=== PATIENT | female | born 1955 | race Caucasian/White ===

== ENCOUNTER 2017-01-11 11:43 | Inpatient (IN) | payer OTHER ==
[~2017-01-11] VITALS: Ht 167.6 cm; Wt 104.7 kg
[~2017-01-11 11:43] MED LIST: ADV250INHA INH; FLE10 PO; HCTZ25 PO; HYDROCODONE PO; LEVOTHYROXINE 125MCG PO; MELO15TA14 PO; MULT-1018 PO; NEX40C PO; TOLT4CAP PO; VITA-212 PO; ZES10 PO
[2017-01-11 11:46] VITALS: BP 126/85; PULSE 90; RESP 18; O2SAT 98
[2017-01-11] MEDS ORDERED: 0.9% Sodium Chloride 1,000 ML IV ONE ×2 (12:04→12:35)
[2017-01-11] MEDS ORDERED: Ondansetron 2 mg/mL 2 mL Inj IVPUSH ONE (12:05)
[2017-01-11] MEDS ORDERED: Piperacillin-Tazo 3.375 Gm Inj 3.375 GM in Dextrose 5% Minibag Plus 50 ML IV ONE (12:30)
[2017-01-11] MEDS ORDERED: Iohexol 300 mg/mL 30 mL Inj PO ONE (12:30)
--- NOTE | 2017-01-11 12:31 | ED.REPORT ---
HPI-Abd Pain F 40 and Over Date of Service Jan 11, 2017 ED Provider: Roni Lerma MD Pt is a 61 year old female presenting to the ED complaining of lower abdominal pain onset 1 week ago. Associated symptoms include nausea and vomiting (dry heaving). Denies diarrhea currently, although she did have some until yesterday. Pt was seen by her PCP 4 days ago and was placed on antibiotics for bladder infection with no relief and was sent for CT scan which showed diverticulitis. Her symptoms are persistent despite the antibiotics. Nursing Notes Stated Complaint: SENT FROM [facility] Chief Complaint: Female Abdominal Pain Nursing Notes Reviewed: Yes (Vast not reconciled) Allergies: Coded Allergies: oxybutynin (Verified Allergy, Severe, RASH, 01/11/17) phenobarbital (Verified Allergy, Severe, RASH, 01/11/17) Scheduled Budesonide/Formoterol 80-4.5 mcg Inh (Symbicort 80-4.5 mcg Inh) 120 Puff Inhaler 2 PUFFS INHALATION BID Ciprofloxacin Hcl (Cipro (eq) 500 MG-6 Tab Prepack) 1 Pkg Pkg 500 MG PO BID Esomeprazole Magnesium (Esomeprazole Magnesium) 40 Mg Capsule.dr 40 MG PO DAILY Estradiol (Estrace) 42.5 Gm Cream.appl 1 APPLIC VAGINAL BID Hydrochlorothiazide (Hydrochlorothiazide) 25 Mg Tablet 25 MG PO DAILY Levothyroxine (Levothyroxine) 125 Mcg Tablet 125 MCG PO DAILY Lisinopril (Lisinopril) 10 Mg Tablet 10 MG PO DAILY Scheduled PRN Albuterol HFA (Proair HFA) 8.5 Gm Hfa.aer.ad 2 PUFFS INHALATION Q4H PRN PRN For Shortness of Breath Albuterol Neb Soln (Albuterol Neb Soln) 2.5 Mg/3 Ml Vial.neb 3 ML INHALATION QID PRN PRN For Shortness of Breath Fluticasone Propionate (Fluticasone Propionate Nasal) 16 Gm [place].susp 1-2 SPRAYS NASAL DAILY PRN PRN For Congestion Naproxen Sodium (Aleve) 220 Mg Capsule 440 MG PO BID PRN PRN For Pain Rizatriptan (Rizatriptan) 10 Mg Tablet 10 MG PO DIRECTED PRN PRN migraine General Time Seen by MD: 12:02 Chief Complaint Abdominal pain Hx Obtained From: Patient Arrived By: Walk-in Sudden in Onset?: No Onset Occurred: 1 week ago Symptom Duration: Since onset Progression since Onset: Constant Location: : Abdomen lower Severity: Current: Moderate Severity: Maximum: Severe Associated with: Reports: Nausea, Vomiting, Denies: Diarrhea Recent Healthcare: No recent hospitalization, Recent doctor visit Similar Sx Previous: No Past Medical History Past Medical History Notes: Diverticulitis diagnosed by CT scan earlier in this week January 08 - please see CT scan, initial concern for the phlegmon versus developing abscess Med list as of 01/12/2016 included: Cipro plus Flagyl added Saturday Her own Aleve Cymbalta Flonase Hydrochlorothiazide Levothyroxine Lisinopril Nexium Pyridium rizatriptan symbicort Past Medical History Hypertension Hypothyroidism History of colon polyps GERD Asthma History of right shoulder bursitis History of retinal artery occlusion September 2015 Fibromyalgia Past Surgical History Appendectomy Hysterectomy (ovaries present) Tonsillectomy Colonoscopy 2007, for tubular adenoma Left total hip replacement 2012 Left knee arthroscopy 2014 Right knee arthroscopy 2015 Smoking History Unknown if Ever Smoker Ambulatory Status Independent Review of Systems Respiratory: Denies: Shortness of breath GI: Reports: Abdominal pain, Nausea, Vomiting, Denies: Diarrhea Complete sys rev & neg: except as marked. Physical Exam Vital Signs Vital Signs (First) Date Time Temp Pulse Resp B/P Pulse Ox O2 Delivery O2 Flow Rate FiO2 01/11/17 11:46 36.8 90 18 126/85 98 Room Air Initial VS: Reviewed, Vital signs normal Head / Eyes: Atraumatic, Normocephalic, PERRL ENT: Mucous membranes moist, Conjunctiva normal, No scleral icterus Extremities: Vascular intact, Neuro intact, No swelling, No tenderness Skin: Warm, Dry, No cyanosis Neurologic: Alert, Oriented, Nonfocal Psychiatric: Mood/affect normal, Behavior normal, Normal thought content General/Constitutional: Awake, Alert, No acute distress Distress / Hydration: Positive: Dehydration mild Fatigued Respiratory / Chest: Breath sounds NL, Breath sounds = bilat, No respiratory distress, No rales, No rhonchi, No wheezing, No stridor Cardiovascular: Heart rate NL, Regular rhythm, Heart sounds NL, Peripheral circulation NL Abdomen: No guarding, No rebound Tenderness/Guarding/Rebound: Positive: Tender RLQ... (Moderate) Interpretation & Diagnostics Interpretation & Diagnostics: Please see CT scan obtained as an outpatient January 08 Lab Results Interpretation Result Diagram: 01/11/17 1225 01/11/17 1225 Test 01/11/17 12:20 01/11/17 12:25 Urine Color Yellow (YELLOW) Urine Appearance Hazy (CLEAR,HAZY) Urine pH 7.5 (5.0-8.0) Urine Specific [place] 1.010 (1.003-1.035) Urine Protein Tracemg/dL (NEG,TRACE) Urine Glucose (UA) Negativemg/dL (NEGATIVE) Urine Ketones Negativemg/dL (NEGATIVE) Urine Occult Blood Trace (NEGATIVE) Urine Nitrite Negative (NEGATIVE) Urine Bilirubin Negative (NEGATIVE) Urine Urobilinogen Normalmg/dL (NORMAL) Urine Leukocyte Esterase Negative (NEGATIVE) Urine RBC 0-2/hpf (0-2) Urine WBC 0-5/hpf (0-5) Urine Epithelial Cells Occasional/hpf (NONE-MOD) Urine Crystals Amorphous phosphates Urine Bacteria Few/hpf (NONE-FEW) Urine Hyaline Casts None/lpf (NONE) Urine Granular Casts None seen (NONE SEEN) Urine Waxy Casts None seen (NONE SEEN) Urine Red Blood Cell Casts None seen (NONE SEEN) Urine White Blood Cell Casts None seen (NONE SEEN) Urine Mucus None seen (None Seen) Urine Trichomonas None seen (NONE SEEN) Urine Yeast None (NONE SEEN) Urinalysis Comment None Urine Culture Reflexed Not indicated White Blood Count 11.7th/mm3 (3.8-10.1) Red Blood Count 4.31mil/mm3 (3.90-5.20) Hemoglobin 13.1g/dL (12.0-15.6) Hematocrit 37.8% (35.0-46.0) Mean Corpuscular Volume 87.7fL (81-100) Mean Corpuscular Hemoglobin 30.4pg (27.0-35.0) Mean Corpuscular Hemoglobin Concent 34.7% (32.0-37.0) Red Cell Distribution Width 12.7% (12.3-15.4) Platelet Count 396bil/L (150-400) Neutrophils (%) (Auto) 76.2% (40-74) Lymphocytes (%) (Auto) 9.8% (14-46) Monocytes (%) (Auto) 10.3% (4-12) Eosinophils (%) (Auto) 2.7% (0-5) Basophils (%) (Auto) 0.3% (0-3) Sodium Level 141mEq/L (134-144) Potassium Level 4.0mEq/L (3.5-5.2) Chloride Level 101mEq/L (97-108) Carbon Dioxide Level 25mmol/L (18-29) Blood Urea Nitrogen 19mg/dL (8-27) Creatinine 0.59mg/dL (0.57-1.00) Estimat Glomerular Filtration Rate 148mL/min (>59) Glucose Level 101mg/dL (60-99) Lactic Acid Level 0.8mmol/L (0.4-2.0) Calcium Level 10.0mg/dL (8.5-10.1) Magnesium Level 1.8mg/dL (1.6-2.6) Total Bilirubin 0.4mg/dL (0.0-1.2) Aspartate Amino Transf (AST/SGOT) 15U/L (0-50) Alanine Aminotransferase (ALT/SGPT) 12U/L (0-32) Alkaline Phosphatase 130U/L (25-165) Total Protein 6.9g/dL (6.4-8.4) Albumin 3.2g/dL (3.4-5.0) Lipase 13U/L (13-60) Lab Results Interpretation: CBC positive leukocytosis CMP normal Lactic acid normal CT Abd / Pelvis Interpretation IMPRESSION: 1. Acute diverticulitis. When the patient's acute symptoms have resolved, colonoscopy would be helpful to know exclude the possibility of an underlying lesion. 2. 2 loculated fluid collections within the pelvis are compatible with abscesses. Both of these have increased in size since the prior study. These raise the suspicion for a contained perforated diverticulum. No free air is evident. 3. No bowel obstruction. 4. Probable right hepatic hemangioma appears unchanged. 5. Right basilar pulmonary nodule. Six-month followup CT of the chest is recommended. Dictated by: Ramiro Mariano M.D. on 01/11/2017 at 13:19 Study type: Abdominal CT IV contrast, Abdom CT oral contrast Interpretation / Wet Read by: Interpret - Radiologist, Discussed w radiologist Re-Eval/Medical Decision Med Decision/Clinical Course This is a 61-year-old female who developed symptoms over this past weekend, diagnosis of possible UTI and started on Cipro on Saturday, but having abdominal pain on Saturday when he saw the PCP, had a CT that was positive for diverticulitis with possible phlegmon and was continued on Cipro with Flagyl added. However while she has not had fever, she has continued have ongoing pain it has been getting worse over the past couple days, a poor appetite with some nausea-so was referred back into the ED. He has normal vitals and is not clinically toxic, she has mild right lower quadrant tenderness with where her pain began. She is status post appendectomy. Labs were obtained and revealed trace leukocytosis, but a normal lactic acid. She is hydrated. And a CT with oral and IV contrast was obtained that suggest ongoing, worsening diverticulitis with 2 small areas of possible abscess and perforated contained diverticula that are not amenable to percutaneous drainage per the radiologist. The patient's been started on Zosyn, and the Flagyl's been given parenterally. The patient's been hydrated and being admitted to the medicine service. Surgery has been consulted. The patient is nontoxic, has a nonsurgical abdomen, only mild leukocytosis, and normal vitals. And is nothing by mouth, continue IV fluids, IV antibiotics, and surgical consultation. Source of Hx: Old records Re-Evaluation/Progress : Time of Eval: 12:34 Patient Status: Condition improved Re-Evaluation/Progress Note: Discussed plan for contrast CT and admission. Consultation #1: Referral / Consult Name: Jn Pascual MD Consulted With: Hospitalist Call Returned at: 14:10 Client Services Manager: Will see patient, Agrees with plan, Accepts admit Consultation #2: Call Returned at: 14:38 Note: Radiology. Get a consultation with surgery. Consultation #3: Referral / Consult Name: Tabatha Fierro MD Consulted With: Surgeon Call Returned at: 14:41 Client Services Manager: Will see patient Counseled Regarding: Diagnosis, Lab results, Need for follow-up, When/why to return to ED Discharge & Departure Primary Impression: Acute diverticulitis Additional Impression: Intestinal diverticular abscess Disposition: ADMITTED TO HOSPITAL Discharge Condition All VS Reviewed: Yes Condition: Improved Referrals: Leslie Avila MD (PCP) Scribe Attestation Portions of this note were transcribed by Helene Wallace. IDr. Lerma personally performed the history, physical exam and medical decision-making; I reviewed and confirmed the accuracy of the information in the transcribed note. Signed by: Mohan ePters, 01/11/2017 at 1445. copies to: Leslie Avila MD, Matthew F MD Jan 11, 2017 12:31 HELENE WALLACE Jan 11, 2017 12:59
[2017-01-11] MEDS: HYDROmorphone 0.5 mg/0.5 mL iSecure Syringe IVPUSH PRN ×2 (12:34→14:36)
[2017-01-11] MEDS ORDERED: metroNIDAZOLE Inj 1,000 MG in IV Premix 1 EACH IV ONE (12:35)
[2017-01-11 12:43] LABS: BASOPHILS % (AUTO) 0.3 % (0-3); EOSINOPHILS % (AUTO) 2.7 % (0-5); MONOCYTES % (AUTO) 10.3 % (4-12); Mean Corpuscular Hemoglobin 30.4 pg (27.0-35.0); Mean Corpuscular Volume 87.7 fL (81-100); NEUTROPHILS % (AUTO) 76.2 % (40-74); Platelet Count 396 bil/L (150-400)
[2017-01-11 13:06] LABS: Magnesium 1.8 mg/dL (1.6-2.6)
[2017-01-11] MEDS ORDERED: CIPR-198 PO (13:16)
[2017-01-11] MEDS ORDERED: ALBU8.5H2 INHALATION (13:16)
[2017-01-11] MEDS ORDERED: HYDR25TA4 PO (13:16)
[2017-01-11] MEDS ORDERED: ESOM40CA53 PO (13:16)
[2017-01-11] MEDS ORDERED: ESTR42.52 VAGINAL (13:16)
[2017-01-11] MEDS ORDERED: LISI10TA PO (13:16)
[2017-01-11] MEDS ORDERED: ALBU2.5V4 INHALATION (13:16)
[2017-01-11] MEDS ORDERED: LEVO125T6 PO (13:16)
[2017-01-11] MEDS ORDERED: NAPR220C11 PO (13:16)
[2017-01-11] MEDS ORDERED: FLUT16SP NASAL (13:16)
[2017-01-11] MEDS ORDERED: RIZA10TA PO (13:16)
[2017-01-11] MEDS ORDERED: BUDE10.2 INHALATION (13:16)
[2017-01-11 13:22] LABS: APPEARANCE,URINE HAZY (CLEAR,HAZY); COLOR,URINE YELLOW (YELLOW); OCCULT BLOOD,URINE TRACE (NEGATIVE); PH,URINE 7.5 (5.0-8.0); UROBILINOGEN,URINE NORMAL (NORMAL)
[2017-01-11 14:30] VITALS: BP 129/88; PULSE 98; RESP 15; O2SAT 97
[2017-01-11] MEDS ORDERED: Alum-Mag Hydrox-Simeth 30 mL Suspension PO PRN (14:30)
[2017-01-11] MEDS ORDERED: Polyethylene Glycol (PEG) 17 Gm Powder PO PRN (14:30)
--- NOTE | 2017-01-11 14:35 | DRSVH ---
PROCEDURE: CT ABDOMEN AND PELVIS WITH CONTRAST ([id number]) INDICATIONS: refractory diverticulitis r/o abscess TECHNIQUE: After the administration of oral and intravenous contrast, 5 mm thick sections acquired from the diap hragms to the symphysis. 5 mm thick coronal and sagittal reformats were performed. For radiation do se reduction, the following was used: automated exposure control, adjustment of mA and/or kV accordi ng to patient size. COMPARISON: [facility], CT, CT ABD PELVIS W CON, 01/08/2017, 10:48. FINDINGS: Image quality: Diagnostic. ABDOMEN: Lung bases: There is a 6 mm nodule identified along the periphery of the right lung base, which is be tter seen on the current study related to differences in technique (image 6, series 3). Otherwise, t he imaged lung bases are clear. Heart size is normal. Mitral valve calcifications are present. Solid organs: The liver, spleen, adrenals, kidneys, and pancreas are essentially unchanged. There co ntinues to be a heterogeneously enhancing lesion of the posterior right hepatic lobe. Small foci of increased density are noted within the region of the neck the gallbladder. Peritoneum and bowel: The stomach is unchanged. No significant dilatation of the small bowel is evid ent to suggest an acute bowel obstruction. Distal colonic diverticulosis is again evident with focal thickening of the sigmoid colon within the pelvis. Inflammation within the pelvis is again identifi ed. There continues to be a loculated fluid collection evident within the pelvis, which measures criselda roximately 3.2 x 2.1 cm (image 61, series 2), which has increased since the prior study, previously m easuring 2.5 x 1.5 cm. An additional rounded fluid collection within the right adnexa/right pelvis i s again evident, which also has increased in size and may represent a separate loculated fluid collec tion, given its elongated appearance on the current study, measuring at least 6.3 x 2.6 cm (image 41, series 4). On the previous study, it was uncertain whether this represented a ovarian cyst or a sma ll abscess. Previously, this structure measured 4.4 x 2.3 cm. Mild mesenteric edema is evident. Sm all amount free fluid is seen within the pelvis at this location. There is no free air. Nodes and vessels: No retroperitoneal or mesenteric adenopathy. Aorta and inferior vena cava are no rmal in caliber. Bones: Degenerative changes of the spine are unchanged. No acute fracture or suspicious osseous les ion. PELVIS: Soft tissues: The urinary bladder appears to be unchanged. Small calcification at the level of the u reteral remnant is noted. The uterus is surgically absent. The ovaries are not well delineated. No free air is present. Small pelvic lymph nodes are likely reactive. Bones: No suspicious bony lesions. No acute pelvic fractures. Postoperative changes of the left hi p are again noted, creating artifact within the pelvis. IMPRESSION: 1. Acute diverticulitis. When the patient's acute symptoms have resolved, colonoscopy would be help ful to know exclude the possibility of an underlying lesion. 2. 2 loculated fluid collections within the pelvis are compatible with abscesses. Both of these hav e increased in size since the prior study. These raise the suspicion for a contained perforated dive rticulum. No free air is evident. 3. No bowel obstruction. 4. Probable right hepatic hemangioma appears unchanged. 5. Right basilar pulmonary nodule. Six-month followup CT of the chest is recommended. Dictated by: Ramiro Mariano M.D. on 01/11/2017 at 13:19 Approved by: Ramiro Mariano M.D. on 01/11/2017 at 13:33
--- NOTE | 2017-01-11 14:37 | PCM.HPMED ---
Subjective Date of Service Jan 11, 2017 Primary Provider: Admitting Physician: Jn Pascual MD Primary Care Physician: Leslie Avila MD Attending Physician: Jn Pascual MD Admit Status: From the Emergency Department, Full Admit, Admit to Red Team Chief Complaint: Progressively worsening abdominal pain/1 week History of Present Illness: 61-year-old lady was most medical history of hypertension, hypo-thyroidism,GERD , asthma, fibromyalgia and recently his diverticulitis presented to emergency room with progressively worsening abdominal pain of 1 week. She states she started to have lower abdominal, dull aching, constant pain last Saturday. She went to urgent care on Saturday. Urinalysis was done and she was started on ciprofloxacin for UTI. She continued to have lower abdominal pain and she went to see her PCP on Saturday. CT done outpatient done by PCP showed Rectosigmoid diverticulitis with a probable developing small abscess. Flagyl was added to ciprofloxacin and sent home. Abdominal pain progressively worsened which prompted ED visit. She also has nausea for the last 1 week and had 2 episodes of vomiting today. She states she had watery diarrhea 4 days prior to onset of abdominal pain last Saturday. Denies fever. Denies having urinary complaints. in ED: Vitals unremarkable, exam with lower abdominal tenderness R>L, WBC 11.7 other labs unremarkable. Repeat CT scan ordered Admission requested for acute diverticulitis rule out diverticular abscess, failed outpatient treatment Review of Systems: Comprehensive review of systems performed, pertinent positives and negatives included in history of present illness Allergies Coded Allergies: oxybutynin (Verified Allergy, Severe, RASH, 01/11/17) phenobarbital (Verified Allergy, Severe, RASH, 01/11/17) Home Medications Budesonide/Formoterol 80-4.5 mcg Inh (Symbicort 80-4.5 mcg Inh) 120 Puff Inhaler 2 PUFFS INHALATION BID Ciprofloxacin Hcl started Saturday Esomeprazole Magnesium (Esomeprazole Magnesium) 40 Mg Capsule.dr 40 MG PO DAILY Estradiol (Estrace) 42.5 Gm Cream.appl 1 APPLIC VAGINAL BID Hydrochlorothiazide (Hydrochlorothiazide) 25 Mg Tablet 25 MG PO DAILY Levothyroxine (Levothyroxine) 125 Mcg Tablet 125 MCG PO DAILY Lisinopril (Lisinopril) 10 Mg Tablet 10 MG PO DAILY Scheduled PRN Albuterol HFA (Proair HFA) 8.5 Gm Hfa.aer.ad 2 PUFFS INHALATION Q4H PRN PRN For Shortness of Breath Albuterol Neb Soln (Albuterol Neb Soln) 2.5 Mg/3 Ml Vial.neb 3 ML INHALATION QID PRN PRN For Shortness of Breath Fluticasone Propionate (Fluticasone Propionate Nasal) 16 Gm [place].susp 1-2 SPRAYS NASAL DAILY PRN PRN For Congestion Naproxen Sodium (Aleve) 220 Mg Capsule 440 MG PO BID PRN PRN For Pain Rizatriptan (Rizatriptan) 10 Mg Tablet 10 MG PO DIRECTED PRN PRN migraine PMH Diverticulitis diagnosed by CT scan earlier in this week January 08 - please see CT scan, initial concern for the phlegmon versus developing abscess Hypertension Hypothyroidism History of colon polyps GERD Asthma History of right shoulder bursitis History of retinal artery occlusion September 2015 Fibromyalgia Surgical History Appendectomy Hysterectomy (ovaries present) Tonsillectomy Colonoscopy 2007, for tubular adenoma Left total hip replacement 2012 Left knee arthroscopy 2014 Right knee arthroscopy 2015 Family History Lives with her , no pertinent family history. Social History Hx Alcohol Use: No Hx Substance Use: No Hx Tobacco Use: Yes (smokes one pack a day for the last 40 years) Smoking Status: Unknown if Ever Smoker Exam Vital Signs Vital Sign - Last Date Time Temp Pulse Resp B/P Pulse Ox O2 Delivery O2 Flow Rate FiO2 01/11/17 11:46 36.8 90 18 126/85 98 Room Air Exam Gen. patient is lying comfortably in hospital bed HEENT: Head is normocephalic atraumatic, Pupils equal and reactive, extraocular movements intact, Lungs clear to auscultation bilaterally Heart regular rate and rhythm without murmurs gallops or rubs Abdomen bilateral lower abdominal tenderness,R>L , bone sounds present Extremities pulses are present dorsalis pedis posterior tibialis and radial. tSkin is warm and dry there are no rashes, Psych alert and oriented to person place and time Neuro cranial nerves II through XII are grossly intact Lymph: There is no lymphadenopathy appreciated in the cervical supra infraclavicular regions : no rodriguez Lab and Diagnostics Result Diagram: 01/11/17 1225 01/11/17 1225 X-Rays, CTs and MRIs PROCEDURE: CT ABDOMEN AND PELVIS WITH CONTRAST ([id number]) INDICATIONS: ABDOMINAL PAIN, R/O DIVERTICULITIS IMPRESSION: 1. Rectosigmoid diverticulitis. There are at least phlegmonous soft tissue changes within the pelvis with a probable developing small abscess. No free air is seen. Please note that percutaneous drainage would be difficult given overlying bowel loops, at this time. 2. Moderate wall thickening of at least a single small bowel loop extending into the right hemipelvis is felt to be reactive. No bowel obstruction. 3. Probable constipation. 4. Probable moderate-sized right hepatic hemangioma. Dedicated liver MRI or CT with contrast is recommended. 5. Non-masslike enlargement of the left adrenal gland may be related to hyperplasia. 6. Aortic and iliac artery atherosclerosis. Note: Acute findings were discussed with Dr. Rom Avila at 1146 hours (PST) on 01/08/17. Dictated by: Ramiro Mariano M.D. on 01/08/2017 at 10:38 Assessment & Plan 61-year-old lady was most medical history of hypertension, hypo-thyroidism,GERD , asthma, fibromyalgia and recently his diverticulitis presented to emergency room with progressively worsening abdominal pain of 1 week. # Acute diverticulitis with suspected diverticular abscess,poa -Failed outpatient treatment,no SIRS -Zosyn and Flagyl started in ED, continue Zosyn for now -Awaiting repeat CT scan, will consult IR after CT scan -Pain control with morphine -Zofran when necessary for nausea -Nothing by mouth # Hypertension, chronic -Hold HCTZ and lisinopril, BP stable now #Hypothyroidism, chronic -Continue Synthroid #Asthma, chronic - Continue Symbicort #Current smoker -Smokes 1 pack a day -Nicotine patch as needed #History of GERD -PPI #ppx, -lovenox and ppi Patient admitted under inpatient status with expected length of stay > 2 midnights for severity of present symptoms, complexities of treatment plan and risk for adverse events Full code,verified with patient Resuscitation Status: CPR: Attempt Resuscitation copies to: Leslie Avila MD, Melaku MD Jan 11, 2017 14:37
[2017-01-11 14:59] VITALS: BP 129/88; PULSE 98; RESP 15; O2SAT 97
[2017-01-11] MEDS: Ondansetron 2 mg/mL 2 mL Inj IVPUSH PRN ×3 (14:59→22:36)
[2017-01-11] MEDS: 0.9% Sodium Chloride 1,000 ML IV SCH (16:00)
[2017-01-11] MEDS: Pantoprazole 4 mg/mL 10 mL Inj IVPUSH SCH (16:00)
[2017-01-11 16:15] VITALS: PULSE 94
[2017-01-11 16:33] VITALS: BP 133/90; PULSE 94; RESP 16; O2SAT 96
[2017-01-11] MEDS: HYDROmorphone 1 mg/mL Inj IVPUSH PRN ×2 (18:01→21:40)
--- NOTE | 2017-01-11 18:15 | NUR ---
Admit Pt arrived to [facility] at 1500 via stretcher. Pt is a&ox3, easily able to ambulate w/o any assistance. Pt oriented to room and call light, pt is comfortable with current situation and has had all of her questions answered regarding the current plan.
[2017-01-11 21:01] VITALS: BP 105/69; PULSE 88; RESP 16; O2SAT 93
[2017-01-11] MEDS: Piperacillin-Tazo 3.375 Gm Inj 3.375 GM in Dextrose 5% Minibag Plus 50 ML IV SCH (21:33)
[2017-01-12 00:12] VITALS: BP 140/84; PULSE 105; RESP 20; O2SAT 92
[2017-01-12 01:12] VITALS: PULSE 91
[2017-01-12] MEDS: 0.9% Sodium Chloride 1,000 ML IV SCH ×2 (01:50→13:28)
[2017-01-12] MEDS: HYDROmorphone 1 mg/mL Inj IVPUSH PRN ×6 (01:50→21:28)
[2017-01-12] MEDS: Piperacillin-Tazo 3.375 Gm Inj 3.375 GM in Dextrose 5% Minibag Plus 50 ML IV SCH ×4 (03:09→20:21)
[2017-01-12] MEDS: Ondansetron 2 mg/mL 2 mL Inj IVPUSH PRN ×4 (03:09→17:39)
--- NOTE | 2017-01-12 03:33 | CONS ---
[address] [address] CONSULTATION REPORT PATIENT: KG FLORES : 1955 MR#: [id number] ADMIT: 01/11/2017 JOB ID: [id number] DATE OF SERVICE: 01/11/2017 CHIEF COMPLAINT: A 61-year-old woman with diverticulitis; this consultation is requested by Dr. Pascual. HISTORY OF PRESENT ILLNESS: This is a 61-year-old woman who has had six days of progressive abdominal pain, fatigue, malaise, and has a new diagnosis of diverticulitis. She was seen by her primary care provider and three days ago , had a CT scan, which showed probable inflammatory change near the sigmoid colon with possible developing abscess. Today she came to the hospital and a repeat CT scan was performed showing two loculated abscesses in the pelvis. Interventional Radiology was consulted; however, the abscesses are not amenable to percutaneous drainage due to overlying bowel loops in the pelvis. Her white blood cell count was 11.5 on admission and vital signs have been normal. She is currently on Zosyn. PAST MEDICAL HISTORY: 1. Diverticulitis. 2. Hypertension. 3. Hypothyroidism. 4. History of colon polyps. 5. GERD. 6. Asthma. 7. History of right shoulder bursitis. 8. History of retinal artery occlusion, September 2015. 9. Fibromyalgia. PAST SURGICAL HISTORY: 1. Appendectomy. 2. Hysterectomy without oophorectomy. 3. Tonsillectomy. 4. Colonoscopy late 2007, tubular adenoma seen. 5. Left total hip replacement, 2012. 6. Left knee arthroscopy, 2014. 7. Right knee arthroscopy, 2015. MEDICATIONS: Symbicort, ciprofloxacin, esomeprazole, Estradiol, hydrochlorothiazide, levothyroxine, lisinopril, albuterol p.r.n., fluticasone p.r.n., naproxen p.r.n., rizatriptan. ALLERGIES: 1. OXYBUTYNIN. 2. PHENOBARBITAL. FAMILY HISTORY: Reviewed and noncontributory. SOCIAL HISTORY: She is a current one pack a day smoker and has been doing so for the last 40 years. She denies alcohol and recreational drug use. 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 Her residence is [place] of [place]. REVIEW OF SYSTEMS: A 14 point review of systems is positive for pain, malaise and also positive as noted in HPI, otherwise negative. PHYSICAL EXAMINATION: Temperature 36.6, heart rate 94, blood pressure 152/90, respiratory rate of 16, saturation 96% on room air. General: Awake and alert, in mild distress. Head: Normocephalic. Neck: Supple. Cardiac: Regular rate and rhythm, no murmurs, rubs or gallops. Respiratory: Clear to auscultation bilaterally. Abdomen: Soft, mild tenderness in the right lower quadrant and left lower quadrant. Nontender in the right upper quadrant. Mild tenderness in the left upper quadrant. No rebound or guarding. No distention. Extremities: No edema. Toes on her left side are mildly tender. Psychiatric: Normal cognition and judgment. Neurologic: No gross deficits. LABORATORIES: White blood cell count 11.5, hematocrit 37.8, platelets 396. Comprehensive metabolic panel within normal limits. IMAGING: CT scan images from today as well as three days ago, are personally reviewed. She has two loculated fluid collections compatible with abscesses associated with acute diverticulitis. There is no sign of free perforation. She also has a probable right hepatic hemangioma pending liver CT and a right basilar pulmonary nodule pending six month followup CT scan. ASSESSMENT: A 61-year-old woman with complicated diverticulitis resulting in pelvic abscesses which are not amenable to percutaneous drainage. She is clinically stable. RECOMMENDATIONS: 1. Continue antibiotics and bowel rest as you are. Follow overall clinical progress. She may require repeat CT scan in approximately 4-5 days to determine if abscesses have improved or if they are worsening and if so, have become drainable. 2. This is an episode of complicated diverticulitis and long-term sigmoid colectomy is recommended. While it is preferable to wait until her diverticulitis has improved with nonoperative management, if she worsens or does not improve, surgery while she is an inpatient will be considered. Because she is a smoker, it is recommended that she stop smoking before any operation and this was noted as potential risk factor for postsurgical complications such as an anastomotic leak. 3. Her last colonoscopy was in 2007 and she had serrated adenomas on her pathology. If she improves to the point of discharge, colonoscopy prior to surgical resection is preferable, although this will depend on her overall clinical course. 4. Four phase CT scan of the liver should be performed to evaluate her hepatic lesion. 5. CT scan of the chest in six months was recommended by radiology for pulmonary nodule, even more pertinent given her smoking history. 6. The surgical team will continue to follow the patient while she is in-house. Thank you very much for this interesting consultation. FAM
[2017-01-12 04:37] VITALS: BP 114/73; PULSE 86; RESP 18; O2SAT 96
--- NOTE | 2017-01-12 05:32 | NUR ---
Pain/Nausea Pt c/o pain in abdomen 3-12/12 and later in shift headache 03/14. Dilaudid 1mg effective for abdomen pain, but not headache. Nausea without vomitus, related to pain, occurred throughout night with little help from Zofran 4mg. Trying cold washrags on forehead for pain relief. Will continue frequent rounding to assess.
[2017-01-12 05:57] VITALS: PULSE 86
[2017-01-12 07:09] LABS: BASOPHILS % (AUTO) 0.3 % (0-3); EOSINOPHILS % (AUTO) 1.6 % (0-5); MONOCYTES % (AUTO) 9.7 % (4-12); Mean Corpuscular Hemoglobin 30.2 pg (27.0-35.0); Mean Corpuscular Volume 89.9 fL (81-100); NEUTROPHILS % (AUTO) 78.7 % (40-74); Platelet Count 391 bil/L (150-400)
[2017-01-12 08:04] LABS: Magnesium 1.8 mg/dL (1.6-2.6)
[2017-01-12] MEDS ORDERED: Fluticasone 0.05% 15 Spray/2 Gm 16 Gm Nasal Spray NASAL PRN (08:50)
[2017-01-12] MEDS: Pantoprazole 4 mg/mL 10 mL Inj IVPUSH SCH (09:05)
[2017-01-12] MEDS: Pantoprazole 40 mg ER24 Tablet PO SCH (09:16)
[2017-01-12 09:53] VITALS: BP 141/93; PULSE 92; RESP 16; O2SAT 92
--- NOTE | 2017-01-12 10:00 | NUR ---
Pain/Nausea Patient reports CROWLEY 02/11, and reports Dilaudid has been ineffective. Hospitalist paged with request to order Tylenol. Pt given PO Tylenol and reports CROWLEY "getting better now" 11/12. Pt also given IV Dilaudid for abdominal pain 02/11 with reported improvement to 10/12. Patient reports that Zofran 4mg has not been relieving nausea. Increased to 8mg. Patient reports some improvement. Continue to monitor for pain/nausea, and effectiveness of medications.
[2017-01-12] MEDS ORDERED: Albuterol 2.5 mg/3 mL Inhalation Solution NEB PRN (11:00)
--- NOTE | 2017-01-12 11:15 | NUR ---
Social Work- Brief Note Data: EMR reviewed. Pt is a 61 year old female admitted 01/11/17 admitted for diverticulitis per H&P. Pt's insurance is [employer]. Pt's PCP is Leslie Avila MD. NOK is Shmuel Cash, . Per chart review pt resides in [place] with her where she is independent at baseline. Per RN notes, pt is ambulating in room. Per MD in rounds, pt has a diverticular abscess and will require treatment with IV abx and repeat CT scan in 4-5 days, per Surgery. Pt has DPOA on file in hard chart. Pt anticipated to discharge home no needs, SW will continue to follow for IV abx needs at discharge. Assessment: Pt who is independent at baseline. Plan: Pt anticipated to discharge home no needs, SW will continue to follow for IV abx needs at discharge. Paige Fernandez MSW
--- NOTE | 2017-01-12 13:08 | PCM.PNMED ---
Subjective Date of Service Jan 12, 2017 Subjective Continues to have lower abdominal pain but slightly improved. Tolerating diet. Afebrile. Exam Vital Signs Vital Sign - Last Date Time Temp Pulse Resp B/P Pulse Ox O2 Delivery O2 Flow Rate FiO2 01/12/17 09:53 36.4 92 16 141/93 92 Room Air Intake and Output 01/11/17 01/11/17 01/12/17 Cumulative From/Thru 15:00 23:00 07:00 01/11/17 11:46 - 01/12/17 06:01 Intake Total 200 ml 2151 ml 2351 ml Balance 200 ml 2151 ml 2351 ml Intake Oral 200 ml 700 ml 900 ml IV Total 1451 ml 1451 ml # Voids 1 4 5 # Bowel Movements 0 0 Exam Gen. patient is lying comfortably in hospital bed HEENT: Head is normocephalic atraumatic, Pupils equal and reactive, extraocular movements intact, Lungs clear to auscultation bilaterally Heart regular rate and rhythm without murmurs gallops or rubs Abdomen bilateral lower abdominal tenderness,R>L , bone sounds present Extremities pulses are present dorsalis pedis posterior tibialis and radial. tSkin is warm and dry there are no rashes, Psych alert and oriented to person place and time Neuro cranial nerves II through XII are grossly intact Lymph: There is no lymphadenopathy appreciated in the cervical supra infraclavicular regions : no rodriguez IVs and Medications Medications Reviewed: Medications were reviewed in detail Lab and Diagnostics Result Diagram: 01/12/17 0700 01/12/17 0700 X-Rays, CTs and MRIs PROCEDURE: CT ABDOMEN AND PELVIS WITH CONTRAST (PNL-7102) INDICATIONS: ABDOMINAL PAIN, R/O DIVERTICULITIS IMPRESSION: 1. Rectosigmoid diverticulitis. There are at least phlegmonous soft tissue changes within the pelvis with a probable developing small abscess. No free air is seen. Please note that percutaneous drainage would be difficult given overlying bowel loops, at this time. 2. Moderate wall thickening of at least a single small bowel loop extending into the right hemipelvis is felt to be reactive. No bowel obstruction. 3. Probable constipation. 4. Probable moderate-sized right hepatic hemangioma. Dedicated liver MRI or CT with contrast is recommended. 5. Non-masslike enlargement of the left adrenal gland may be related to hyperplasia. 6. Aortic and iliac artery atherosclerosis. Note: Acute findings were discussed with Dr. Rom Avila at 1146 hours (PST) on 01/08/17. Dictated by: Ramiro Mariano M.D. on 01/08/2017 at 10:38 PROCEDURE: CT ABDOMEN AND PELVIS WITH CONTRAST (PNL-7102) INDICATIONS: refractory diverticulitis r/o abscess TECHNIQUE: After the administration of oral and intravenous contrast, 5 mm thick sections acquired from the diaphragms to the symphysis. 5 mm thick coronal and sagittal reformats were performed. For radiation dose reduction, the following was used : automated exposure control, adjustment of mA and/or kV according to patient size. COMPARISON: [facility], CT, CT ABD PELVIS W CON, 01/08/2017, 10:48. IMPRESSION: 1. Acute diverticulitis. When the patient's acute symptoms have resolved, colonoscopy would be helpful to know exclude the possibility of an underlying lesion. 2. 2 loculated fluid collections within the pelvis are compatible with abscesses. Both of these have increased in size since the prior study. These raise the suspicion for a contained perforated diverticulum. No free air is evident. 3. No bowel obstruction. 4. Probable right hepatic hemangioma appears unchanged. 5. Right basilar pulmonary nodule. Six-month followup CT of the chest is recommended. Dictated by: Ramiro Mariano M.D. on 01/11/2017 at 13:19 Assessment & Plan 61-year-old lady was most medical history of hypertension, hypo-thyroidism,GERD , asthma, fibromyalgia and recently his diverticulitis presented to emergency room with progressively worsening abdominal pain of 1 week. # Acute diverticulitis with diverticular abscess,poa -Failed outpatient treatment,no SIRS -Zosyn and Flagyl started in ED, continue Zosyn for now -repeat CT scan shows 2 loculated abscess, discussed with IR, abscess deep in pelvis and multilocated. Difficult for IR drain. Continue IV antibiotics and repeat CT scan in 4-[address] Fierro -Serial abdominal exams -Pain control with morphine -Zofran when necessary for nausea -liquid diet started ,advance as tolerated # Hypertension, chronic -Resume HCTZ and lisinopril, BP stable now #Hypothyroidism, chronic -Continue Synthroid #Asthma, chronic - Continue Symbicort #Current smoker -Smokes 1 pack a day -Nicotine patch as needed #History of GERD -PPI #ppx, -lovenox and ppi Patient admitted under inpatient status with expected length of stay > 2 midnights for severity of present symptoms, complexities of treatment plan and risk for adverse events Full code,verified with patient Disposition: Pending clinical course Resuscitation Status: CPR: Attempt Resuscitation Jn Pascual MD Jan 12, 2017 13:08
[2017-01-12] MEDS: Fluticasone-Salmeterol 100-50 Inhaler INHALATION SCH ×2 (15:50→20:21)
[2017-01-12 18:27] VITALS: BP 128/85; PULSE 89; RESP 16; O2SAT 96
[2017-01-12] MEDS: ESTRADIOL VAGINAL TOPICAL SCH (20:24)
[2017-01-12] MEDS: MetoCLOpramide 5 mg/mL 2 mL Inj IVPUSH PRN (20:32)
[2017-01-13] MEDS: Ondansetron 2 mg/mL 2 mL Inj IVPUSH PRN ×2 (00:29→17:44)
[2017-01-13] MEDS: HYDROmorphone 1 mg/mL Inj IVPUSH PRN ×4 (00:30→21:03)
[2017-01-13 00:37] VITALS: BP 116/80; PULSE 102; RESP 18; O2SAT 96
[2017-01-13] MEDS: Piperacillin-Tazo 3.375 Gm Inj 3.375 GM in Dextrose 5% Minibag Plus 50 ML IV SCH ×4 (02:33→20:28)
[2017-01-13] MEDS: MetoCLOpramide 5 mg/mL 2 mL Inj IVPUSH PRN ×3 (04:19→20:29)
[2017-01-13 06:19] VITALS: BP 124/83; PULSE 94; RESP 18; O2SAT 94
--- NOTE | 2017-01-13 06:32 | NUR ---
Shift note continue alternating Zofran and Reglan for nausea and Dilaudid for abd pain and Imitrex as well as Tylenol for CROWLEY At this time manageable
[2017-01-13] MEDS: Pantoprazole 40 mg ER24 Tablet PO SCH (06:38)
[2017-01-13] MEDS: Pantoprazole 4 mg/mL 10 mL Inj IVPUSH SCH (07:10)
[2017-01-13] MEDS: ESTRADIOL VAGINAL TOPICAL SCH ×2 (07:12→20:30)
[2017-01-13 07:45] VITALS: BP 127/86; PULSE 95; RESP 18; O2SAT 96
[2017-01-13] MEDS: Fluticasone-Salmeterol 100-50 Inhaler INHALATION SCH ×2 (07:52→20:29)
[2017-01-13 09:28] LABS: BASOPHILS % (AUTO) 0.2 % (0-3); EOSINOPHILS % (AUTO) 1.2 % (0-5); MONOCYTES % (AUTO) 9.4 % (4-12); Mean Corpuscular Hemoglobin 29.9 pg (27.0-35.0); Mean Corpuscular Volume 89.1 fL (81-100); NEUTROPHILS % (AUTO) 79.3 % (40-74); Platelet Count 436 bil/L (150-400)
--- NOTE | 2017-01-13 13:11 | PCM.PNMED ---
Subjective Date of Service Jan 13, 2017 Subjective Pain improving. Tolerating diet. Afebrile. Exam Vital Signs Vital Sign - Last Date Time Temp Pulse Resp B/P Pulse Ox O2 Delivery O2 Flow Rate FiO2 01/13/17 07:45 36.8 95 18 127/86 96 Room Air Intake and Output 01/12/17 01/12/17 01/13/17 Cumulative From/Thru 15:00 23:00 07:00 01/11/17 11:46 - 01/13/17 06:31 Intake Total 1568 ml 1571 ml 5490 ml Balance 1568 ml 1571 ml 5490 ml Intake Oral 672 ml 800 ml 2372 ml IV Total 896 ml 771 ml 3118 ml # Voids 4 8 17 # Bowel Movements 0 Exam Gen. patient is lying comfortably in hospital bed HEENT: Head is normocephalic atraumatic, Pupils equal and reactive, extraocular movements intact, Lungs clear to auscultation bilaterally Heart regular rate and rhythm without murmurs gallops or rubs Abdomen bilateral lower abdominal tenderness,R>L , bone sounds present Extremities pulses are present dorsalis pedis posterior tibialis and radial. tSkin is warm and dry there are no rashes, Psych alert and oriented to person place and time Neuro cranial nerves II through XII are grossly intact Lymph: There is no lymphadenopathy appreciated in the cervical supra infraclavicular regions : no rodriguez IVs and Medications Medications Reviewed: Medications were reviewed in detail Lab and Diagnostics Result Diagram: 01/13/17 0850 01/12/17 0700 X-Rays, CTs and MRIs PROCEDURE: CT ABDOMEN AND PELVIS WITH CONTRAST ([id number]) INDICATIONS: ABDOMINAL PAIN, R/O DIVERTICULITIS IMPRESSION: 1. Rectosigmoid diverticulitis. There are at least phlegmonous soft tissue changes within the pelvis with a probable developing small abscess. No free air is seen. Please note that percutaneous drainage would be difficult given overlying bowel loops, at this time. 2. Moderate wall thickening of at least a single small bowel loop extending into the right hemipelvis is felt to be reactive. No bowel obstruction. 3. Probable constipation. 4. Probable moderate-sized right hepatic hemangioma. Dedicated liver MRI or CT with contrast is recommended. 5. Non-masslike enlargement of the left adrenal gland may be related to hyperplasia. 6. Aortic and iliac artery atherosclerosis. Note: Acute findings were discussed with Dr. Rom Avila at 1146 hours (PST) on 01/08/17. Dictated by: Ramiro Mariano M.D. on 01/08/2017 at 10:38 PROCEDURE: CT ABDOMEN AND PELVIS WITH CONTRAST ([id number]) INDICATIONS: refractory diverticulitis r/o abscess TECHNIQUE: After the administration of oral and intravenous contrast, 5 mm thick sections acquired from the diaphragms to the symphysis. 5 mm thick coronal and sagittal reformats were performed. For radiation dose reduction, the following was used : automated exposure control, adjustment of mA and/or kV according to patient size. COMPARISON: [facility], CT, CT ABD PELVIS W CON, 01/08/2017, 10:48. IMPRESSION: 1. Acute diverticulitis. When the patient's acute symptoms have resolved, colonoscopy would be helpful to know exclude the possibility of an underlying lesion. 2. 2 loculated fluid collections within the pelvis are compatible with abscesses. Both of these have increased in size since the prior study. These raise the suspicion for a contained perforated diverticulum. No free air is evident. 3. No bowel obstruction. 4. Probable right hepatic hemangioma appears unchanged. 5. Right basilar pulmonary nodule. Six-month followup CT of the chest is recommended. Dictated by: Ramiro Mariano M.D. on 01/11/2017 at 13:19 Assessment & Plan 61-year-old lady was most medical history of hypertension, hypo-thyroidism,GERD , asthma, fibromyalgia and recently his diverticulitis presented to emergency room with progressively worsening abdominal pain of 1 week. # Acute diverticulitis with diverticular abscess,poa -Failed outpatient treatment,no SIRS -Zosyn and Flagyl started in ED, continue Zosyn for now -repeat CT scan shows 2 loculated abscess, discussed with IR, abscess deep in pelvis and multilocated. Difficult for IR drain. Continue IV antibiotics and repeat CT scan in 4-[address] Fierro -Serial abdominal exams -Pain control with morphine -Zofran when necessary for nausea -liquid diet started ,advance as tolerated # Hypertension, chronic -Resume HCTZ and lisinopril, BP stable now #Hypothyroidism, chronic -Continue Synthroid #Asthma, chronic - Continue Symbicort #Current smoker -Smokes 1 pack a day -Nicotine patch as needed #History of GERD -PPI #ppx, -lovenox and ppi Patient admitted under inpatient status with expected length of stay > 2 midnights for severity of present symptoms, complexities of treatment plan and risk for adverse events Full code,verified with patient Disposition: Pending clinical course Resuscitation Status: CPR: Attempt Resuscitation Jn Pascual MD Jan 13, 2017 13:11
--- NOTE | 2017-01-13 14:18 | PROG NOTE ---
[address] [address] PROGRESS NOTE PATIENT: KG FLORES : 1955 MR#: [id number] ADMIT: 01/11/2017 JOB ID: [id number] DATE: 01/13/2017 SUBJECTIVE/OBJECTIVE: She says that she is having less pain, is passing some gas, but has not had a bowel movement. She is not particularly hungry. She has been afebrile, stable vital signs except for a single pulse of 102. Her abdomen is nontender though given her body habitus, it is difficult to obtain a detailed examination. White count remains elevated at 12.7. her hematocrit is 35.8. IMPRESSION/PLAN: Subjectively, she is responding to IV antibiotics. I would keep her on clear liquids and not advance her diet until she shows further improvement. I have reviewed her CAT scan and will discuss with Dr. Fierro the possibility of having Interventional Radiology perform a transgluteal drainage of this abscess if it does not respond to IV antibiotics.
[2017-01-13 17:40] VITALS: BP 123/81; PULSE 97; RESP 16; O2SAT 98
[2017-01-13 22:27] VITALS: BP 116/74; PULSE 98; RESP 18; O2SAT 93
[2017-01-14] MEDS: HYDROmorphone 1 mg/mL Inj IVPUSH PRN ×5 (00:49→19:27)
[2017-01-14] MEDS: Piperacillin-Tazo 3.375 Gm Inj 3.375 GM in Dextrose 5% Minibag Plus 50 ML IV SCH ×4 (01:59→19:27)
[2017-01-14 06:26] LABS: BASOPHILS % (AUTO) 0.2 % (0-3); EOSINOPHILS % (AUTO) 2.6 % (0-5); MONOCYTES % (AUTO) 10.6 % (4-12); Mean Corpuscular Hemoglobin 29.9 pg (27.0-35.0); NEUTROPHILS % (AUTO) 75.3 % (40-74); Platelet Count 423 bil/L (150-400)
[2017-01-14] MEDS: Pantoprazole 40 mg ER24 Tablet PO SCH (06:28)
[2017-01-14] MEDS: Ondansetron 2 mg/mL 2 mL Inj IVPUSH PRN ×2 (06:28→19:27)
[2017-01-14 06:32] VITALS: BP 120/82; PULSE 89; RESP 17; O2SAT 95
--- NOTE | 2017-01-14 06:35 | NUR ---
Shift note Uneventful night continue alternating Zofran and Reglan for nausea Dilaudid for pain effective
[2017-01-14] MEDS: ESTRADIOL VAGINAL TOPICAL SCH ×2 (08:30→19:20)
[2017-01-14] MEDS: Fluticasone-Salmeterol 100-50 Inhaler INHALATION SCH ×2 (08:37→19:28)
[2017-01-14 08:40] VITALS: BP 133/88; PULSE 78; RESP 16; O2SAT 95
[2017-01-14 12:55] VITALS: BP 121/82; PULSE 66; RESP 16; O2SAT 95
[2017-01-14] MEDS: MetoCLOpramide 5 mg/mL 2 mL Inj IVPUSH PRN (13:03)
--- NOTE | 2017-01-14 14:31 | PCM.PNMED ---
Subjective Date of Service Jan 14, 2017 Subjective c/o mild nausea, thinks that it could be from medicine scar still has mild LLQ pain, with palpation tolerating clear diet explained about tentative plan of drainage vs medical tx, understood Exam Vital Signs Vital Sign - Last Date Time Temp Pulse Resp B/P Pulse Ox O2 Delivery O2 Flow Rate FiO2 01/14/17 06:32 36.9 89 17 120/82 95 Room Air Intake and Output 01/13/17 01/13/17 01/14/17 Cumulative From/Thru 15:00 23:00 07:00 01/11/17 11:46 - 01/14/17 06:33 Intake Total 480 ml 982 ml 533 ml 7485 ml Balance 480 ml 982 ml 533 ml 7485 ml Intake Oral 480 ml 720 ml 400 ml 3972 ml IV Total 262 ml 133 ml 3513 ml # Voids 8 7 32 # Bowel Movements 0 Exam NAD, comfortably laying down on the bed no JVD, MMM, no LAD RRR, nl s1, s2 no mrg CTAB, no w,c S,mild td on LLQ, ND,hypoactiveBS+ warm, no edema, pulses 2/2 Lab and Diagnostics Result Diagram: 01/14/17 0545 01/14/17 0545 X-Rays, CTs and MRIs PROCEDURE: CT ABDOMEN AND PELVIS WITH CONTRAST (PNL-7102) INDICATIONS: ABDOMINAL PAIN, R/O DIVERTICULITIS IMPRESSION: 1. Rectosigmoid diverticulitis. There are at least phlegmonous soft tissue changes within the pelvis with a probable developing small abscess. No free air is seen. Please note that percutaneous drainage would be difficult given overlying bowel loops, at this time. 2. Moderate wall thickening of at least a single small bowel loop extending into the right hemipelvis is felt to be reactive. No bowel obstruction. 3. Probable constipation. 4. Probable moderate-sized right hepatic hemangioma. Dedicated liver MRI or CT with contrast is recommended. 5. Non-masslike enlargement of the left adrenal gland may be related to hyperplasia. 6. Aortic and iliac artery atherosclerosis. Note: Acute findings were discussed with Dr. Rom Avila at 1146 hours (PST) on 01/08/17. Dictated by: Ramiro Mariano M.D. on 01/08/2017 at 10:38 PROCEDURE: CT ABDOMEN AND PELVIS WITH CONTRAST (PNL-7102) INDICATIONS: refractory diverticulitis r/o abscess TECHNIQUE: After the administration of oral and intravenous contrast, 5 mm thick sections acquired from the diaphragms to the symphysis. 5 mm thick coronal and sagittal reformats were performed. For radiation dose reduction, the following was used : automated exposure control, adjustment of mA and/or kV according to patient size. COMPARISON: [facility], CT, CT ABD PELVIS W CON, 01/08/2017, 10:48. IMPRESSION: 1. Acute diverticulitis. When the patient's acute symptoms have resolved, colonoscopy would be helpful to know exclude the possibility of an underlying lesion. 2. 2 loculated fluid collections within the pelvis are compatible with abscesses. Both of these have increased in size since the prior study. These raise the suspicion for a contained perforated diverticulum. No free air is evident. 3. No bowel obstruction. 4. Probable right hepatic hemangioma appears unchanged. 5. Right basilar pulmonary nodule. Six-month followup CT of the chest is recommended. Dictated by: Ramiro Mariano M.D. on 01/11/2017 at 13:19 Assessment & Plan 61-year-old lady was most medical history of hypertension, hypo-thyroidism,GERD , asthma, fibromyalgia and recently his diverticulitis presented to emergency room with progressively worsening abdominal pain of 1 week. # Acute diverticulitis with diverticular abscess,poa, Failed outpatient treatment,no SIRS -pt is clinically stable, with non-surgical tx, afebrile, leukocytosis continued -Zosyn and Flagyl started in ED, continue Zosyn for now -repeat CT scan shows 2 loculated abscess, discussed with IR, abscess deep in pelvis and multilocated. Difficult for IR drain. Continue IV antibiotics and repeat CT scan in 4-[address] Fierro -will repeat CT likely on 01/16 -Serial abdominal exams -Pain control with morphine -Zofran when necessary for nausea -liquid diet started ,advance as tolerated # Hypertension, chronic -Resume HCTZ and lisinopril, BP stable now #Hypothyroidism, chronic -Continue Synthroid #Asthma, chronic - Continue Symbicort #Current smoker -Smokes 1 pack a day -Nicotine patch as needed #History of GERD -PPI #ppx, -lovenox and ppi Full code,verified with patient Disposition: Pending clinical course Resuscitation Status: CPR: Attempt Resuscitation Time spent 35min Jamie Skinner MD Jan 14, 2017 08:00
--- NOTE | 2017-01-14 15:41 | PCM.PNSURG ---
Subjective Date of Service: Jan 14, 2017 Date of Service: Jan 14, 2017 Visit Information: Reason for Visit Diverticulitis Date of Admission: Jan 11, 2017 at 14:19 Hospital Day # 4 Subjective: Danuta continues to have stable abdominal pain. She is not feeling fever or chills. She is tolerating oral full liquid diet. She is not feeling nauseous and has not been vomiting. Postop General: No Shortness of Breath, No Chest Pain Gastrointestinal: No N/V Objective Vital Sign- Last 8 Hours Date Time Temp Pulse Resp B/P Pulse Ox O2 Delivery O2 Flow Rate FiO2 01/14/17 08:40 36.9 78 16 133/88 95 Room Air 01/14/17 06:32 36.9 89 17 120/82 95 Room Air Intake and Output- Last 8 Hour 01/14/17 Cumulative From/Thru 07:00 01/11/17 11:46 - 01/14/17 06:33 Intake Total 533 ml 7485 ml Balance 533 ml 7485 ml Intake Oral 400 ml 3972 ml IV Total 133 ml 3513 ml # Voids 7 32 # Bowel Movements 0 General: Alert, Oriented X3, Cooperative, No Acute Distress Neck: Supple Lungs: Clear to Auscultation Heart: Regular Rate/Rhythm, No Murmurs/Rubs/Gallops Abdomen: Soft, Appropriately tender, Other (pain to palpation in left lower quadrant) Extremities: Distal Pulses Palpable, Warm Neuro: Grossly Neurologically Intact Catheters: None Result Diagram: 01/14/17 0545 01/14/17 0545 Lab & Micro Results: leukocytosis remains elevated and stable at 12.1 this morning 75.3% neutrophils Assessment & Plan Impression 61 yo female with complicated diverticulitis resulting in pelvic abscesses which are not amenable to percutaneous drainage. Patient continues to be clinically stable. Case was again discussed with interventional radiology to determine ability to do a trans gluteal approach to drainage of abscesses. Dr. Love states that the two fluid collections are loculated but large enough (one axis of a loculation must be >3cm to deploy drain into cavity), they are higher in the pelvis and surrounded either by bone and bowel, or bowel alone. She states that the trans gluteal approach is the usual way they are drained however these abscesses are not amenable to percutaneous drainage from any approach. Other approaches were discussed such as transvaginal or transrectal. We do not have the necessary ultrasound probe at this facility and based on the CT scan from January 11. The two fluid collections are not accessible from this approach so transfer to a different facility for drainage is not necessary at this time. Problems: Plan 1. Continue antibiotics and bowel rest 2. Repeat CT on 01/16/17 as long as patient remains clinically stable to assess for progress of abscesses and plan for most appropriate next step 3. Per Dr. Fierro: This is an episode of complicated diverticulitis and long- term sigmoid colectomy is recommended. While it is preferable to wait until her diverticulitis has improved with nonoperative management, if she worsens or does not improve, surgery while she is an inpatient will be considered. Because she is a smoker, it is recommended that she stop smoking before any operation and this was noted as potential risk factor for postsurgical complications such as an anastomotic leak. 4. If patient improves to the point of discharge, colonoscopy prior to surgical resection is preferable, although this will depend on her overall clinical course. 5. The surgical team will continue to follow the patient while she is in- house. Pain Management: Per hospitalist team VTE Prophylaxis: Sub-Q Enoxaparin Resuscitation Status: CPR: Attempt Resuscitation Attending Statement: I agree with Dr. Lloyd's assessment and plan. copies to: Miguel Valdivia MD; Tabatha Fierro MD, Erika R DO Jan 14, 2017 12:03 Miguel Valdivia MD Jan 18, 2017 13:46
[2017-01-14 16:25] VITALS: BP 117/78; PULSE 92; RESP 16; O2SAT 98
--- NOTE | 2017-01-14 16:57 | NUR ---
NUTRITION ASSESSMENT: ASSESS: 61YO F admit with complicated diverticulitis resulting in pelvic abscess not amenable to percutaneous drainage, LT plan for sigmoid colectomy recommended, if not improvement surgery will consider as inpatient. Noted pt to continue antibiotics, bowel rest and repeat CT. PMHX: Diverticulitis,HTN,hypothyroid,GERD,Colon Polyps,fibromyalgia DIET: Full Liquid. PO 50% all trays LABS: Glu 114, Alb 3.3 MEDS: Reviewed GI: abd pain continues, no n/v WEIGHT: 104.55kg BMI: 37.2 EST.NEEDS: OBESE Kcal: 4913-1446 Pro: 70-90g NUTRITION DIAGNOSIS: (1) Altered GI tract related to alteration in GI tract function/structure as evidenced by complicated diverticulitis/pelvic abscess. INTERVENTION: (1) Will add Ensure while on Full liquid diet. MONITOR/EVALUATE: Diet advancement/po intake, GI status, labs. F/U per moderate risk.
--- NOTE | 2017-01-14 19:57 | NUR ---
Pain/activity Pt. reporting pain to be in her low abd., across the pelvis. Primarily rated 8/10. Pt. has been given 1mg IV diluadid every 3 hrs per her request. Pain medication effective. Pt. also having bouts of nausea, has received reglan with good relief. Pt. up and ambulatory in room and bathroom, steady gait observed. Pt. states that she is feeling less bloated today, passing gas. Had one small bm. IV zosyn infusing per orders. Care continues.
[2017-01-14 21:29] VITALS: BP 127/82; PULSE 91; RESP 19; O2SAT 96
[2017-01-15] MEDS: Piperacillin-Tazo 3.375 Gm Inj 3.375 GM in Dextrose 5% Minibag Plus 50 ML IV SCH ×4 (01:41→20:11)
[2017-01-15] MEDS: HYDROmorphone 1 mg/mL Inj IVPUSH PRN ×5 (01:46→20:16)
--- NOTE | 2017-01-15 04:54 | NUR ---
PAIN/NAUSEA Pt receiving 1mg Dilaudid for effective pain management--ordered q3h, but pt has not been receiving it that often. Gave one dose 4mg zofran this shift for effective nausea management. Reglan also ordered, not given this shift. Continuing care.
[2017-01-15] MEDS: Ondansetron 2 mg/mL 2 mL Inj IVPUSH PRN ×3 (05:19→20:16)
[2017-01-15] MEDS: Pantoprazole 40 mg ER24 Tablet PO SCH ×2 (05:19→08:44)
[2017-01-15 05:31] VITALS: BP 129/84; PULSE 99; RESP 20; O2SAT 98
[2017-01-15 07:14] LABS: BASOPHILS % (AUTO) 0.2 % (0-3); MONOCYTES % (AUTO) 9.8 % (4-12); Mean Corpuscular Hemoglobin 30.3 pg (27.0-35.0); Mean Corpuscular Volume 90.1 fL (81-100); NEUTROPHILS % (AUTO) 77.1 % (40-74); Platelet Count 480 bil/L (150-400)
[2017-01-15 07:28] LABS: Magnesium 1.9 mg/dL (1.6-2.6); Phosphorus 4.3 mg/dL (2.5-4.9)
[2017-01-15] MEDS: ESTRADIOL VAGINAL TOPICAL SCH ×2 (08:30→20:07)
[2017-01-15] MEDS: Fluticasone-Salmeterol 100-50 Inhaler INHALATION SCH ×2 (08:44→20:10)
--- NOTE | 2017-01-15 09:58 | PCM.PNMED ---
Subjective Date of Service Jan 15, 2017 Subjective pt is clinically stable but wbc is elevated, c/o same degree LLQ pain, no n/v awaits [employer] or [employer] principal plan with medical tx for now afebrile, HD stable Exam Vital Signs Vital Sign - Last Date Time Temp Pulse Resp B/P Pulse Ox O2 Delivery O2 Flow Rate FiO2 01/15/17 05:31 37.0 99 20 129/84 98 Room Air Intake and Output 01/14/17 01/14/17 01/15/17 Cumulative From/Thru 15:00 23:00 07:00 01/11/17 11:46 - 01/15/17 05:31 Intake Total 1030 ml 1050 ml 9565 ml Balance 1030 ml 1050 ml 9565 ml Intake Oral 811 ml 840 ml 5623 ml IV Total 219 ml 210 ml 3942 ml # Voids 8 6 46 # Bowel Movements 1 1 Exam NAD, comfortably laying down on the bed no JVD, MMM, no LAD RRR, nl s1, s2 no mrg CTAB, no w,c S,mild td on LLQ, ND,hypoactiveBS+ warm, no edema, pulses 2/2 IVs and Medications Medications Reviewed: Medications were reviewed in detail Lab and Diagnostics Result Diagram: 01/15/17 0640 01/15/17 0640 X-Rays, CTs and MRIs PROCEDURE: CT ABDOMEN AND PELVIS WITH CONTRAST ([id number]) INDICATIONS: ABDOMINAL PAIN, R/O DIVERTICULITIS IMPRESSION: 1. Rectosigmoid diverticulitis. There are at least phlegmonous soft tissue changes within the pelvis with a probable developing small abscess. No free air is seen. Please note that percutaneous drainage would be difficult given overlying bowel loops, at this time. 2. Moderate wall thickening of at least a single small bowel loop extending into the right hemipelvis is felt to be reactive. No bowel obstruction. 3. Probable constipation. 4. Probable moderate-sized right hepatic hemangioma. Dedicated liver MRI or CT with contrast is recommended. 5. Non-masslike enlargement of the left adrenal gland may be related to hyperplasia. 6. Aortic and iliac artery atherosclerosis. Note: Acute findings were discussed with Dr. Rom Avila at 1146 hours (PST) on 01/08/17. Dictated by: Ramiro Mariano M.D. on 01/08/2017 at 10:38 PROCEDURE: CT ABDOMEN AND PELVIS WITH CONTRAST ([id number]) INDICATIONS: refractory diverticulitis r/o abscess TECHNIQUE: After the administration of oral and intravenous contrast, 5 mm thick sections acquired from the diaphragms to the symphysis. 5 mm thick coronal and sagittal reformats were performed. For radiation dose reduction, the following was used : automated exposure control, adjustment of mA and/or kV according to patient size. COMPARISON: [facility], CT, CT ABD PELVIS W CON, 01/08/2017, 10:48. IMPRESSION: 1. Acute diverticulitis. When the patient's acute symptoms have resolved, colonoscopy would be helpful to know exclude the possibility of an underlying lesion. 2. 2 loculated fluid collections within the pelvis are compatible with abscesses. Both of these have increased in size since the prior study. These raise the suspicion for a contained perforated diverticulum. No free air is evident. 3. No bowel obstruction. 4. Probable right hepatic hemangioma appears unchanged. 5. Right basilar pulmonary nodule. Six-month followup CT of the chest is recommended. Dictated by: Ramiro Mariano M.D. on 01/11/2017 at 13:19 Assessment & Plan 61-year-old lady was most medical history of hypertension, hypo-thyroidism,GERD , asthma, fibromyalgia and recently his diverticulitis presented to emergency room with progressively worsening abdominal pain of 1 week. # Acute diverticulitis with diverticular abscess,poa, Failed outpatient treatment,no SIRS -pt is clinically stable, with non-surgical tx, afebrile, leukocytosis continued -Zosyn and Flagyl started in ED, continue Zosyn for now -repeat CT scan shows 2 loculated abscess, discussed with IR, abscess deep in pelvis and multilocated. Difficult for IR drain. Continue IV antibiotics and repeat CT scan in 4-[address] Fierro -will repeat CT tomorrow, appreciate surgical team FU, possible surgery if clinically worse, addressed smoking cessation, probable colonoscopy prior to dc -Serial abdominal exams -Pain control with morphine -Zofran when necessary for nausea -liquid diet started ,advance as tolerated # Hypertension, chronic -Resume HCTZ and lisinopril, BP stable now #Hypothyroidism, chronic -Continue Synthroid #Asthma, chronic - Continue Symbicort #Current smoker -Smokes 1 pack a day -Nicotine patch as needed #History of GERD -PPI #ppx, -lovenox and ppi Full code,verified with patient Disposition: Pending clinical course VTE Prophylaxis: Sub-Q Enoxaparin Resuscitation Status: CPR: Attempt Resuscitation Time spent 35min Jamie Skinner MD Jan 15, 2017 09:57
[2017-01-15 10:10] VITALS: BP 118/84; PULSE 101; RESP 18; O2SAT 98
--- NOTE | 2017-01-15 11:51 | NUR ---
Social Work: Continued Discharge Planning D: EMR reviewed. Pt is on day 4 of hospitalization. Per MD in AM multi-disciplinary rounds, pt will receive CT scan 01/16. Pt may have surgery consult based on CT results. Per MD, pt is likely to discharge in 2-3 days. ABX will be determined based once pt has received CT scan and MD/ID have further assessed pt's needs. SW will continue to follow for ABX needs and to R/O IVABX at discharge. A: Pt who is independent at baseline. P: Per MD, pt is likely to discharge in 2-3 days. ABX will be determined based once pt has received CT scan and MD/ID have further assessed pt's needs. SW will continue to follow for ABX needs and to R/O IVABX at discharge. Pt to transport home with spouse via POV. AUBREY [place]
--- NOTE | 2017-01-15 13:31 | PCM.PNSURG ---
Subjective Visit Information: Reason for Visit Diverticulitis Surgery/Surgery Date Post-Op Day # Date of Admission: Jan 11, 2017 at 14:19 Hospital Day # Subjective: Stable, mild pelvic pain, WBC 12, pending CT tomorrow. Passing gas but no significant BM. Tolerating liquid diet. Objective Vital Sign- Last 8 Hours Date Time Temp Pulse Resp B/P Pulse Ox O2 Delivery O2 Flow Rate FiO2 01/15/17 10:10 37.5 101 18 118/84 98 Room Air 01/15/17 05:31 37.0 99 20 129/84 98 Room Air Intake and Output- Last 8 Hour 01/15/17 Cumulative From/Thru 06:59 01/11/17 11:46 - 01/15/17 05:31 Intake Total 1050 ml 9565 ml Balance 1050 ml 9565 ml Intake Oral 840 ml 5623 ml IV Total 210 ml 3942 ml # Voids 6 46 # Bowel Movements 1 General: Alert, Oriented X3, Cooperative, No Acute Distress Abdomen: Soft, Other (Tender in pelvis to palpation, no rebound/guarding/ distension) Result Diagram: 01/15/17 0640 01/15/17 0640 Assessment & Plan Impression 61yof smoker with complicated diverticulitis and associated pelvic abscesses. Problems: Plan Continue antibiotics as planned. Agree with CT tomorrow. Will determine whether percutaneous drainage is an option based on CT findings. Resuscitation Status: CPR: Attempt Resuscitation Tabatha Fierro MD Jan 15, 2017 13:31
[2017-01-15 14:43] VITALS: BP 113/76; PULSE 95; RESP 17; O2SAT 97
[2017-01-15 18:10] VITALS: BP 115/80; PULSE 98; RESP 18; O2SAT 97
--- NOTE | 2017-01-15 19:05 | NUR ---
GI Pt. had intermittent abdominal pain but had denied analgesic most of the time, stated the pain was not too bad. PRN Zofran was given x1 this shift for nausea. No vomiting. She ambulated in the cano way. Gait was steady. She is independent with activity.
[2017-01-15 20:21] VITALS: BP 122/83; PULSE 98; RESP 22; O2SAT 94
[2017-01-16] VITALS (7 sets, daily range): BP systolic 113–134; BP diastolic 77–96; PULSE 83–103; RESP 16–20; O2SAT 93–99
[2017-01-16] MEDS: Ondansetron 2 mg/mL 2 mL Inj IVPUSH PRN ×5 (00:27→21:05)
[2017-01-16] MEDS: HYDROmorphone 1 mg/mL Inj IVPUSH PRN ×5 (00:32→20:11)
[2017-01-16] MEDS: Piperacillin-Tazo 3.375 Gm Inj 3.375 GM in Dextrose 5% Minibag Plus 50 ML IV SCH ×4 (02:38→21:04)
--- NOTE | 2017-01-16 04:19 | NUR ---
PAIN/NAUSEA Pain managed effectively with q3h 1 mg dilaudid while pt is awake. Zofran given PRN, two doses this shift, nausea managed effectively. Pt received shower this noc and reported "feel a lot better now." NPO at midnight for early am procedure, pt aware of plan. Continuing care.
[2017-01-16] MEDS: Pantoprazole 40 mg ER24 Tablet PO SCH (06:09)
[2017-01-16] MEDS: ESTRADIOL VAGINAL TOPICAL SCH ×2 (07:48→20:30)
[2017-01-16] MEDS: Fluticasone-Salmeterol 100-50 Inhaler INHALATION SCH ×2 (07:56→20:16)
[2017-01-16 08:05] LABS: BASOPHILS % (AUTO) 0.3 % (0-3); EOSINOPHILS % (AUTO) 2.8 % (0-5); MONOCYTES % (AUTO) 10.1 % (4-12); Mean Corpuscular Hemoglobin 30.1 pg (27.0-35.0); Mean Corpuscular Volume 90.2 fL (81-100); NEUTROPHILS % (AUTO) 78.5 % (40-74); Platelet Count 496 bil/L (150-400)
--- NOTE | 2017-01-16 09:23 | PCM.PNMED ---
Subjective Date of Service Jan 16, 2017 Subjective pt is doing well, pain is decreasing, good appetite, awaits CT abdomen this AM to determine drainage or not Exam Vital Signs Vital Sign - Last Date Time Temp Pulse Resp B/P Pulse Ox O2 Delivery O2 Flow Rate FiO2 01/16/17 06:14 97 16 113/77 93 Room Air 01/15/17 20:21 37.1 Intake and Output 01/15/17 01/15/17 01/16/17 Cumulative From/Thru 15:00 23:00 07:00 01/11/17 11:46 - 01/16/17 06:14 Intake Total 1266 ml 485 ml 71631 ml Balance 1266 ml 485 ml 96267 ml Intake Oral 1150 ml 300 ml 7073 ml IV Total 116 ml 185 ml 4243 ml # Voids 6 3 55 # Bowel Movements 1 2 Exam NAD, comfortably laying down on the bed no JVD, MMM, no LAD RRR, nl s1, s2 no mrg CTAB, no w,c S,mild td on LLQ, ND,hypoactiveBS+ warm, no edema, pulses 2/2 IVs and Medications Medications Reviewed: Medications were reviewed in detail Lab and Diagnostics Result Diagram: 01/16/17 0735 01/16/17 0735 X-Rays, CTs and MRIs PROCEDURE: CT ABDOMEN AND PELVIS WITH CONTRAST ([id number]) INDICATIONS: ABDOMINAL PAIN, R/O DIVERTICULITIS IMPRESSION: 1. Rectosigmoid diverticulitis. There are at least phlegmonous soft tissue changes within the pelvis with a probable developing small abscess. No free air is seen. Please note that percutaneous drainage would be difficult given overlying bowel loops, at this time. 2. Moderate wall thickening of at least a single small bowel loop extending into the right hemipelvis is felt to be reactive. No bowel obstruction. 3. Probable constipation. 4. Probable moderate-sized right hepatic hemangioma. Dedicated liver MRI or CT with contrast is recommended. 5. Non-masslike enlargement of the left adrenal gland may be related to hyperplasia. 6. Aortic and iliac artery atherosclerosis. Note: Acute findings were discussed with Dr. Rom Avila at 1146 hours (PST) on 01/08/17. Dictated by: Ramiro Mariano M.D. on 01/08/2017 at 10:38 PROCEDURE: CT ABDOMEN AND PELVIS WITH CONTRAST ([id number]) INDICATIONS: refractory diverticulitis r/o abscess TECHNIQUE: After the administration of oral and intravenous contrast, 5 mm thick sections acquired from the diaphragms to the symphysis. 5 mm thick coronal and sagittal reformats were performed. For radiation dose reduction, the following was used : automated exposure control, adjustment of mA and/or kV according to patient size. COMPARISON: [facility], CT, CT ABD PELVIS W CON, 01/08/2017, 10:48. IMPRESSION: 1. Acute diverticulitis. When the patient's acute symptoms have resolved, colonoscopy would be helpful to know exclude the possibility of an underlying lesion. 2. 2 loculated fluid collections within the pelvis are compatible with abscesses. Both of these have increased in size since the prior study. These raise the suspicion for a contained perforated diverticulum. No free air is evident. 3. No bowel obstruction. 4. Probable right hepatic hemangioma appears unchanged. 5. Right basilar pulmonary nodule. Six-month followup CT of the chest is recommended. Dictated by: Ramiro Mariano M.D. on 01/11/2017 at 13:19 Assessment & Plan 61-year-old lady was most medical history of hypertension, hypo-thyroidism,GERD , asthma, fibromyalgia and recently his diverticulitis presented to emergency room with progressively worsening abdominal pain of 1 week. # Acute diverticulitis with diverticular abscess,poa, Failed outpatient treatment,no SIRS -pt is clinically stable, with non-surgical tx, afebrile, leukocytosis continued -Zosyn and Flagyl started in ED, continue Zosyn for now -repeat CT scan shows 2 loculated abscess, discussed with IR, abscess deep in pelvis and multilocated. Difficult for IR drain. Continue IV antibiotics -repeat CT today to determine necessity or surgery -Serial abdominal exams -Pain control with morphine -Zofran when necessary for nausea -liquid diet started ,advance as tolerated # Hypertension, chronic -Resume HCTZ and lisinopril, BP stable now #Hypothyroidism, chronic -Continue Synthroid #Asthma, chronic - Continue Symbicort #Current smoker -Smokes 1 pack a day -Nicotine patch as needed #History of GERD -PPI #ppx, -lovenox and ppi Full code,verified with patient Disposition: Pending clinical course VTE Mechanical Devices: Intermittant Pneumatic CD Resuscitation Status: CPR: Attempt Resuscitation Time spent 35min Jamie Skinner MD Jan 16, 2017 09:23
--- NOTE | 2017-01-16 10:01 | DRSVH ---
PROCEDURE: CT ABDOMEN AND PELVIS WITH CONTRAST (PNL-7102) INDICATIONS: follow up of abscess TECHNIQUE: After the administration of oral and intravenous contrast, 5 mm thick sections acquired from the diap hragms to the symphysis. 5 mm thick coronal and sagittal reformats were performed. For radiation do se reduction, the following was used: automated exposure control, adjustment of mA and/or kV accordi ng to patient size. COMPARISON: [facility], CT, CT ABD PELVIS W CON, 01/11/2017, 14:00. [facility], CT, CT ABD PELVIS W CON, 01/08/2017, 10:48. FINDINGS: Image quality: Excellent. ABDOMEN: Lung bases: No change in 6 mm diameter subpleural nodule within the right lung base. Heart size is no rmal. Solid organs: Liver and spleen are normal in size. There is a partially exophytic 40 mm diameter low -density focus within the right hepatic lobe posteriorly, which demonstrates peripheral nodular enhan cement, consistent with a hemangioma, as before. Small sub-capsular cyst within the lateral segment l eft hepatic lobe anteriorly is unchanged. Gallbladder is within normal limits. Biliary system is non -dilated. Pancreas enhances normally. No adrenal nodules. Kidneys are normal in size and enhanceme nt, without hydronephrosis. Peritoneum and bowel: Stomach, small bowel, and colon loops are normal in caliber.. Diverticulosis of the descending and sigmoid colon. Moderate sigmoid thickening. No free fluid or air. As before, t here is a tubular shaped multiloculated fluid collection within the pelvis, with peripheral enhanceme nt, consistent with an abscess. The largest loculation is within the right inferior aspect of the pel vis, involving the right adnexa, measuring 73 mm, which is unchanged. The 2nd loculation is more supe riorly within the pelvis, measuring roughly 30 mm, which is also unchanged. Nodes and vessels: No retroperitoneal or mesenteric adenopathy. Aorta and inferior vena cava are no rmal in caliber. Miscellaneous: No ventral hernias. PELVIS: Genitourinary: Bladder wall thickness is normal. Miscellaneous: No inguinal hernias or adenopathy. Bones: No suspicious bony lesions. No vertebral body compression fractures. IMPRESSION: 1. No significant change in multiloculated pelvic abscess. 2. No change in right hepatic lobe hemangioma. 3. No change in right lung base nodule. Dictated by: Nola Mercado M.D. on 01/16/2017 at 9:51 Approved by: Nola Mercado M.D. on 01/16/2017 at 9:59
--- NOTE | 2017-01-16 12:35 | PCM.PNSURG ---
Subjective Visit Information: Reason for Visit Diverticulitis Surgery/Surgery Date Post-Op Day # Date of Admission: Jan 11, 2017 at 14:19 Hospital Day # Subjective: This is a 61-year-old woman with pelvic abscesses from diverticulitis. She underwent CT scan today shows persistent loculated abscesses in the pelvis, larger than before. I discussed this case with the interventional radiologist educational aid, who agrees that they could be aspirated/drained. Vitals remained stable and her white blood cell count is 11, similar to the time of admission. Objective Vital Sign- Last 8 Hours Date Time Temp Pulse Resp B/P Pulse Ox O2 Delivery O2 Flow Rate FiO2 01/16/17 06:14 97 16 113/77 93 Room Air Intake and Output- Last 8 Hour 01/16/17 Cumulative From/Thru 07:00 01/11/17 11:46 - 01/16/17 06:14 Intake Total 485 ml 75751 ml Balance 485 ml 02697 ml Intake Oral 300 ml 7073 ml IV Total 185 ml 4243 ml # Voids 3 55 # Bowel Movements 2 Abdomen: Benign, Soft, Other (tender in the left upper quadrant, left lower quadrant and right lower quadrant of the abdomen. No rebound or guarding.) Result Diagram: 01/16/17 0735 01/16/17 0735 Assessment & Plan Impression 61-year-old woman with complicated diverticulitis and pelvic abscesses. She has been stable, and her abscesses have increased to a size test that they may be drained percutaneously. Problems: Plan I recommend percutaneous drainage/aspiration of pelvic abscess, as noted above and as discussed with Dr. Mercado. She is nothing by mouth at this time and had oral contrast this morning. I have recommended that speak performed later today ; I have been told that it will either be done later today or tomorrow. If she can be stabilized after aspiration, I would recommend discharge from the hospital with antibiotics for several weeks and follow-up in my clinic 1-2 weeks after discharge. I have strongly recommended the patient that she do not resume smoking as this increases the perioperative morbidity and I do recommend sigmoid colectomy after 6 weeks if she can be stabilized. We also discussed the possibility of ostomy creation at the time of sigmoid colectomy. I consider the possibility of the need for laparoscopic drainage if percutaneous drainage is unsuccessful. Given that her current abscesses can be accessed percutaneously, this minimally invasive approach in a stable patient will be attempted first. She understands that failure is an option. Her was present for all of this discussion. One hour was spent on this patient visit today, greater than 50% in counseling and/or coordination of care. Resuscitation Status: CPR: Attempt Resuscitation Tabatha Fierro MD Jan 16, 2017 12:35
[2017-01-16 13:45] LABS: INR 1.06 ratio
[2017-01-16] MEDS ORDERED: fentaNYL-PF 50 mCg/mL 2 mL Inj ONE (14:55)
--- NOTE | 2017-01-16 16:05 | NUR ---
pain, nausea, CT scan, procedure pt. c/o 8/10 abd pain; prn dilaudid given with relief; pt. states /10 is tolerable. C/o nausea; prn zofran given with relief. CT scan done this am; Dr. Fierro notified. Pt. transferred at 1455 to radiology for abscess draining with conscious sedation; report called to Shraddha MALDONADO in [place]
--- NOTE | 2017-01-16 16:38 | DRSVH ---
PROCEDURE: 1. CT guided aspiration of pelvic abscess. 2. Conscious sedation x45 minutes. INDICATIONS: pelvic abscess. COMPARISON: [facility], CT, CT ABD PELVIS W CON, 01/16/2017, 9:00. TECHNIQUE: Informed, written consent from the patient was obtained prior to the procedure. Patient wa s brought to the angiography suite, and conscious sedation was administered intravenously by longterm staff, while continuous cardiorespiratory monitoring was performed. Maximal sterile barrier t echnique, hand hygiene, and skin preparation was followed. Production Supervisor Off Shift imaging of the pelvic abscess was pe rformed with overlying localization grid. Lidocaine was administered for anesthesia. Under CT guidanc e, a 20 gauge Chiba needle was advanced into the pelvic fluid collection, and only a small amount cou ld be aspirated, a sample of which was sent to laboratory for analysis. FINDINGS: Multiloculated pelvic abscess is present, as before. IMPRESSION: The contents of the pelvic abscess are viscous and multiloculated, and consequently only a small amount could be aspirated. It is possible that the contents will liquefy over time, facilitat ing future aspiration/drainage. Dictated by: Nola Mercado M.D. on 01/16/2017 at 16:33 Approved by: Nola Mercado M.D. on 01/16/2017 at 16:37
--- NOTE | 2017-01-16 16:48 | NUR ---
pT TX BACK TO ROOM IN STABLE CONDITION. rEPORT GIVEN TO KALANI MAZARIEGOS r.n. SITE REMAINS DRY AND INTACT.
[2017-01-17] VITALS (7 sets, daily range): BP systolic 103–131; BP diastolic 67–84; PULSE 94–104; RESP 14–20; O2SAT 93–98
[2017-01-17] MEDS: HYDROmorphone 1 mg/mL Inj IVPUSH PRN ×5 (01:55→21:29)
[2017-01-17] MEDS: Piperacillin-Tazo 3.375 Gm Inj 3.375 GM in Dextrose 5% Minibag Plus 50 ML IV SCH ×4 (02:34→21:26)
--- NOTE | 2017-01-17 04:39 | NUR ---
Pain/Nausea pt C/O 8-04/14 abdominal pain. administered IVP Dilaudid which is effective per pt reported tolerable on rate of 11/12. reported nausea x1 after dinner. administered IVP Zofran which was effective. pt independent in room with steady gait. will continue to monitor and deliver care.
[2017-01-17] MEDS: Pantoprazole 40 mg ER24 Tablet PO SCH (05:59)
[2017-01-17] MEDS: ESTRADIOL VAGINAL TOPICAL SCH ×2 (07:39→20:30)
[2017-01-17] MEDS: Fluticasone-Salmeterol 100-50 Inhaler INHALATION SCH ×2 (07:42→21:27)
[2017-01-17 08:28] LABS: BASOPHILS % (AUTO) 0.2 % (0-3); EOSINOPHILS % (AUTO) 1.4 % (0-5); MONOCYTES % (AUTO) 10.1 % (4-12); Mean Corpuscular Hemoglobin 29.6 pg (27.0-35.0); Mean Corpuscular Volume 89.6 fL (81-100); NEUTROPHILS % (AUTO) 79.3 % (40-74); Platelet Count 514 bil/L (150-400)
--- NOTE | 2017-01-17 09:29 | PCM.PNMED ---
Subjective Date of Service Jan 17, 2017 Subjective pt tolerated percutaneus well, however given loculated and vicious fluid, only small amount of fluid obtained per IR. awaits culture results, pt symptoms were better, wants to advance her diet, Exam Vital Signs Vital Sign - Last Date Time Temp Pulse Resp B/P Pulse Ox O2 Delivery O2 Flow Rate FiO2 01/17/17 06:08 36.7 95 18 117/84 94 Room Air Intake and Output 01/16/17 01/16/17 01/17/17 Cumulative From/Thru 15:00 23:00 07:00 01/11/17 11:46 - 01/17/17 06:08 Intake Total 356 ml 374 ml 47174 ml Balance 356 ml 374 ml 46691 ml Intake Oral 240 ml 236 ml 7549 ml IV Total 116 ml 138 ml 4497 ml # Voids 5 6 66 # Bowel Movements 0 2 Exam NAD, comfortably laying down on the bed no JVD, MMM, no LAD RRR, nl s1, s2 no mrg CTAB, no w,c S,mild td on LLQ, ND,hypoactiveBS+ warm, no edema, pulses 2/2 IVs and Medications Medications Reviewed: Medications were reviewed in detail Lab and Diagnostics Result Diagram: 01/17/17 0755 01/16/17 0735 X-Rays, CTs and MRIs PROCEDURE: CT ABDOMEN AND PELVIS WITH CONTRAST ([id number]) INDICATIONS: ABDOMINAL PAIN, R/O DIVERTICULITIS IMPRESSION: 1. Rectosigmoid diverticulitis. There are at least phlegmonous soft tissue changes within the pelvis with a probable developing small abscess. No free air is seen. Please note that percutaneous drainage would be difficult given overlying bowel loops, at this time. 2. Moderate wall thickening of at least a single small bowel loop extending into the right hemipelvis is felt to be reactive. No bowel obstruction. 3. Probable constipation. 4. Probable moderate-sized right hepatic hemangioma. Dedicated liver MRI or CT with contrast is recommended. 5. Non-masslike enlargement of the left adrenal gland may be related to hyperplasia. 6. Aortic and iliac artery atherosclerosis. Note: Acute findings were discussed with Dr. Rom Avila at 1146 hours (PST) on 01/08/17. Dictated by: Ramiro aMriano M.D. on 01/08/2017 at 10:38 PROCEDURE: CT ABDOMEN AND PELVIS WITH CONTRAST ([id number]) INDICATIONS: refractory diverticulitis r/o abscess TECHNIQUE: After the administration of oral and intravenous contrast, 5 mm thick sections acquired from the diaphragms to the symphysis. 5 mm thick coronal and sagittal reformats were performed. For radiation dose reduction, the following was used : automated exposure control, adjustment of mA and/or kV according to patient size. COMPARISON: [facility], CT, CT ABD PELVIS W CON, 01/08/2017, 10:48. IMPRESSION: 1. Acute diverticulitis. When the patient's acute symptoms have resolved, colonoscopy would be helpful to know exclude the possibility of an underlying lesion. 2. 2 loculated fluid collections within the pelvis are compatible with abscesses. Both of these have increased in size since the prior study. These raise the suspicion for a contained perforated diverticulum. No free air is evident. 3. No bowel obstruction. 4. Probable right hepatic hemangioma appears unchanged. 5. Right basilar pulmonary nodule. Six-month followup CT of the chest is recommended. Dictated by: Ramiro Mariano M.D. on 01/11/2017 at 13:19 Assessment & Plan 61-year-old lady was most medical history of hypertension, hypo-thyroidism,GERD , asthma, fibromyalgia and recently his diverticulitis presented to emergency room with progressively worsening abdominal pain of 1 week. # Acute diverticulitis with diverticular abscess,poa, Failed outpatient treatment,no SIRS. Surgery is on board, CT abd 01/16 showed unchanged abscess, pt underwent percutaneous drainage per IR on 01/16, drained small viscous fluid multiloculated in pelvic abscess. -pt is clinically stable, with non-surgical tx, afebrile, leukocytosis continued -Zosyn and Flagyl started in ED, continue Zosyn for now -Serial abdominal exams -Zofran when necessary for nausea -liquid diet, will advance diet, -appreciate follow up, no further surgical intervention planed at the moment -appreciate ID input regarding duration and regimen of abx, awaits abscess culture. # Hypertension, chronic -Resume HCTZ and lisinopril, BP stable now #Hypothyroidism, chronic -Continue Synthroid #Asthma, chronic - Continue Symbicort #Current smoker -Smokes 1 pack a day -Nicotine patch as needed -addressed smoking cessation extensively #History of GERD -PPI #ppx, -lovenox and ppi Full code,verified with patient Disposition: likely 1-2days, home addendum>as per , pt likely needs sigmoidectomy on Saturday given persistent abscess, recommended TPN, not advancing diet, keep full liquid, therefore ordered PICC, TPN per phamarcy, will wait and see through the weekend with medical tx. VTE Mechanical Devices: Intermittant Pneumatic CD Resuscitation Status: CPR: Attempt Resuscitation Time spent 35min Jamie Skinner MD Jan 17, 2017 09:29
[2017-01-17] MEDS: Ondansetron 2 mg/mL 2 mL Inj IVPUSH PRN ×2 (11:14→17:27)
[2017-01-17] MEDS ORDERED: Sodium Chloride LOK Flush 10 mL Syringe IVFLUSH PRN ×2 (11:30)
[2017-01-17] MEDS ORDERED: TPN Per Pharmacist XX ONE (11:30)
--- NOTE | 2017-01-17 12:05 | CONS ---
[address] [address] CONSULTATION REPORT PATIENT: KG FLORES : 1955 MR#: [id number] ADMIT: 01/11/2017 JOB ID: [id number] DATE OF SERVICE: 01/17/[address] Skinner for this consult. REASON FOR CONSULTATION: Diverticular abscess. HISTORY OF PRESENT ILLNESS: The patient is a 61-year-old woman who was admitted to this facility back in 6 and 1/2 days ago now with about a 5 day history of abdominal pain. She had initially sought evaluation at an urgent care and was given Cipro on the thought that she might have a UTI for her left lower quadrant pain, fever and malaise. She then saw her primary care doctor, who wisely added Flagyl thinking this was actually diverticular pain and for a few days she took Cipro and Flagyl but worsened. On January 11, the patient was admitted to this facility with a continued left lower quadrant abdominal pain, fever, intermittent chills, malaise, headache and severe nausea. At that time, a CT scan showed a sigmoid diverticulitis with developing abscess or abscesses. She was started on appropriate therapy after it was discovered she had a mild leukocytosis and the probable diverticular abscesses. Dr. Fierro of surgery was consulted and recommended several days of IV antibiotics with perhaps an attempt to place a drain in the hopes that definitive surgery could be put off for a few weeks to allow the patient to quit smoking and get healthier before the definitive sigmoid colon surgery. What has transpired over the past five days, is that there has been some improvement in that her chills and fever seemed to resolve and her nausea is somewhat better, but her left lower quadrant pain continues. A repeat CT scan does not show any progress and we just spoke to Dr. Fierro in the hallway and she is currently planning to take the patient to the operating room for definitive surgery on January 21, unless there is a dramatic improvement in the patient's situation between now and then. As noted, the patient today has no fevers no chills. No headache. She has no acute pulmonary symptoms and reports her nausea is better though her left lower quadrant pain continues. She has no genitourinary symptoms. PAST MEDICAL HISTORY: 1. Diverticulitis which was diagnosed during this admission. 2. Hypertension. 3. Hypothyroidism. 4. GERD. 5. Reactive airway disease. 6. History of partial retinal artery occlusion in 2016, apparently without any explanation according to the patient. 7. Status post appendectomy, hysterectomy, tonsillectomy, left hip replacement in 2012 and left knee arthroscopy in 2014. SOCIAL HISTORY: The patient works for the [employer]. She is a pack-a-day smoker. Does not drink alcohol or use illicit drugs. She lives with her . FAMILY HISTORY: Negative for TB in her first and second-degree relatives. No significant headache. REVIEW OF SYSTEMS: The patient has no significant headache and she has not been confused. No acute visual change, although she has fixed partial field deficit on the left side because of the retina artery occlusion, which occurred about a year and a half ago. Oral cavity without complaints. No sore throat. No stiff neck. No cough, shortness of breath or chest pain. She did have very pronounced nausea earlier in her hospital stay and that has resolved. No vomiting. She had diarrhea before she was started on antibiotics by her outpatient physicians. That diarrhea has recurred a little bit over the past 24 hours or so. No urgency, frequency, dysuria. No swelling of any joints. No focal neurologic complaints except for partial visual field cut due to that retinal artery occlusion. Remainder of the review of systems negative. PHYSICAL EXAMINATION: Reveals an afebrile woman. Temp 36.7, pulse 94, respiratory rate 16, blood pressure 103/67. She is saturating well on room air. Examination of the mental status reveals it to be completely clear. Head without trauma. Eyes without conjunctival, hemorrhage or abnormality. Nose is normal. Oral cavity with a coated tongue but no thrush. No hairy leukoplakia. Neck completely supple. No adenopathy. No JVD. Lungs are clear. Cardiac tones regular rate and rhythm. Abdomen has good bowel tones. It is quite tender in the left lower quadrant extending over to about the midline up to the umbilicus. No abdominal masses are palpated though the patient does have a couple tender indurated areas due to apparently Lovenox or heparin injections. No hepatosplenomegaly or ascites is noted. She does not have a Chandra catheter. She is not having inguinal adenopathy. There is no evidence of synovitis. There is no skin rash. Neurologically: She is intact. LABORATORIES: Include white count which has really not changed since admission for the past week. Her white count has been between 10 and 13,000. The diff is relatively normal with a mild left shift, about 80% segs. Platelets 514,000. Creatinine 0.63. Urinalysis without white cells. Micro studies include negative stool PCR cultures, PCR panel and aspirate from the abdomen yesterday from the left lower quadrant, which yielded moderate polys and a few gram-positive cocci. Cultures are pending. IMAGING: Includes two CT scans which are reviewed. They are very similar. They show multiloculated pelvic abscess. There is also moderate sigmoid colon thickening and diverticulosis. The appearance of this pelvic abscess has not changed at all during the five days of aggressive Zosyn antibiotic therapy she received between the January 11 and January 16. Also noted was a right hepatic hemangioma and a right lung base nodule. IMPRESSION: This is a patient with a fairly complex past medical history who presents with a classic presentation of diverticulitis and pelvic abscess. She received several days of Cipro and Flagyl as an outpatient which likely constitutes a reasonable therapeutic trial, and then she has had five days or so of Zosyn here in the hospital, and she has not improved by serial CT scans. She has noticed some improvement in that her fevers seemed to have faded and her nausea is diminished however, but she still has the very pronounced left lower quadrant pain and the CT findings and white blood count have not changed even a bit. RECOMMENDATIONS: 1. I agree with continuing with Zosyn. 2. We await the culture from the aspirate done yesterday. 3. This case discussed with Dr. Skinner and Dr. Fierro and we think we are all in agreement that unless there is dramatic improvement between here and Saturday, it makes good sense to perform an intraoperative drainage of abscess and appropriate bowel surgery is indicated per Dr. Fierro.
--- NOTE | 2017-01-17 14:05 | NUR ---
Social Work: Continued Discharge Planning D: EMR reviewed. Pt is on day 6 of hospitalization. As per Surgery, pt likely needs sigmoidectomy on Saturday given persistent abscess, recommended TPN, not advancing diet, keep full liquid, therefore ordered PICC, TPN per pharmacy, will wait and see through the weekend with medical tx. ABX will be determined once MD/ID/Surgery have further assessed pt's needs. SW will continue to follow for ABX needs and to R/O IVABX at discharge. A: Pt who is independent at baseline. P: Per MD, pt to receive sigmoidectomy on Saturday given persistent abscess. ABX will be determined once MD/ID have further assessed pt's needs. SW will continue to follow for ABX needs and to R/O IVABX at discharge. Pt to transport home with spouse via POV. Paige Fernandez, SLOT MACHINE MECHANIC
--- NOTE | 2017-01-17 16:14 | PROG NOTE ---
[address] [address] PROGRESS NOTE PATIENT: KG FLORES : 1955 MR#: [id number] ADMIT: 01/11/2017 JOB ID: [id number] DATE: 01/17/2017 SUBJECTIVE: This is a 61-year-old woman who presented to the hospital six days ago with complicated diverticulitis and loculated abscesses in the pelvis. Initially they were not amenable to drainage; however, the abscesses have increased somewhat in size and yesterday one of them was aspirated by Interventional Radiology. Clinically, she is the same after drainage, with a white blood cell count of 12.2 which has been stable throughout the stay, normal vital signs, and ongoing low pelvic and abdominal pain. Cultures were taken from the abscess result yesterday and show rare gram-positive cocci and moderate polys, final culture pending. OBJECTIVE: Vital signs within normal limits. General: Awake and alert, no acute distress. Abdomen: Soft, diffusely tender in the lower right and lower left quadrants, and in the pelvis, to moderate palpation. There is no rebound or guarding. IMAGING: Abdominal CT scan and a CT scan performed during aspiration of pelvic abscesses are reviewed. A small amount of fluid was aspirated from the pelvic abscess and was sent for culture. The radiologist reports that the contents of the pelvic abscess are viscous and multiloculated, and consequently only a small amount could be aspirated. It is possible, though, that the contents will liquify over time, facilitating future aspiration and drainage. ASSESSMENT: A 61-year-old woman with complicated diverticulitis with pelvic abscesses, refractory to IV antibiotic therapy, bowel rest, and percutaneous aspiration. She has small, multiloculated, multifocal abscesses which have grown somewhat in size but are not altogether drainable percutaneously, although an excellent attempt was made by Dr. Mercado and a small fluid was removed. The overall clinical picture is discussed in detail with the patient. Ultimately, sigmoid colectomy is recommended given the severity of this episode of diverticulitis. As we had discussed previously on this admission, ideally a six week trial of antibiotic therapy to improve the inflammation in her pelvis would be ideal before proceeding with sigmoid colectomy. However, her overall condition is not improving despite current efforts. We discussed the possibility of laparoscopic drainage of her abscesses. The overall social situation for the patient was also discussed including the possibility of failure of laparoscopic drainage, which would mean a more prolonged hospitalization and the need for eventual colectomy on this admission. We discussed the possibility of success of laparoscopic drainage, which would probably mean that she would leave the hospital with drains in place and may be able to postpone colectomy to a later date and ultimately potentially avoid the need for an ostomy. We discussed sigmoid colectomy with an end colostomy and also with a diverting loop ileostomy. Given that she has a low albumin, has been recently smoking, and has active inflammation of the pelvis, I recommend that if sigmoid colectomy be performed on this admission, that diversion be performed, which she understands. Based on all of the discussion points above, the patient and I agreed together to schedule a laparoscopic sigmoid colectomy with colostomy creation, either diverting loop ileostomy or an end colostomy, which is scheduled for this coming January 21. We also agree that if she were to improve clinically over the weekend while on the new antibiotic regimen under the auspices of Dr. Kebede, and after the aspiration that was performed yesterday, we may cancel surgery and defer it to a later date. She agrees and is amenable to this plan. For this reason, I have performed the followin. I ordered a hemoglobin A1c level. 2. Impact beverage will be given to facilitate postoperative healing in the coming days prior to surgery. 3. Dr. Naif Espinoza was contacted regarding the placement of ureteral stents at the time of surgery, and he is amenable to this. 4. A mechanical bowel prep was ordered for Saturday of this week, January 20. 5. Antibiotic bowel prep was ordered for January 20. 6. I have discussed with the mat machine operator of the possibility of a full liquid diet versus TPN in order to maximize nutrition leading up to the time of surgery while minimizing the need for oral intake. The mattress finisher have agreed to ensure that the patient receives 2000 calories per day, whether that be via liquids or TPN. They have also agreed that this will be documented in the chart over the weekend. 7. Cesar Martinez was contacted regarding stoma site marking. 8. Consent form was signed I will be out of town over the weekend and my general surgical partners will be covering. As noted above, if the patient improves clinically over the weekend, I would agree with discharge if the primary team and my surgical partners agree that she is ready for discharge. If not, we will plan on proceeding with surgery on Saturday. One hour was spent on this patient today, greater than 50% in counseling and/or coordination of care.
--- NOTE | 2017-01-17 16:24 | NUR ---
NUTRITION FOLLOW-UP: ASSESS: 61 YO F admit with complicated diverticulitis resulting in pelvic abscess. Pt will likely require sigmoid colectomy on Saturday per surgery. TPN is being considered if pt is unable to meet 100% of est. needs through full liquid diet and supplements to increase pt nutritional status prior to surgery on Saturday. would like calorie count ordered to better assess pt po intake to ensure that est. needs are being met. RD met with pt to discuss preferences for full liquid diet and to stress the importance of good po intake in order to hopefully avoid having to start TPN. PMHX: Diverticulitis, HTN, hypothyroid, GERD, Colon Polyps, fibromyalgia DIET: Full Liquid. PO 90-100% all trays on 01/15. LABS: Reviewed. Glu 115, Alb 3.1 MEDS: Reviewed GI: BM 01/15 x 1. WEIGHT: 104.55 kg BMI: 37.2 EST.NEEDS: OBESE Kcal: 9557-3623 (20-22 kcals/kg BW) Protein: 70-90 g (1.2-1.5 g/kg IBW) NUTRITION DIAGNOSIS: (1) Altered GI tract related to alteration in GI tract function/structure as evidenced by complicated diverticulitis/pelvic abscess--PERSISTS. INTERVENTION: (1) Food preferences ordered for pt. If pt eats 65-75% of meal and snack, pt will be meeting 100% of est. needs. Current menu as follows ordered for pt: Breakfast: Cream of Rice, Yogurt, Milk, Apple juice, Gelatein plus (150 kcals, 20 g pro), Impact adv Recovery (200 kcal, 18 g pro) Snack: Ensure (350 kcals, 20 g protein) Lunch: Cream of chicken, Pudding, Milk, Cranberry juice, Magic cup (290 kcals, 9 g pro), Impact adv Recovery (200 kcal, 18 g pro) Snack: Ensure (350 kcals, 20 g protein) Dinner: Thinned mashed potatoes, Yogurt, Milk, Apple juice, Magic cup (290 kcals, 9 g pro), Impact adv Recovery (200 kcal, 18 g pro) Snack: Ensure (350 kcals, 20 g protein) Supplements (Impact adv. recovery, ensure, magic cup, gelatein plus) will provide 2230 kcals and 132 g protein per day) Other food items provide approx. 1350 kcals and 49 g protein per day. MONITOR/EVAL: PO intake, labs, calorie count, nutritional status. Follow per high nutritional risk guidelines. Addendum: 01/17/17 at [address] If TPN needs to be started, recommend starting TPN at 150 g dextrose, 50 g protein and 25 g lipids to provide 960 kcals and 50 gram protein per day to meet approx 50% of pt est. needs. However, this recommendation may need to be adjusted pending pt current po intake when/if TPN is initiated.
[2017-01-18] MEDS: Piperacillin-Tazo 3.375 Gm Inj 3.375 GM in Dextrose 5% Minibag Plus 50 ML IV SCH ×4 (02:34→19:48)
[2017-01-18] MEDS: HYDROmorphone 1 mg/mL Inj IVPUSH PRN ×4 (04:14→19:48)
--- NOTE | 2017-01-18 05:22 | NUR ---
Pain/Oxygen pt C/O 7-03/14 abdominal pain x2. administered IVP Dilaudid which is effective per pt reported tolerable on rate of 11/12. pt desat (88-91) during asleep. administered 1L O2 via NC with sat >95%. pt on CPOX due to high SHERON score. pt denied Nausea during this shift. pt independent in room with steady gait. will continue to monitor and deliver care.
[2017-01-18 05:45] VITALS: BP 147/102; PULSE 102; RESP 16; O2SAT 97
[2017-01-18] MEDS: Pantoprazole 40 mg ER24 Tablet PO SCH (05:48)
[2017-01-18 06:02] LABS: BASOPHILS % (AUTO) 0.3 % (0-3); EOSINOPHILS % (AUTO) 1.8 % (0-5); MONOCYTES % (AUTO) 9.3 % (4-12); Mean Corpuscular Hemoglobin 29.9 pg (27.0-35.0); Mean Corpuscular Volume 90.2 fL (81-100); Platelet Count 498 bil/L (150-400)
[2017-01-18 06:33] VITALS: BP 112/68; PULSE 90
[2017-01-18] MEDS: ESTRADIOL VAGINAL TOPICAL SCH ×2 (08:30→20:07)
--- NOTE | 2017-01-18 08:48 | PCM.PNSURG ---
Subjective Date of Service: Jan 18, 2017 Date of Service: Jan 18, 2017 Visit Information: Reason for Visit Diverticulitis Surgery/Surgery Date Post-Op Day # Date of Admission: Jan 11, 2017 at 14:19 Hospital Day # 8 Subjective: Patient seen today at bedside. Sitting comfortably at side of bed. Notes stable R>L lower quadrant pain. Overall feels better than admit but no subjective change recently. Some occasional nausea but no emesis. BM reported normal. Tolerating oral. No longer smoking. Postop General: No Shortness of Breath, No Chest Pain Gastrointestinal: Tolerating Oral Feedings, Normal Bowel Movement, Complains of Nausea (occasional) Pain Management: PO (tylenol), IV Push (dilaudid) Postop Activity: Ambulating Independently Objective Vital Sign- Last 8 Hours Date Time Temp Pulse Resp B/P Pulse Ox O2 Delivery O2 Flow Rate FiO2 01/18/17 06:33 90 112/68 01/18/17 05:45 36.8 102 16 147/102 97 Room Air Intake and Output- Last 8 Hour 01/18/17 Cumulative From/Thru 07:00 01/11/17 11:46 - 01/18/17 06:36 Intake Total 644 ml 93930 ml Output Total 6 ml 6 ml Balance 638 ml 08373 ml Intake Oral 400 ml 8949 ml IV Total 244 ml 4871 ml Output Urine Total 6 ml 6 ml # Voids 70 # Bowel Movements 1 5 General: Alert, Cooperative, No Acute Distress Lungs: Clear to Auscultation Heart: Regular Rate/Rhythm Abdomen: Soft, Non-distended, Normoactive bowel tones, Other (tender lower abdomen, r>l lower quadrant with some voluntary guarding) Result Diagram: 01/18/17 0545 01/16/17 0735 Diagnostics: Pelvic abscess: Moderate polys with rare gram pos cocci final results pending. Assessment & Plan Impression Complicated diverticulitis with pelvic abscesses, refractory to IV antibiotic therapy, bowel rest, and percutaneous aspiration. -Patient condition stable and not improved. Trajectory continues to lead toward laparoscopic sigmoid colectomy with colostomy creation, either diverting loop ileostomy or an end colostomy on Saturday. Problems: (1) Acute diverticulitis Status: Acute ICD Code: K57.92 (2) Intestinal diverticular abscess Status: Acute ICD Code: K63.0 (3) Prediabetes Status: Acute ICD Code: R73.03 Plan - Continue nutrition support--> current pre-diabetes state per HgbA1c - await pelvic abscess final culture report; meanwhile continue Zosyn - CBC in am - bowel prep Saturday Resuscitation Status: CPR: Attempt Resuscitation Mahad Harmon PA-C Jan 18, 2017 08:48
[2017-01-18 09:15] VITALS: BP 132/81; PULSE 90; O2SAT 95
[2017-01-18] MEDS: Fluticasone-Salmeterol 100-50 Inhaler INHALATION SCH ×2 (09:27→19:48)
[2017-01-18] MEDS: Ondansetron 2 mg/mL 2 mL Inj IVPUSH PRN ×2 (09:28→19:48)
--- NOTE | 2017-01-18 11:28 | PROG NOTE ---
[address] [address] PROGRESS NOTE PATIENT: KG FLORES : 1955 MR#: [id number] ADMIT: 01/11/2017 JOB ID: [id number] DATE: 01/18/2017 REASON FOR FOLLOWUP: Diverticulitis with diverticular abscesses. INTERVAL HISTORY: Overnight, the patient has had some chills and continues to have considerable pain which is worse in the right lower quadrant now than the left. No fever has been noted, no shortness of breath, and no other new symptoms. PHYSICAL EXAMINATION: Reveals an afebrile woman in no acute distress. Temp 36.8, pulse 90, respiratory rate 16, blood pressure 132/81. She is awake, alert, and laughing. Examination of the eyes reveals no conjunctival abnormalities. Lungs are clear. Abdomen slightly distended with some right lower quadrant mild tenderness and some rebound in the right lower quadrant. LABORATORIES: Include a white count of 12,000, platelet count 500,000. Creatinine is 0.63. LFTs are normal. No blood cultures have been done. The abscess aspirate has a few gram-positive cocci in the Gram stain that are not growing which suggests they may be anaerobic. The surgeons indicate that they plan to take the patient to surgery on Saturday for definitive treatment of this process. IMPRESSION: 1. Diverticular abscess with plans for surgery. 2. I agree with continuing the current antibiotics which include Zosyn and metronidazole. It would appear that the metronidazole has been ordered as a single preoperative dose, which is of course very appropriate. 3. Infectious Disease will go ahead and sign off at this time, as I have little to add to the impending surgery and plans for definitive treatment of this process.
--- NOTE | 2017-01-18 13:21 | NUR ---
NUTRITION FOLLOW-UP/CALORIE COUNT: ASSESS: 61 YO F admit with complicated diverticulitis resulting in pelvic abscess. Pt will likely require sigmoid colectomy on Saturday per surgery. TPN is being considered if pt is unable to meet 100% of est. needs through full liquid diet, Calorie Count ordered 01/17 to establish overall intake. At this time pt continues with ~70% po intake, reporting good appetite with estimations of calories providing 100% est. needs of calorie/protein. Discussed kcal count documentation with RN, talked with pharmacist re kcal needs being met with oral intake at this time. PMHX: Diverticulitis, HTN, hypothyroid, GERD, Colon Polyps, fibromyalgia DIET: Full Liquid. PO ~75% x 3 meals. CALORIE COUNT: DAY 1: 2000 Kcal, 90g protein (95% kcal, 100% protein needs) LABS: Reviewed. Glu 115, A1c 57,Alb 3.1 MEDS: Reviewed GI: BM 01/18 x 1. WEIGHT: 104.55 kg BMI: 37.2 EST.NEEDS: OBESE Kcal: 7381-4403 (20-22 kcals/kg BW) Protein: 70-90 g (1.2-1.5 g/kg IBW) NUTRITION DIAGNOSIS: (1) Altered GI tract related to alteration in GI tract function/structure as evidenced by complicated diverticulitis/pelvic abscess--PERSISTS. INTERVENTION: (1) Continued to encourage po intake, at this time pt meeting 95% kcal, 100% protein needs from full liquid diet. Additional preferences obtained from pt (does not like pineapple gelatein or orange magic cup--transportation aide notified). Breakfast: Cream of Rice, Yogurt, Milk, Apple juice, Gelatein plus (150 kcals, 20 g pro), Impact adv Recovery (200 kcal, 18 g pro) Snack: Ensure (350 kcals, 20 g protein) Lunch: Cream of chicken, Pudding, Milk, Cranberry juice, Magic cup (290 kcals, 9 g pro), Impact adv Recovery (200 kcal, 18 g pro) Snack: Ensure (350 kcals, 20 g protein) Dinner: Thinned mashed potatoes, Yogurt, Milk, Apple juice, Magic cup (290 kcals, 9 g pro), Impact adv Recovery (200 kcal, 18 g pro) Snack: Ensure (350 kcals, 20 g protein) Supplements (Impact adv. recovery, ensure, magic cup, gelatein plus) will provide 2230 kcals and 132 g protein per day) Other food items provide approx. 1350 kcals and 49 g protein per day. (2) If TPN needs to be started, recommend starting TPN at 150 g dextrose, 50 g protein and 25 g lipids to provide 960 kcals and 50 gram protein per day to meet approx 50% of pt est. needs. However, this recommendation may need to be adjusted pending pt current po intake when/if TPN is initiated. MONITOR/EVAL: PO intake, labs, calorie count, nutritional status. Follow per high nutritional risk guidelines.
--- NOTE | 2017-01-18 15:22 | PCM.PNMED ---
Subjective Date of Service Jan 18, 2017 Subjective She is seen in her room to follow-up the diverticulitis. She says she feels about the same. She has been here for 7 days. Exam Vital Signs Vital Sign - Last Date Time Temp Pulse Resp B/P Pulse Ox O2 Delivery O2 Flow Rate FiO2 01/18/17 06:33 90 112/68 01/18/17 05:45 36.8 16 97 Room Air Intake and Output 01/17/17 01/17/17 01/18/17 Cumulative From/Thru 15:00 23:00 07:00 01/11/17 11:46 - 01/18/17 06:36 Intake Total 730 ml 400 ml 644 ml 69718 ml Output Total 6 ml 6 ml Balance 730 ml 400 ml 638 ml 81760 ml Intake Oral 600 ml 400 ml 400 ml 8949 ml IV Total 130 ml 244 ml 4871 ml Output Urine Total 6 ml 6 ml # Voids 4 70 # Bowel Movements 2 1 5 Exam Heart is regular rate and rhythm without murmur Lungs are clear to auscultation bilaterally Extremities no ankle edema Abdomen is notable for mild left lower quadrant tenderness, no organomegaly or masses. Soft. IVs and Medications Medications Reviewed: Medications were reviewed in detail Lab and Diagnostics Result Diagram: 01/18/17 0545 01/16/17 0735 X-Rays, CTs and MRIs PROCEDURE: CT ABDOMEN AND PELVIS WITH CONTRAST ([id number]) INDICATIONS: ABDOMINAL PAIN, R/O DIVERTICULITIS IMPRESSION: 1. Rectosigmoid diverticulitis. There are at least phlegmonous soft tissue changes within the pelvis with a probable developing small abscess. No free air is seen. Please note that percutaneous drainage would be difficult given overlying bowel loops, at this time. 2. Moderate wall thickening of at least a single small bowel loop extending into the right hemipelvis is felt to be reactive. No bowel obstruction. 3. Probable constipation. 4. Probable moderate-sized right hepatic hemangioma. Dedicated liver MRI or CT with contrast is recommended. 5. Non-masslike enlargement of the left adrenal gland may be related to hyperplasia. 6. Aortic and iliac artery atherosclerosis. Note: Acute findings were discussed with Dr. Rom Avila at 1146 hours (PST) on 01/08/17. Dictated by: Ramiro Mariano M.D. on 01/08/2017 at 10:38 PROCEDURE: CT ABDOMEN AND PELVIS WITH CONTRAST ([id number]) INDICATIONS: refractory diverticulitis r/o abscess TECHNIQUE: After the administration of oral and intravenous contrast, 5 mm thick sections acquired from the diaphragms to the symphysis. 5 mm thick coronal and sagittal reformats were performed. For radiation dose reduction, the following was used : automated exposure control, adjustment of mA and/or kV according to patient size. COMPARISON: [facility], CT, CT ABD PELVIS W CON, 01/08/2017, 10:48. IMPRESSION: 1. Acute diverticulitis. When the patient's acute symptoms have resolved, colonoscopy would be helpful to know exclude the possibility of an underlying lesion. 2. 2 loculated fluid collections within the pelvis are compatible with abscesses. Both of these have increased in size since the prior study. These raise the suspicion for a contained perforated diverticulum. No free air is evident. 3. No bowel obstruction. 4. Probable right hepatic hemangioma appears unchanged. 5. Right basilar pulmonary nodule. Six-month followup CT of the chest is recommended. Dictated by: Ramiro Mariano M.D. on 01/11/2017 at 13:19 Assessment & Plan 61-year-old lady was most medical history of hypertension, hypo-thyroidism,GERD , asthma, fibromyalgia and recently his diverticulitis presented to emergency room with progressively worsening abdominal pain of 1 week. # Acute diverticulitis with diverticular abscess,poa, Failed outpatient treatment,no SIRS. Surgery is on board, CT abd 01/16 showed unchanged abscess, pt underwent percutaneous drainage per IR on 01/16, drained small viscous fluid multiloculated in pelvic abscess. -pt is clinically stable, with non-surgical tx, afebrile, leukocytosis continued -Zosyn and Flagyl started in ED, continue Zosyn for now -Serial abdominal exams -Zofran when necessary for nausea -liquid diet, will advance diet, -appreciate follow up, surgery planned for January 21 after 3 more days of IV antibiotics, if still needed at that point. -appreciate ID input regarding duration and regimen of abx, awaits abscess culture. -TPN until surgery. # Hypertension, chronic -Continue HCTZ and lisinopril, BP stable now #Hypothyroidism, chronic -Continue Synthroid #Asthma, chronic - Continue Symbicort #Current smoker -Smokes 1 pack a day -Nicotine patch as needed -addressed smoking cessation extensively #History of GERD -PPI #ppx, -lovenox and ppi Full code,verified with patient Disposition: Home after surgery VTE Mechanical Devices: Intermittant Pneumatic CD Resuscitation Status: CPR: Attempt Resuscitation Jocelyn Mcmullen MD Jan 18, 2017 07:14
[2017-01-18 16:31] VITALS: BP 127/88; PULSE 97; O2SAT 95
--- NOTE | 2017-01-18 17:49 | NUR ---
Activity/Appetite/Pain Pt has been ambulating in the hallway with her during shift. She is consuming approximately 75% of her meals and is tolerating the full liquid diet at this time. Pt states that she had a BM today that was normal for her. Pain continues to peak at 6/10. Pt seems reticent to take pain medication except as needed for sleep. She states that she feels better when she sits up and moves about.
[2017-01-18 19:58] VITALS: BP 122/83; PULSE 92; RESP 17; O2SAT 100
[2017-01-19] MEDS: Ondansetron 2 mg/mL 2 mL Inj IVPUSH PRN ×3 (00:20→13:58)
[2017-01-19] MEDS: HYDROmorphone 1 mg/mL Inj IVPUSH PRN ×4 (00:20→19:05)
[2017-01-19] MEDS: Piperacillin-Tazo 3.375 Gm Inj 3.375 GM in Dextrose 5% Minibag Plus 50 ML IV SCH ×4 (01:46→20:13)
[2017-01-19 05:13] LABS: BASOPHILS % (AUTO) 0.3 % (0-3); EOSINOPHILS % (AUTO) 2.1 % (0-5); MONOCYTES % (AUTO) 9.1 % (4-12); Mean Corpuscular Volume 89.6 fL (81-100); NEUTROPHILS % (AUTO) 76.7 % (40-74); Platelet Count 486 bil/L (150-400)
[2017-01-19 05:34] VITALS: BP 115/71; PULSE 91; RESP 17; O2SAT 100
[2017-01-19] MEDS: Pantoprazole 40 mg ER24 Tablet PO SCH (06:00)
[2017-01-19 07:40] VITALS: BP 111/79; PULSE 94; RESP 20; O2SAT 95
[2017-01-19] MEDS: Fluticasone-Salmeterol 100-50 Inhaler INHALATION SCH ×2 (07:50→20:13)
[2017-01-19] MEDS: ESTRADIOL VAGINAL TOPICAL SCH ×2 (08:30→20:16)
--- NOTE | 2017-01-19 08:47 | PCM.PNSURG ---
Subjective Visit Information: Reason for Visit Diverticulitis Surgery/Surgery Date Post-Op Day # Date of Admission: Jan 11, 2017 at 14:19 Hospital Day # Subjective: Low abd pain about the same, feels better than when she first got here, walking the hallways, had a BM yesterday which was not bloody Objective Objective awake in bed Abd: obese, mildly tender at L suprapubic location just below her pannus, ecchymosis x3 on her pannus Vital Sign- Last 8 Hours Date Time Temp Pulse Resp B/P Pulse Ox O2 Delivery O2 Flow Rate FiO2 01/19/17 05:34 37.3 91 17 115/71 100 Room Air Intake and Output- Last 8 Hour 01/19/17 Cumulative From/Thru 07:00 01/11/17 11:46 - 01/19/17 05:35 Intake Total 710 ml 29552 ml Output Total 1500 ml 1506 ml Balance -790 ml 60348 ml Intake Oral 600 ml 79302 ml IV Total 110 ml 5104 ml Output Urine Total 1500 ml 1506 ml # Voids 82 # Bowel Movements 6 Result Diagram: 01/19/17 0455 01/16/17 0735 Assessment & Plan Impression Diverticulitis with pelvic abscess s/p attempted perc drain x1 by IR Problems: (1) Acute diverticulitis Status: Acute ICD Code: K57.92 (2) Intestinal diverticular abscess Status: Acute ICD Code: K63.0 (3) Prediabetes Status: Acute ICD Code: R73.03 Plan Nutrition supplement Will undergo a mechanical bowel prep and po abx bowel prep tomorrow Planned surgery scheduled for Saturday Continue abx Resuscitation Status: CPR: Attempt Resuscitation Miguel Valdivia MD Jan 19, 2017 08:47
--- NOTE | 2017-01-19 09:53 | NUR ---
NUTRITION FOLLOW-UP/CALORIE COUNT: ASSESS: 61 YO F admit with complicated diverticulitis resulting in pelvic abscess. Sigmoid colectomy scheduled for Saturday per surgery. TPN is being considered if pt is unable to meet 100% of est. needs through full liquid diet, Calorie Count ordered 01/17 to establish overall intake. At this time pt continues with ~60 - 75% PO intake, reporting good appetite with estimations of calories providing 100% est. needs of calorie/protein. Discussed kcal count documentation with RN, talked with pharmacist re kcal needs being met with oral intake at this time. PMHX: Diverticulitis, HTN, hypothyroid, GERD, Colon Polyps, fibromyalgia DIET: Full Liquid. PO ~60 - 75% x 4 meals. CALORIE COUNT: DAY 1: 2000 Kcal, 90g protein (95% kcal, 100% protein needs) CALORIE COUNT: DAY 2: 1500 Kcal, 70 g protein (71% kcal, 100% protein needs) LABS: Reviewed. No current labs ordered. MEDS: Reviewed GI: BM x 2 today, non-bloody. WEIGHT: 104.55 kg BMI: 37.2 EST.NEEDS: (CLASS II OBESITY, UPCOMING GI SURGERY): Kcal: 3860-2677 (20-22 kcals/kg BW) Protein: 70-90 g (1.2-1.5 g/kg IBW) NUTRITION DIAGNOSIS: (1) Altered GI tract related to alteration in GI tract function/structure as evidenced by complicated diverticulitis/pelvic abscess - PERSISTS. INTERVENTION: (1) Continued to encourage PO intake, at this time pt meeting 71% kcal, 100% protein needs from full liquid diet. Additional preferences obtained from pt (does not like pineapple gelatein or orange magic cup--cafeteria aide notified). Dinner 01/18 was not documented. Breakfast 01/19: Cream of Wheat, Yogurt, Whole Milk, Gelatein Plus (150 kcals, 20 g pro), Impact adv Recovery (200 kcal, 18 g pro) Snack: Ensure (350 kcals, 20 g protein) Supplements (Impact adv. recovery, ensure, magic cup, gelatein plus) will provide 2230 kcals and 132 g protein per day) (2) Do not recommend TPN at this time unless there is a PICC line already in place. If TPN ordered, recommend starting TPN at 150 g dextrose, 50 g protein and 25 g lipids to provide 960 kcals and 50 gram protein per day to meet approx 50% of pt est. needs. However, this recommendation may need to be adjusted pending pt current PO intake when/if TPN is initiated. MONITOR/EVAL: PO intake, labs, calorie count, nutritional status. Follow per high nutritional risk guidelines.
--- NOTE | 2017-01-19 11:43 | PCM.PNMED ---
Subjective Date of Service Jan 19, 2017 Subjective She is seen in her room to follow-up the diverticulitis and other chronic medical issues. Her pain is unchanged. Exam Vital Signs Vital Sign - Last Date Time Temp Pulse Resp B/P Pulse Ox O2 Delivery O2 Flow Rate FiO2 01/19/17 05:34 37.3 91 17 115/71 100 Room Air Intake and Output 01/18/17 01/18/17 01/19/17 Cumulative From/Thru 15:00 23:00 07:00 01/11/17 11:46 - 01/19/17 05:35 Intake Total 1101 ml 710 ml 34974 ml Output Total 1500 ml 1506 ml Balance 1101 ml -790 ml 48726 ml Intake Oral 978 ml 600 ml 94630 ml IV Total 123 ml 110 ml 5104 ml Output Urine Total 1500 ml 1506 ml # Voids 12 82 # Bowel Movements 1 6 Exam Heart is regular rate and rhythm without murmur Lungs are clear to auscultation bilaterally Abdomen is soft, bowel sounds positive, obese, no organomegaly, with mild left lower quadrant tenderness present. There is no ankle edema. IVs and Medications Medications Reviewed: Medications were reviewed in detail Lab and Diagnostics Result Diagram: 01/19/17 0455 01/16/17 0735 X-Rays, CTs and MRIs PROCEDURE: CT ABDOMEN AND PELVIS WITH CONTRAST ([id number]) INDICATIONS: ABDOMINAL PAIN, R/O DIVERTICULITIS IMPRESSION: 1. Rectosigmoid diverticulitis. There are at least phlegmonous soft tissue changes within the pelvis with a probable developing small abscess. No free air is seen. Please note that percutaneous drainage would be difficult given overlying bowel loops, at this time. 2. Moderate wall thickening of at least a single small bowel loop extending into the right hemipelvis is felt to be reactive. No bowel obstruction. 3. Probable constipation. 4. Probable moderate-sized right hepatic hemangioma. Dedicated liver MRI or CT with contrast is recommended. 5. Non-masslike enlargement of the left adrenal gland may be related to hyperplasia. 6. Aortic and iliac artery atherosclerosis. Note: Acute findings were discussed with Dr. Rom Avila at 1146 hours (PST) on 01/08/17. Dictated by: Ramiro Mariano M.D. on 01/08/2017 at 10:38 PROCEDURE: CT ABDOMEN AND PELVIS WITH CONTRAST ([id number]) INDICATIONS: refractory diverticulitis r/o abscess TECHNIQUE: After the administration of oral and intravenous contrast, 5 mm thick sections acquired from the diaphragms to the symphysis. 5 mm thick coronal and sagittal reformats were performed. For radiation dose reduction, the following was used : automated exposure control, adjustment of mA and/or kV according to patient size. COMPARISON: [facility], CT, CT ABD PELVIS W CON, 01/08/2017, 10:48. IMPRESSION: 1. Acute diverticulitis. When the patient's acute symptoms have resolved, colonoscopy would be helpful to know exclude the possibility of an underlying lesion. 2. 2 loculated fluid collections within the pelvis are compatible with abscesses. Both of these have increased in size since the prior study. These raise the suspicion for a contained perforated diverticulum. No free air is evident. 3. No bowel obstruction. 4. Probable right hepatic hemangioma appears unchanged. 5. Right basilar pulmonary nodule. Six-month followup CT of the chest is recommended. Dictated by: Ramiro Mariano M.D. on 01/11/2017 at 13:19 Assessment & Plan 61-year-old lady was most medical history of hypertension, hypo-thyroidism,GERD , asthma, fibromyalgia and recently his diverticulitis presented to emergency room with progressively worsening abdominal pain of 1 week. # Acute diverticulitis with diverticular abscess,poa, Failed outpatient treatment,no SIRS. Surgery is on board, CT abd 01/16 showed unchanged abscess, pt underwent percutaneous drainage per IR on 01/16, drained small viscous fluid multiloculated in pelvic abscess. -pt is clinically stable, with non-surgical tx, afebrile, leukocytosis continued -Zosyn and Flagyl started in ED, continue Zosyn for now -liquid diet, will advance diet, -appreciate follow up, surgery planned for January 21 after 2 more days of IV antibiotics, if still needed at that point. -appreciate ID input regarding duration and regimen of abx, awaits abscess culture. -TPN had been planned but that has been deferred per discussions between pharmacy and Dr. Fierro regarding continued maintenance oral fluid intake and nutrition. # Hypertension, chronic -Continue HCTZ and lisinopril, BP stable now #Hypothyroidism, chronic -Continue Synthroid #Asthma, chronic - Continue Symbicort #Current smoker -Smokes 1 pack a day -Nicotine patch as needed -addressed smoking cessation extensively earlier this hospitalization #History of GERD -PPI #ppx, -lovenox and ppi Full code,verified with patient Disposition: Home after surgery VTE Mechanical Devices: Intermittant Pneumatic CD Resuscitation Status: CPR: Attempt Resuscitation Jocelyn Mcmullen MD Jan 19, 2017 07:54
[2017-01-19 17:41] VITALS: BP 118/84; PULSE 107; RESP 18; O2SAT 98
--- NOTE | 2017-01-19 17:55 | NUR ---
Pain/mobility/nausea/po intake Pt medicated x2 with IV dilaudid with effective relief. Indep in room nausea rx given x2 before IV pain medication given. Pt tolerating full liquid diet. diet slips placed in folder for calorie count. reports "too much food"
[2017-01-19 18:23] VITALS: PULSE 102; RESP 20; O2SAT 98
[2017-01-20] MEDS: Piperacillin-Tazo 3.375 Gm Inj 3.375 GM in Dextrose 5% Minibag Plus 50 ML IV SCH ×4 (02:03→21:20)
[2017-01-20] MEDS: MetoCLOpramide 5 mg/mL 2 mL Inj IVPUSH PRN ×2 (02:42→16:58)
[2017-01-20] MEDS: HYDROmorphone 1 mg/mL Inj IVPUSH PRN ×5 (02:42→21:07)
[2017-01-20 02:49] VITALS: BP 110/74; PULSE 94; RESP 17; O2SAT 94
[2017-01-20 02:49] LABS: BASOPHILS % (AUTO) 0.2 % (0-3); EOSINOPHILS % (AUTO) 1.8 % (0-5); MONOCYTES % (AUTO) 9.5 % (4-12); Mean Corpuscular Volume 89.5 fL (81-100); Platelet Count 511 bil/L (150-400)
[2017-01-20 06:18] VITALS: BP 104/72; PULSE 85; RESP 17; O2SAT 97
[2017-01-20] MEDS: Pantoprazole 40 mg ER24 Tablet PO SCH (06:23)
--- NOTE | 2017-01-20 06:26 | NUR ---
Shift note uneventful night medicated only twice for pain and nausea states did have a formed BM during night
--- NOTE | 2017-01-20 07:13 | PCM.PNSURG ---
Subjective Visit Information: Reason for Visit Diverticulitis Surgery/Surgery Date Post-Op Day # Date of Admission: Jan 11, 2017 at 14:19 Hospital Day # Subjective: feels about the same, not dramatically improved, had a BM overnight Objective Objective Arousable in bed Abd: mildly tender LLQ/suprapubic location Vital Sign- Last 8 Hours Date Time Temp Pulse Resp B/P Pulse Ox O2 Delivery O2 Flow Rate FiO2 01/20/17 06:18 37.1 85 17 104/72 97 Room Air 01/20/17 02:49 37.5 94 17 110/74 94 Room Air Intake and Output- Last 8 Hour 01/20/17 Cumulative From/Thru 07:00 01/11/17 11:46 - 01/20/17 06:25 Intake Total 1070 ml 46628 ml Output Total 1506 ml Balance 1070 ml 03602 ml Intake Oral 920 ml 71833 ml IV Total 150 ml 5396 ml Output Urine Total 1506 ml # Voids 6 93 # Bowel Movements 1 8 Result Diagram: 01/20/17 0234 01/16/17 0735 Assessment & Plan Impression Diverticulitis with pelvic abscess WBC 14.6 today Problems: (1) Acute diverticulitis Status: Acute ICD Code: K57.92 (2) Intestinal diverticular abscess Status: Acute ICD Code: K63.0 (3) Prediabetes Status: Acute ICD Code: R73.03 Plan Mechanical and po abx bowel prep tonight NPO past midnight Planned OR tomorrow for sigmoid resection Continue current IV abx Resuscitation Status: CPR: Attempt Resuscitation Miguel Valdivia MD Jan 20, 2017 07:13
[2017-01-20] MEDS: Fluticasone-Salmeterol 100-50 Inhaler INHALATION SCH ×2 (07:39→21:07)
[2017-01-20] MEDS: Ondansetron 2 mg/mL 2 mL Inj IVPUSH PRN (07:42)
[2017-01-20] MEDS: ESTRADIOL VAGINAL TOPICAL SCH ×2 (08:13→20:30)
[2017-01-20 08:55] VITALS: BP 109/74; PULSE 104; RESP 16; RESP 20; O2SAT 96
[2017-01-20] MEDS ORDERED: PEG/Electrolytes 4,000 mL Solution PO ONE (12:00)
--- NOTE | 2017-01-20 12:56 | NUR ---
Dameon Paged to confirm order on colyte start time. confirmed he would like it started at 12pm today. Pt is unable to tolerate the taste. Called pharmacy to see if pt could mix anything for taste. They confirmed 7up or clear liquids would be fine to mix. Addendum: 01/20/17 at 1900 by STEPHIE BERNARDO RN Pt to be NPO at might. Dr Valdivia requested Jade be held in AM
--- NOTE | 2017-01-20 13:07 | PCM.PNMED ---
Subjective Date of Service Jan 20, 2017 Subjective Patient reports condition essentially unchanged overnight. Continues to have minimal appetite, but she is doing okay with clear liquid diet. Abdominal pain essentially resolved some some soreness is well controlled with current when necessary medications. Denies any chills or sweats. There is some concern for rash under breasts present for last couple days to possibly weeks. Otherwise no acute complaints Exam Vital Signs Vital Sign - Last Date Time Temp Pulse Resp B/P Pulse Ox O2 Delivery O2 Flow Rate FiO2 01/20/17 08:55 104 20 96 Room Air 01/20/17 08:55 37.0 109/74 Intake and Output 01/19/17 01/19/17 01/20/17 Cumulative From/Thru 15:00 23:00 07:00 01/11/17 11:46 - 01/20/17 06:25 Intake Total 982 ml 1070 ml 24648 ml Output Total 1506 ml Balance 982 ml 1070 ml 38380 ml Intake Oral 840 ml 920 ml 01899 ml IV Total 142 ml 150 ml 5396 ml Output Urine Total 1506 ml # Voids 5 6 93 # Bowel Movements 1 1 8 General: Alert, Oriented X3, Cooperative, Mild Distress Mouth: Mucous Membr Moist/[place] Cardiovascular: Regular Rate/Rhythm Abdomen: Tender, Non-distended, Soft, Other (normoactive bowel sounds) Extremities: No cyanosis/clubbing/edma bilat Neurological: Grossly Neurologically Intact IVs and Medications Medications Reviewed: Medications were reviewed in detail Lab and Diagnostics Result Diagram: 01/20/17 0234 01/16/17 0735 X-Rays, CTs and MRIs PROCEDURE: CT ABDOMEN AND PELVIS WITH CONTRAST ([id number]) INDICATIONS: ABDOMINAL PAIN, R/O DIVERTICULITIS IMPRESSION: 1. Rectosigmoid diverticulitis. There are at least phlegmonous soft tissue changes within the pelvis with a probable developing small abscess. No free air is seen. Please note that percutaneous drainage would be difficult given overlying bowel loops, at this time. 2. Moderate wall thickening of at least a single small bowel loop extending into the right hemipelvis is felt to be reactive. No bowel obstruction. 3. Probable constipation. 4. Probable moderate-sized right hepatic hemangioma. Dedicated liver MRI or CT with contrast is recommended. 5. Non-masslike enlargement of the left adrenal gland may be related to hyperplasia. 6. Aortic and iliac artery atherosclerosis. Note: Acute findings were discussed with Dr. Rom Avila at 1146 hours (PST) on 01/08/17. Dictated by: Ramiro Mariano M.D. on 01/08/2017 at 10:38 PROCEDURE: CT ABDOMEN AND PELVIS WITH CONTRAST ([id number]) INDICATIONS: refractory diverticulitis r/o abscess TECHNIQUE: After the administration of oral and intravenous contrast, 5 mm thick sections acquired from the diaphragms to the symphysis. 5 mm thick coronal and sagittal reformats were performed. For radiation dose reduction, the following was used : automated exposure control, adjustment of mA and/or kV according to patient size. COMPARISON: [facility], CT, CT ABD PELVIS W CON, 01/08/2017, 10:48. IMPRESSION: 1. Acute diverticulitis. When the patient's acute symptoms have resolved, colonoscopy would be helpful to know exclude the possibility of an underlying lesion. 2. 2 loculated fluid collections within the pelvis are compatible with abscesses. Both of these have increased in size since the prior study. These raise the suspicion for a contained perforated diverticulum. No free air is evident. 3. No bowel obstruction. 4. Probable right hepatic hemangioma appears unchanged. 5. Right basilar pulmonary nodule. Six-month followup CT of the chest is recommended. Dictated by: Ramiro Mariano M.D. on 01/11/2017 at 13:19 Assessment & Plan 61-year-old lady was most medical history of hypertension, hypo-thyroidism,GERD , asthma, fibromyalgia and recently his diverticulitis presented to emergency room with progressively worsening abdominal pain of 1 week. # Acute diverticulitis with diverticular abscess,poa, Failed outpatient treatment,no SIRS. Surgery is on board, CT abd 01/16 showed unchanged abscess, pt underwent percutaneous drainage per IR on 01/16, drained small viscous fluid multiloculated in pelvic abscess. - Pt is clinically stable, with non-surgical tx, afebrile, leukocytosis continued - Zosyn and Flagyl started in ED, continue Zosyn for now - Surgery is planning colectomy tomorrow with patient medically stabilized. - Liquid diet now with plan for bowel prep and afternoon as per surgery recommendations. #Superficial fungal infection beneath breasts - Trial of topical clotrimazole %1 cream twice a day. # Hypertension, chronic -Continue HCTZ and lisinopril, BP stable now #Hypothyroidism, chronic -Continue Synthroid #Asthma, chronic - Continue Symbicort #Current smoker -Smokes 1 pack a day -Nicotine patch as needed -addressed smoking cessation extensively earlier this hospitalization #History of GERD -PPI #ppx, -lovenox and ppi Disposition: Home after surgery Pain Evaluation: Adequate Pain Control VTE Mechanical Devices: Intermittant Pneumatic CD Resuscitation Status: CPR: Attempt Resuscitation Time spent 25 minutes Ryan Moses DO Jan 20, 2017 13:07
[2017-01-20 17:33] VITALS: BP 120/86; PULSE 81; RESP 16; O2SAT 98
[2017-01-20 22:18] VITALS: BP 116/76; PULSE 87; RESP 18; O2SAT 96
[2017-01-21] VITALS (18 sets, daily range): BP systolic 101–136; BP diastolic 73–95; PULSE 78–110; RESP 11–17; O2SAT 96–100
[2017-01-21] MEDS: Piperacillin-Tazo 3.375 Gm Inj 3.375 GM in Dextrose 5% Minibag Plus 50 ML IV SCH ×5 (02:31→20:53)
[2017-01-21] MEDS: HYDROmorphone 1 mg/mL Inj IVPUSH PRN ×5 (02:37→20:59)
[2017-01-21 03:25] LABS: BASOPHILS % (AUTO) 0.4 % (0-3); EOSINOPHILS % (AUTO) 2.9 % (0-5); MONOCYTES % (AUTO) 9.6 % (4-12); Mean Corpuscular Volume 87.8 fL (81-100); NEUTROPHILS % (AUTO) 73.2 % (40-74); Platelet Count 497 bil/L (150-400)
--- NOTE | 2017-01-21 04:24 | NUR ---
Bowel pre./Pain pt took 3200ml Golytely until mid night. pt state bowel cleared to watery. pt is NPO after mid night. Pt medicated x2 with IV Dilaudid with effective relief. pt ambulated independently in room. will continue to monitor and provide care.
[2017-01-21] MEDS ORDERED: Lactated Ringer's 1,000 ML IV ONE ×5 (05:00→14:00)
[2017-01-21] MEDS: MetoCLOpramide 5 mg/mL 2 mL Inj IVPUSH PRN (05:44)
[2017-01-21] MEDS: Pantoprazole 40 mg ER24 Tablet PO SCH (06:30)
--- NOTE | 2017-01-21 07:30 | NUR ---
Surgery Pt A&O. 8fl oz of Colyte remains. Pt states her bowel movements are clear at this time. Surgery transporters transferred patient via bed to OR. Pt to transfer to [facility] post surgery.
[2017-01-21] MEDS ORDERED: Lactated Ringer's 500 ML IV PRN (08:01)
[2017-01-21] MEDS ORDERED: Lactated Ringer's 1,000 ML IV SCH (08:01)
--- NOTE | 2017-01-21 08:04 | PCM.HPANE ---
Patient Data Date of Service: Jan 21, 2017 Surgeon Admitting Provider:Jn Pascual MD Attending Provider:Jn Pascual MD Primary Care Physician:Leslie Avila MD Other Provider: Reason for Visit Diverticulitis Ht/WT & BMI Height (Feet): 5 Height (Inches): 6 Height (Centimeters): 167 Weight (Kilograms): 104.55 Body Mass Index 37.2 Allergies Coded Allergies: oxybutynin (Verified Allergy, Severe, RASH, 01/11/17) phenobarbital (Verified Allergy, Severe, RASH, 01/11/17) Past Anesthesia History Anesthesia History: Denies:: Anesthesia Reactions, Malignant Hyperthermia Diabetes History Hx Diabetes?: No MRSA MRSA: No Medications Hypertension Medication: Yes Home Meds Incl Beta [place]: No Reported Medications Albuterol HFA (Proair HFA)8.5 Gm Hfa.aer.ad2 Puffs INHALATION Q4H PRN For Shortness of Breath 01/11/17 Rizatriptan 10 Mg Mcrflf88 Mg PO DIRECTED PRN migraine 01/11/17 Esomeprazole Magnesium 40 Mg Capsule.dr40 Mg PO DAILY 01/11/17 Lisinopril 10 Mg Mciwcr51 Mg PO DAILY 01/11/17 Levothyroxine 125 Mcg Dhelqp241 Mcg PO DAILY For Thyroid Replacement 01/11/17 Hydrochlorothiazide 25 Mg Fvikqi04 Mg PO DAILY 01/11/17 Fluticasone Propionate (Fluticasone Propionate Nasal)16 Gm [place].susp1-2 Sprays NASAL DAILY PRN For Congestion 01/11/17 Estradiol (Estrace)42.5 Gm Cream.appl1 Applic VAGINAL BID 01/11/17 Ciprofloxacin Hcl (Cipro (eq) 500 MG-6 Tab Prepack)1 Pkg Kis255 Mg PO BID 01/11/17 Naproxen Sodium (Aleve)220 Mg Sezfjft805 Mg PO BID PRN For Pain 01/11/17 Budesonide/Formoterol 80-4.5 mcg Inh (Symbicort 80-4.5 mcg Inh)120 Puff Inhaler2 Puffs INHALATION BID 01/11/17 Albuterol Neb Soln 2.5 Mg/3 Ml Vial.neb3 Ml INHALATION QID PRN For Shortness of Breath 01/11/17 History History of ENT Problems?: Yes HEENT History: Positive for:: Sinus Problem (S/P SEPTOPLASTY) TMJ Denies:: Cataracts Dysphagia Glaucoma Denture Type: None Teeth Condition: Missing Teeth Other HEENT Pertinent History: retinal artery occlusion 09/2015 Hx of Heart Problems?: Yes Cardiovascular History: Positive for:: Hypertension Denies:: Cardiac Surgery Chest Pain Congestive Heart Failure Edema Heart Murmur Irregular Heartbeat Pacemaker Thrombophlebitis Hx of Respiratory Problem?: Yes Respiratory History: Positive for:: Asthma (exercise-induced) Dyspnea Denies:: COPD Chest Surgery Emphysema Hemoptysis Pneumonia Tuberculosis Use of C-PAP Machine Hx Neurologic Problems?: Yes Neurological History: Positive for:: Headaches (migraines) Denies:: Alzheimer's Disease CVA Dementia Dizziness Parkinson's Disease Seizures Hx of GI Problems?: Yes Gastrointestinal History: Positive for:: Diverticulitis (with abscess) Other GI Pertinent History: hx colon polyps Hx of Problems?: Yes Genitourinary History: Positive for:: Urinary Tract Infection (current) Denies:: HX of Hemodialysis Kidney Stones HX of Peritoneal Dialysis: No Female Hx: Denies:: Currently Skin History: Denies:: History Skin Disorders? Pressure Ulcers Hx Musculoskeletal Problems?: Yes Musculoskeletal History: Positive for:: Degenerative Joint Denies:: Back Injury (C/OF BACK PAIN/HIP PAIN) Joint Replacement Musculoskeletal Trauma Hx of Psycho/Social Problems?: No Psycho Social History: Denies:: Anxiety Bipolar Disorder Hx Depression Suicide Attempt Hx Surgeries?: Yes (HYST,APPY,TONSILLECTOMY,EXC GANGLION WRIST,SEPTOPLASTY) Hx Any Other Health Problems?: Yes Other History: Positive for:: Thyroid Disease Denies:: Cancer Endocrine Disease Hospitalization History Blood Transfusions: Positive for:: Accept Blood Products? Blood Transfusions Denies:: Blood Transfuse Reaction Hx Diabetes: No Hx Alcohol Use: NoHx Substance Use: No Smoking Status: Unknown if Ever Smoker Have You Smoked inLast 12 mo: YesApprox How Many Cigarettes/day: 1ppd Stop/Bang Treated for Sleep Apnea?: No Do You Have a CPAP Machine?: No S-Snoring: Do You Snore Loudly: Yes T-Tired: feel tired, fatigued: No O-Obsered: Observed not breath: No P-Blood Pressure: treated: Yes B- Body Mass Index > 35 kg/m2: Yes A- Age over 50: Yes N- Neck Large Circumference: No G- Gender Male: No SHERON Total Score: 4 SHERON Category 1: Yes Risk Assessment Category Category 1A: Patient has history of documented sleep apnea, and HAS NOT received any narcotic, sedative or anesthesia administration during this stay. Category 1B: Patient has history of documented sleep apnea, and HAS received any narcotic , sedative or anesthesia administration during this stay Category 2: Patient has SUSPECTED Obstructive Sleep Apnea, and HAS received any narcotic , sedative or anesthesia administration during this stay. Category 3: Patient has SUSPECTED Obstructive Sleep Apnea and HAS NOT received narcotic, sedative or anesthesia administration during this stay. Category 4: Outpatient in Procedural Areas with known sleep apnea or who screen positive for High Risk via the STOP/BANG questionnaire. Exam Exam Vital Signs Vital Signs Date Time Temp Pulse Resp B/P Pulse Ox O2 Delivery O2 Flow Rate FiO2 01/21/17 06:02 36.5 78 16 108/73 97 Room Air General Appearance: Alert, Oriented X3, Cooperative, Mild Distress HEENT/AIRWAY: MP 2, Neck Movement (Full) Lungs: Clear to Auscultation, Normal Air Movement (Wide) Heart: Regular Rate/Rhythm, Normal S1, Normal S2 Meds/Labs/Diagnostics Admission Meds Current Medications Polyethylene Glycol/ Electrolytes (Colyte) 4,000 ml ONCE ONCE PO Last administered on 01/20/17 12:38; Start 01/20/17 at 12:00; Stop 01/20/17 at 12:01 ; Status DC Neomycin Sulfate (Neomycin Sulfate) 2,000 mg ONCE ONCE PO Last administered on 01/20/17 18:39; Start 01/20/17 at 19:00; Stop 01/20/17 at 19:01; Status DC Neomycin Sulfate (Neomycin Sulfate) 2,000 mg ONCE ONCE PO Last administered on 01/20/17 23:47; Start 01/20/17 at 23:00; Stop 01/20/17 at 23:01; Status DC Metronidazole HCl (Flagyl) 2,000 mg ONCE ONCE PO Last administered on 18:36; Start 01/20/17 at 19:00; Stop 01/20/17 at 19:01; Status DC Metronidazole HCl 2000 mg 2,000 mg ONCE ONCE PO Last administered on 23:44; Start 01/20/17 at 23:00; Stop 01/20/17 at 23:01; Status DC Lactated Ringer's (Lr) 1,000 ml @ 10 mls/hr Q24H ONCE IV Last administered on 01/21/17 06:31; Start 01/21/17 at 05:00; Stop 01/22/17 at 04:59 Clotrimazole (Mycelex 1% Cream) 1 applic BID TOPICAL Last administered on 21:07; Start 01/20/17 at 12:55 Labs Test 01/11/17 12:20 01/11/17 12:25 01/15/17 06:40 01/16/17 07:35 Urine Color Yellow (YELLOW) Urine Appearance Hazy (CLEAR,HAZY) Urine pH 7.5 (5.0-8.0) Urine Specific [place] 1.010 (1.003-1.035) Urine Protein Tracemg/dL (NEG,TRACE) Urine Glucose (UA) Negativemg/dL (NEGATIVE) Urine Ketones Negativemg/dL (NEGATIVE) Urine Occult Blood Trace (NEGATIVE) Urine Nitrite Negative (NEGATIVE) Urine Bilirubin Negative (NEGATIVE) Urine Urobilinogen Normalmg/dL (NORMAL) Urine Leukocyte Esterase Negative (NEGATIVE) Urine RBC 0-2/hpf (0-2) Urine WBC 0-5/hpf (0-5) Urine Epithelial Cells Occasional/hpf (NONE-MOD) Urine Crystals Amorphous phosphates Urine Bacteria Few/hpf (NONE-FEW) Urine Hyaline Casts None/lpf (NONE) Urine Granular Casts None seen (NONE SEEN) Urine Waxy Casts None seen (NONE SEEN) Urine Red Blood Cell Casts None seen (NONE SEEN) Urine White Blood Cell Casts None seen (NONE SEEN) Urine Mucus None seen (None Seen) Urine Trichomonas None seen (NONE SEEN) Urine Yeast None (NONE SEEN) Urinalysis Comment None Urine Culture Reflexed Not indicated Lactic Acid Level 0.8mmol/L (0.4-2.0) Lipase 13U/L (13-60) Phosphorus Level 4.3mg/dL (2.5-4.9) Magnesium Level 1.9mg/dL (1.6-2.6) Sodium Level 139mEq/L (134-144) Potassium Level 4.3mEq/L (3.5-5.2) Chloride Level 100mEq/L (97-108) Carbon Dioxide Level 27mmol/L (18-29) Blood Urea Nitrogen 8mg/dL (8-27) Creatinine 0.63mg/dL (0.57-1.00) Estimat Glomerular Filtration Rate 138mL/min (>59) Glucose Level 115mg/dL (60-99) Calcium Level 9.1mg/dL (8.5-10.1) Total Bilirubin 0.3mg/dL (0.0-1.2) Aspartate Amino Transf (AST/SGOT) 20U/L (0-50) Alanine Aminotransferase (ALT/SGPT) 25U/L (0-32) Alkaline Phosphatase 107U/L (25-165) Total Protein 5.6g/dL (6.4-8.4) Albumin 3.1g/dL (3.4-5.0) Test 01/16/17 12:50 01/17/17 07:55 01/21/17 03:04 Prothrombin Time 11.4sec (8.1-12.5) Prothromb Time International Ratio 1.06ratio Activated Partial Thromboplast Time 30.4sec (22.8-33.0) Hemoglobin A1c 5.7% (4.8-5.6) White Blood Count 9.8th/mm3 (3.8-10.1) Red Blood Count 4.03mil/mm3 (3.90-5.20) Hemoglobin 12.1g/dL (12.0-15.6) Hematocrit 35.4% (35.0-46.0) Mean Corpuscular Volume 87.8fL (81-100) Mean Corpuscular Hemoglobin 30.0pg (27.0-35.0) Mean Corpuscular Hemoglobin Concent 34.2% (32.0-37.0) Red Cell Distribution Width 13.3% (12.3-15.4) Platelet Count 497bil/L (150-400) Neutrophils (%) (Auto) 73.2% (40-74) Lymphocytes (%) (Auto) 13.5% (14-46) Monocytes (%) (Auto) 9.6% (4-12) Eosinophils (%) (Auto) 2.9% (0-5) Basophils (%) (Auto) 0.4% (0-3) Plan Impression Patient chart reviewed, patient interviewed and anesthestic plan with risks, benefits, and alternatives discussed, and informed consent obtained. NPO per Anesth. Guidelines: Yes ASA Physical Status: ASA2 Mod Systemic Disease Anesthetic Plan: GA Bene/Risks/Altern/Consents: Yes HP Complete Prior to Induction: Yes Slade Mata MD Jan 21, 2017 06:55
[2017-01-21] MEDS ORDERED: Dexamethasone 4 mg/mL Inj IVPUSH PRN (08:05)
[2017-01-21] MEDS ORDERED: Phenylephrine 10,000 mCg/mL Inj IVPUSH PRN (08:05)
[2017-01-21] MEDS ORDERED: Atropine 0.4 mg/mL Inj IVPUSH PRN (08:05)
[2017-01-21] MEDS ORDERED: fentaNYL-PF 50 mCg/mL 2 mL Inj IVPUSH PRN (08:05)
[2017-01-21] MEDS ORDERED: hydrALAZINE 20 mg/mL Inj IVPUSH PRN (08:05)
[2017-01-21] MEDS ORDERED: EPHEDrine Sulfate 50 mg/mL Inj IVPUSH PRN (08:05)
[2017-01-21] MEDS ORDERED: Albuterol 2.5 mg/3 mL Inhalation Solution NEB PRN (08:05)
[2017-01-21] MEDS ORDERED: Ondansetron 2 mg/mL 2 mL Inj IVPUSH PRN ×2 (08:05→14:40)
[2017-01-21] MEDS ORDERED: Labetalol 5 mg/mL 4 mL Inj IV PRN (08:05)
[2017-01-21] MEDS ORDERED: Bupivacaine-MPF 0.5% W/EPI 30 mL Inj INFILTRATE ONE (08:47)
--- NOTE | 2017-01-21 08:54 | CONS ---
[address] [address] CONSULTATION REPORT PATIENT: KG FLORES : 1955 MR#: [id number] ADMIT: 01/11/2017 JOB ID: [id number] DATE OF SERVICE: REQUESTING PHYSICIAN: Tabatha Fierro MD HISTORY: The patient is a 61-year-old woman with a past medical history of obesity, hypertension, hypothyroidism, GERD, and asthma, who presented to the [facility] Emergency Department on January 11, 2017, for further evaluation and management of an outpatient diagnosis of diverticulitis. She was seen in the Urgent Care Center days prior to admission, working diagnosis was UTI, and she was started on Cipro. Two days later, she had continued abdominal pain and saw her primary care physician. A CT scan was performed, demonstrating rectosigmoid diverticulitis and possible small abscess. Flagyl was added to her regimen in addition to ciprofloxacin, but the abdominal pain progressed, and ultimately she presented on January 11, 2017. Her white blood cell count at that time was 11.7, was not septic. She has been on bowel rest and IV antibiotics since admission, and Dr. Tabatha Fierro has been consulted because of the complicated nature and the pattern of clinical progress and response to conservative measures. Recommendation was made for sigmoid colectomy. ALLERGIES: 1. OXYBUTYNIN. 2. PHENOBARBITAL. OUTPATIENT MEDICATIONS: 1. Budesonide/formoterol. 2. Ciprofloxacin 500 b.i.d. 3. Esomeprazole 40 mg daily. 4. Estradiol 42.5 mg apply cream twice weekly vaginally. 5. Hydrochlorothiazide 25 mg p.o. daily. 6. Levothyroxine 125 mcg daily. 7. Lisinopril 10 mg daily. NEEDED MEDICATIONS: Include: 1. Rizatriptan 10 mg p.o. p.r.n. for migraine. 2. Naprosyn. 3. Fluticasone. 4. Albuterol nebulizer. 5. Albuterol HFA. PAST MEDICAL HISTORY: Includes diverticulitis as of January 19, hypothyroidism, hypertension, GERD, asthma, fibromyalgia. PAST SURGICAL HISTORY: Right knee arthroscopy, left knee arthroscopy, left total hip replacement 2012, colonoscopy in 2007 with finding of tubular adenoma, hysterectomy without oophorectomy, tonsillectomy, and appendectomy. SOCIAL HISTORY: She is . is supportive, and here today. Denies alcohol or substance use or abuse, other than cigarette smoking of 40 pack year history. PHYSICAL EXAMINATION: She is resting comfortably in bed. No acute distress. Head and neck exam is unremarkable. Chest: Equal, clear and unlabored bilaterally. Heart rate is regular. Abdomen is obese and protuberant. Bowel sounds are active. She has inked markings, also bilateral ecchymosis on either side of the umbilicus. Extremities: No pallor, edema, cyanosis or clubbing. DATABASE: Laboratories and CTs are reviewed. IMPRESSION: Complicated sigmoid diverticulitis. PLAN: Discussion, informed consent for cystoscopy and bilateral ureteral catheter placement for localization.
--- NOTE | 2017-01-21 10:23 | OP ---
[address] [address] OPERATIVE REPORT PATIENT: KG FLORES : 1955 MR#: [id number] ADMIT: 01/11/2017 JOB ID: [id number] DATE OF SURGERY: 01/21/2017 SURGEON: Naif Espinoza MD PREOPERATIVE DIAGNOSIS(ES): POSTOPERATIVE DIAGNOSIS(ES): ANESTHESIOLOGIST: Slade Mata MD ANESTHESIA: General. PROCEDURE SUMMARY: The patient was positioned in semi-lithotomy, and lower abdomen, genitalia, and groin were prepped and draped in sterile fashion. A 22-German panendoscope was passed to the lower urinary tract and a red labeled ureteral catheter was placed in the right ureter and a blue labeled ureteral catheter 5-German size was positioned in the left ureter under direct visualization. A 16-German Chandra catheter was then placed in the bladder. The balloon was filled with 10 cc and the contents of bladder drained. Each of the ureteral catheters were then brought through the female flange of the Chandra catheter creating an internalized drainage system. The ureteral catheters were further secured to the Chandra catheter with small op-site dressings folded in half. The catheter was placed to gravity drainage. The patient was then repositioned and Dr. Tabatha Fierro proceeded with planned laparoscopic sigmoid colectomy per her operative dictation.
[2017-01-21] MEDS ORDERED: fentaNYL-PF 50 mCg/mL 2 mL Inj ONE (11:22)
[2017-01-21] MEDS ORDERED: Ondansetron 2 mg/mL 2 mL Inj ONE (11:22)
[2017-01-21] MEDS ORDERED: Propofol 10 mg/mL 20 mL Inj ONE (11:22)
[2017-01-21] MEDS ORDERED: Neostigmine 1 mg/mL 10 mL Inj ONE (11:22)
[2017-01-21] MEDS ORDERED: Phenylephrine/NS 100 mCg/mL 10 mL Syringe IVPUSH ONE (11:22)
[2017-01-21] MEDS ORDERED: Glycopyrrolate 0.2 MG/ML 1mL Inj ONE (11:22)
[2017-01-21] MEDS ORDERED: Dexamethasone 4 mg/mL Inj ONE (11:22)
[2017-01-21] MEDS ORDERED: Rocuronium 10 mg/mL 5 mL Inj ONE (11:22)
[2017-01-21] MEDS ORDERED: HYDROmorphone 2 mg/mL Inj ONE (11:22)
[2017-01-21] MEDS ORDERED: Bupivacaine Liposome 1.3% 20 mL Inj ONE (13:28)
--- NOTE | 2017-01-21 14:34 | NUR ---
Social Work: Continued Discharge Planning D: Pt discussed in am rounds. Pt is scheduled for colectomy today. She is likely to be transferred to [facility] after procedure. EMR reviewed; pt has been ambulating I during admission. Pt was being considered for possible TPN however this has not yet been started. A: Pt who is I at baseline and lives at home with her supportive spouse. P: Evolving; Anticipate pt to likely discharge home. AGRONOMIST to continue to follow and assess for needs post-procedure. AUBREY Lama
[2017-01-21] MEDS ORDERED: MetoCLOpramide 5 mg/mL 2 mL Inj IVPUSH PRN (14:40)
[2017-01-21] MEDS ORDERED: HYDROmorphone 0.5 mg/0.5 mL iSecure Syringe IVPUSH PRN (14:40)
[2017-01-21] MEDS ORDERED: Insulin Human REGular Inj 100 UNIT in 0.9% Sodium Chloride-Pha MIX 100 ML IV SCH (14:43)
[2017-01-21] MEDS ORDERED: (U-500) Insulin Regluar, Human 500 Unit/mL Syringe SUBQ STA (14:45)
[2017-01-21] MEDS ORDERED: Insulin Human REGular-Omnicell 100 Unit/mL ONE (14:55)
--- NOTE | 2017-01-21 15:20 | PCM.ANEP1 ---
Post Anesthesia PACU Phase 1 Assessment Date of Service: Jan 21, 2017 Vital Signs Vital Signs Date Time Temp Pulse Resp B/P Pulse Ox O2 Delivery O2 Flow Rate FiO2 01/21/17 15:00 37.0 97 14 136/88 97 Simple Mask 10 01/21/17 14:45 99 15 130/83 98 Simple Mask 10 01/21/17 14:40 99 15 130/93 98 Simple Mask 10 01/21/17 14:35 95 15 122/86 98 Simple Mask 10 01/21/17 14:30 89 15 120/84 99 Simple Mask 10 01/21/17 14:25 36.6 101/79 Anesthetic Administered: GA Level of Alertness: Awake, talking NICOLE's with Equal Strength: Yes Pain: Yes Nausea or Vomiting: No CV Function & Hydration Stable: Yes Airway Device: Oxygen Delivery: Simple Mask Lungs: Normal Air Movement (Wide) PACU Phase 2 Assessment Complications: No Follow up Care: N/A Patient Instructions Provided: N/A Slade Mata MD Jan 21, 2017 15:20
[2017-01-21 15:25] LABS: BASOPHILS % (AUTO) 0.1 % (0-3); EOSINOPHILS % (AUTO) 0 % (0-5); MONOCYTES % (AUTO) 5.6 % (4-12); Mean Corpuscular Hemoglobin 30.1 pg (27.0-35.0); Mean Corpuscular Volume 88.4 fL (81-100); NEUTROPHILS % (AUTO) 92.3 % (40-74); Platelet Count 547 bil/L (150-400)
--- NOTE | 2017-01-21 15:30 | NUR ---
NUTRITION FOLLOW-UP: ASSESS: 61 YO F admitted with complicated diverticulitis resulting in pelvic abscess. Pt had laparoscopic sigmoid colectomy today. Pt diet has been advanced to clear liquids. Calorie count has been discontinued as pt is now s/p surgery. Consider re-ordering if needed once diet is advanced beyond clear liquids. PMHX: Diverticulitis, HTN, hypothyroid, GERD, Colon Polyps, fibromyalgia DIET: Clear Liquids, no po intake reported today. LABS: Reviewed. Labs pending today. MEDS: Reviewed GI: BM x 1 (01/20) WEIGHT: 104.55 kg. EST.NEEDS: (CLASS II OBESITY, UPCOMING GI SURGERY): Kcal: 4762-5333 (20-22 kcals/kg BW) Protein: 70-90 g (1.2-1.5 g/kg IBW) NUTRITION DIAGNOSIS: (1) Altered GI tract related to alteration in GI tract function/structure as evidenced by complicated diverticulitis/pelvic abscess - PERSISTS. INTERVENTION: (1) Continue to encourage PO intake and advance diet as able per surgery recommendations. (2) Ensure clear added to all trays while pt is on clear liquids. (3) Will add impact advanced recovery once diet has been advanced to full liquids per SCOAP guidelines. MONITOR/EVAL: PO intake, diet advancement / tolerance, labs, nutritional status. Follow per high nutritional risk guidelines.
--- NOTE | 2017-01-21 16:14 | NUR ---
took over care of this patient at 4:10 pm Addendum: 01/21/17 at 1615 by JEVON LEDEZMA CNA Amended: Links added.
--- NOTE | 2017-01-21 16:45 | PCM.PNMED ---
Subjective Date of Service Jan 21, 2017 Subjective Patient is now status post sigmoidectomy all tolerated with colostomy in place. Prior high amount of oxygen and prior but is otherwise in medically stable condition. Has no concerns or my evaluation of patient, versus significant pain obviously abdominal region but this has been relatively well controlled with current when necessary medications. No other acute complaints at this time. Exam Vital Signs Vital Sign - Last Date Time Temp Pulse Resp B/P Pulse Ox O2 Delivery O2 Flow Rate FiO2 01/21/17 16:12 36.5 98 17 136/90 Nasal Cannula 10.00 100 01/21/17 15:55 98 Intake and Output 01/20/17 01/20/17 01/21/17 Cumulative From/Thru 15:00 23:00 07:00 01/11/17 11:46 - 01/20/17 15:33 Intake Total 903 ml 32860 ml Output Total 1 ml 1507 ml Balance 902 ml 99689 ml Intake Oral 800 ml 89848 ml IV Total 103 ml 5499 ml Output Urine Total 1 ml 1507 ml # Voids 93 # Bowel Movements 8 General: Alert, Oriented X3, Cooperative, Moderate Distress Chest & Lungs: Chest Wall Normal Cardiovascular: Regular Rate/Rhythm Abdomen: Other (Abdomen is tender, colostomy in place in addition to drain filling with moderate amount of serous sanguinous fluid. ) Neurological: Grossly Neurologically Intact IVs and Medications Medications Reviewed: Medications were reviewed in detail Lab and Diagnostics Result Diagram: 01/21/17 1507 01/21/17 1507 X-Rays, CTs and MRIs PROCEDURE: CT ABDOMEN AND PELVIS WITH CONTRAST (PNL-7102) INDICATIONS: ABDOMINAL PAIN, R/O DIVERTICULITIS IMPRESSION: 1. Rectosigmoid diverticulitis. There are at least phlegmonous soft tissue changes within the pelvis with a probable developing small abscess. No free air is seen. Please note that percutaneous drainage would be difficult given overlying bowel loops, at this time. 2. Moderate wall thickening of at least a single small bowel loop extending into the right hemipelvis is felt to be reactive. No bowel obstruction. 3. Probable constipation. 4. Probable moderate-sized right hepatic hemangioma. Dedicated liver MRI or CT with contrast is recommended. 5. Non-masslike enlargement of the left adrenal gland may be related to hyperplasia. 6. Aortic and iliac artery atherosclerosis. Note: Acute findings were discussed with Dr. Rom Avila at 1146 hours (PST) on 01/08/17. Dictated by: Ramiro Mariano M.D. on 01/08/2017 at 10:38 PROCEDURE: CT ABDOMEN AND PELVIS WITH CONTRAST ([id number]) INDICATIONS: refractory diverticulitis r/o abscess TECHNIQUE: After the administration of oral and intravenous contrast, 5 mm thick sections acquired from the diaphragms to the symphysis. 5 mm thick coronal and sagittal reformats were performed. For radiation dose reduction, the following was used : automated exposure control, adjustment of mA and/or kV according to patient size. COMPARISON: [facility], CT, CT ABD PELVIS W CON, 01/08/2017, 10:48. IMPRESSION: 1. Acute diverticulitis. When the patient's acute symptoms have resolved, colonoscopy would be helpful to know exclude the possibility of an underlying lesion. 2. 2 loculated fluid collections within the pelvis are compatible with abscesses. Both of these have increased in size since the prior study. These raise the suspicion for a contained perforated diverticulum. No free air is evident. 3. No bowel obstruction. 4. Probable right hepatic hemangioma appears unchanged. 5. Right basilar pulmonary nodule. Six-month followup CT of the chest is recommended. Dictated by: Ramiro Mariano M.D. on 01/11/2017 at 13:19 Assessment & Plan 61-year-old lady was most medical history of hypertension, hypo-thyroidism,GERD , asthma, fibromyalgia and recently his diverticulitis presented to emergency room with progressively worsening abdominal pain of 1 week. # Acute diverticulitis with diverticular abscess,poa, Failed outpatient treatment,no SIRS. Surgery is on board, CT abd 01/16 showed unchanged abscess, pt underwent percutaneous drainage per IR on 01/16, drained small viscous fluid multiloculated in pelvic abscess. - Pt is clinically stable, status post sigmoidectomy, now has colostomy and peritoneal drain in place. Postoperative day #0 - Continue IV antibiotic therapy at this time, Zosyn as previously prescribed -Patient has been placed on a clear liquid diet to be advanced as tolerated #Superficial fungal infection beneath breasts - Trial of topical clotrimazole %1 cream twice a day. # Hypertension, chronic -Continue HCTZ and lisinopril, BP stable now #Hypothyroidism, chronic -Continue Synthroid #Asthma, chronic - Continue Symbicort #Current smoker -Smokes 1 pack a day -Nicotine patch as needed -addressed smoking cessation extensively earlier this hospitalization #History of GERD -PPI #ppx, -lovenox and ppi Disposition: Home following stabilization. Anticipate 2 days more. Pain Evaluation: Adequate Pain Control VTE Mechanical Devices: Intermittant Pneumatic CD Resuscitation Status: CPR: Attempt Resuscitation Time spent 20 minutes Ryan Moses DO Jan 21, 2017 16:45
[2017-01-21] MEDS: Dextrose 5% Lactated Ringer's 1,000 ML IV SCH (17:16)
[2017-01-21] MEDS: Heparin 5,000 Unit/mL Inj SUBQ SCH (17:27)
[2017-01-21] MEDS: Fluticasone-Salmeterol 100-50 Inhaler INHALATION SCH ×2 (20:00→21:06)
[2017-01-21] MEDS: ESTRADIOL VAGINAL TOPICAL SCH ×2 (20:00→20:30)
[2017-01-21] MEDS ORDERED: 0.9% Sodium Chloride 250 ML ONE (20:46)
[2017-01-21] MEDS: Acetaminophen IV 1,000 MG in IV Premix 1 EACH IV SCH (20:59)
[2017-01-22] VITALS (8 sets, daily range): BP systolic 107–161; BP diastolic 67–79; PULSE 78–104; RESP 16–20; O2SAT 95–100
--- NOTE | 2017-01-22 00:15 | OP ---
[address] [address] OPERATIVE REPORT PATIENT: KG FLORES : 1955 MR#: [id number] ADMIT: 01/11/2017 JOB ID: [id number] DATE OF SURGERY: 01/21/2017 PREOPERATIVE DIAGNOSIS(ES): Complicated diverticulitis. POSTOPERATIVE DIAGNOSIS(ES): Complicated diverticulitis. PROCEDURE PERFORMED: 1. Laparoscopic sigmoid colectomy with primary anastomosis and diverting loop ileostomy. 2. Rigid proctoscopy. 3. Laparoscopic mobilization of splenic flexure of the colon. 4. Rectus blocks with liposomal bupivacaine. SURGEON: Tabatha Fierro MD. FUNERAL SERVICE LICENSEE: 1. Miguel Valdivia MD. 2. Giovanny Vasquez PA-C. 3. Maico Wan MS4. HISTORY OF PRESENT ILLNESS: This is a 61-year-old woman who presented to the hospital on January 11, 2017, with abdominal pain. She underwent workup and was found to have complicated diverticulitis with pelvic abscesses which were not amenable to percutaneous drainage. She was treated with antibiotics for nearly a week and underwent repeat CT scan which showed a small increase in size of her pelvic abscesses, one which was in a location that could be aspirated via a transgluteal approach. This was performed, however, because of the loculation and numerous abscesses, her symptoms did not improve. Based on the overall trajectory of her disease, she was then consented for sigmoid colectomy. She remained an inpatient and underwent a full antibiotic and mechanical prep, consumed [employer] shakes prior to surgery, and although she had been smoking prior to her admission on January 11, remained abstinent from cigarettes in the 10 days preceding the operation. She was not a diabetic and hemoglobin A1c at the time of the operation was 5.7, albumin was 3.1. DESCRIPTION OF PROCEDURE: The patient was brought to the operating room and placed in supine position. General anesthesia was induced. A warming blanket and SCDs were placed. Antibiotics were infused. Bilateral ureteral stents were placed prior to the operation. Please see Dr. Naif Espinoza's description of this procedure for further details. Rigid sigmoidoscopy was then performed, which revealed loose stool and normal mucosa to 15 cm from the anal verge. The operative field was prepped and draped in sterile fashion and the patient was positioned in lithotomy. The abdomen was entered using an Optiview trocar via a vertical supraumbilical incision. The abdomen was insufflated. 5 mm ports were then placed in the right upper quadrant, right lower quadrant, midline between the umbilicus and pubis, and left lower quadrant of the abdomen. The right lower quadrant port ultimately was up sized to a 12 for the stapler later in the procedure. The vertical midline supraumbilical incision was elongated to extend to just below the umbilicus and a hand port was placed early in the procedure. I began by inspecting the pelvis. There were multiple adhesions of small bowel to the sigmoid colon. Prolonged adhesiolysis was performed in order to mobilize the small bowel loops out of the pelvis and off of the sigmoid colon. One bowel loop was deserosalized in the process, and later in the case this was repaired using a 3-0 silk Lembert stitch. Once the small bowel was completely mobilized off of the sigmoid colon, dissection began in a lateral to medial approach. Attention was taken during this portion of the procedure to take note of the location of the ureters bilaterally, which had been stented by Dr. Espinoza at the beginning of the case. There were several pus pockets that were encountered as the colon was mobilized deep in the pelvis. Copious suction and irrigation was performed. The colon was mobilized down to the peritoneal reflection and a transection point was chosen. The proximal rectum was then dissected posteriorly in order to create a window for the stapler. A 60 mm blue load of the Endo VILMA stapler was then used to divide the colon distally. This was distal to all of the inflammation. The colon was then flipped up proximally and the mesentery was taken close to the colon itself with a LigaSure device. Attention was then turned to the proximal dissection. The white line of Toldt was taken down proximally and the hepatic flexure was mobilized with care taken to preserve the contents of the retroperitoneum. The entire splenic flexure was mobilized and the omentum was taken off of the distal transverse colon in order to provide adequate length. Once this was performed, a proximal transection point was chosen at the junction between the descending and sigmoid colon, proximal to the inflammation. This was divided with a blue load of the Endo VILMA stapler as well. There was a small portion of mesentery that remained and this was divided with the LigaSure. The specimen was then removed via the hand port site. The proximal end was marked with a stitch. Later, at the end of the case, the specimen was opened and it was found to contain only inflammation, without sign of malignancy, and the lumen was very strictured. Attention was then turned to the anastomosis. Sizers were used to choose an EEA stapler of appropriate size. A 29 mm stapler was chosen. The proximal end was then exteriorized, the staple line was removed, and a 2-0 Prolene purse-string suture was created about the end of the colon. The was inserted and the Prolene suture was tied tight. It was reinserted and the abdomen was reinsufflated. The stapler was inserted into the rectum and the anastomosis was performed in end-to-end fashion. The spike of the EEA stapler was just to the left of the distal staple line during the anastomosis. Once this was complete, the donuts were checked, and they were both completely intact. An air leak test was performed and there was no sign of air leak. The small intestine was then checked and made sure that it was anterior to the descending colon. There was no tension on the anastomosis. Attention was turned to the diverting loop ileostomy which had been planned prior to the procedure due to the patient's poor nutritional status, recent smoking history, and severe pelvic inflammation. The cecum and ligament of Treitz were identified, and the terminal ileum was identified as well. There were multiple loops with adhesions that had previously been adhered to the sigmoid colon. A limited adhesiolysis was then performed in order to mobilize a loop which was proximal to the most inflamed of small bowel adhesions. This was brought out through a right mid abdominal ostomy site which had been marked preoperatively by the ostomy wound career law clerk. The right lower quadrant incision fascia was closed then using two interrupted 0 PDS stitches with a Wili-Monika device. The midline fascia was closed using a running 0 PDS stitch. Exparel rectus abdominis blocks were performed for postoperative analgesia. The midline wound was then irrigated copiously and closed with running 4-0 Monocryl. All port sites were closed with running 4-0 Monocryl. Dermabond was placed. Attention was turned to ostomy creation. The fascia had been opened using a cruciate incision to an adequate size. The bowel had been wrapped in Seprafilm for future ostomy takedown. The bowel was then opened using electrocautery and a Alka ileostomy was created using interrupted 3-0 Vicryl stitches. Once the ostomy was adequately matured, the ostomy bag was placed. The patient was awakened from general anesthesia and taken to postoperative care unit in good condition. COMPLICATIONS: None. SPECIMENS: Sigmoid colon, final specimen 18 cm in length, for permanent pathology. As noted above, it was opened on the back table at the end of the case and there was no sign of malignancy, but there was severe stricturing and inflammation. ESTIMATED BLOOD LOSS: 50 mL.
[2017-01-22] MEDS: Heparin 5,000 Unit/mL Inj SUBQ SCH ×3 (00:34→17:45)
[2017-01-22] MEDS: Piperacillin-Tazo 3.375 Gm Inj 3.375 GM in Dextrose 5% Minibag Plus 50 ML IV SCH ×4 (02:21→22:53)
[2017-01-22] MEDS: HYDROmorphone 1 mg/mL Inj IVPUSH PRN ×6 (02:21→21:35)
[2017-01-22] MEDS: Acetaminophen IV 1,000 MG in IV Premix 1 EACH IV SCH ×4 (03:27→22:27)
[2017-01-22] MEDS: Dextrose 5% Lactated Ringer's 1,000 ML IV SCH ×2 (04:59→18:23)
--- NOTE | 2017-01-22 05:41 | NUR ---
Pain/Chandra pt c/o 8-05/14 abdominal pain. Administered scheduled IV Tylenol and PRN IVP Dilaudid which was effective. Chandra drained brownish urine half of the shift, and urine start to cleared up to mehdi color (950ml). BATSHEVA drained 60ml serosanguinous. ostomy bag drained 10ml serosanguinous in color. BATSHEVA drain dressing C/D/I. 4 Lap. sites on the abdomen; No dressings to all and no drainage. pt denied nausea during this night.pt didn't get OOB until this time of the shift. pt on 2L O2 via NC with SPO2 in high 90s. will continue to monitor and provide care.
[2017-01-22 05:58] LABS: BASOPHILS % (AUTO) 0.1 % (0-3); EOSINOPHILS % (AUTO) 0.1 % (0-5); MONOCYTES % (AUTO) 9.7 % (4-12); Mean Corpuscular Hemoglobin 30.2 pg (27.0-35.0); Mean Corpuscular Volume 88.6 fL (81-100); NEUTROPHILS % (AUTO) 82.3 % (40-74); Platelet Count 493 bil/L (150-400)
[2017-01-22] MEDS: Pantoprazole 40 mg ER24 Tablet PO SCH (06:35)
--- NOTE | 2017-01-22 07:26 | NUR ---
Chandra D/C'ed Chandra D/C'ed at 0716 with Urine output 2225 pale mehdi urine
[2017-01-22] MEDS ORDERED: Insulin GLARgine 100 Unit/mL Syringe SUBQ STA (07:53)
[2017-01-22] MEDS: ESTRADIOL VAGINAL TOPICAL SCH ×2 (08:30→20:30)
--- NOTE | 2017-01-22 08:53 | PCM.PNSURG ---
Subjective Visit Information: Reason for Visit Diverticulitis Surgery/Surgery Date cystoscopy,zaria stents 01/21 Post-Op Day # Date of Admission: Jan 11, 2017 at 14:19 Hospital Day # Subjective: Stable overnight. Tolerated about 600mL total of clear liquids. Blood sugars all <180 on insulin gtt. No ostomy output yet. Has not been out of bed. Chandra discontinued this morning. 90mL serosang in BATSHEVA. About 950mL UOP. Small hct drop to 31. Objective Vital Sign- Last 8 Hours Date Time Temp Pulse Resp B/P Pulse Ox O2 Delivery O2 Flow Rate FiO2 01/22/17 07:31 37.0 78 20 107/72 98 Room Air 01/22/17 01:50 36.8 99 20 111/76 98 Room Air Intake and Output- Last 8 Hour 01/22/17 Cumulative From/Thru 07:00 01/11/17 11:46 - 01/21/17 18:48 Intake Total 94115 ml Output Total 2214 ml Balance 05590 ml Intake Oral 07093 ml IV Total 19912 ml Output Urine Total 2064 ml Drainage Total 100 ml Estimated Blood Loss 50 ml # Voids 93 # Bowel Movements 8 General: Alert, Oriented X3, Cooperative, No Acute Distress Abdomen: Soft, Appropriately tender, Non-distended, Ostomy pink & viable, Other (incisions c/d/i) Result Diagram: 01/22/17 0540 01/22/17 0540 Assessment & Plan Impression POD#1 laparoscopic sigmoid colectomy with diverting ostomy. Problems: Plan N: Combination of oral and IV analgesia. CV/R: Wean O2 GI: Full liquid diet : monitor UOP, expect some blood in urine which should improve in a few days as ureteral stents were used intraoperatively Heme: Heparin DVT PPX ID: Continue antibiotics as there was significant purulence encountered intraoperatively. Continue BASTHEVA drain. End: Stress hyperglycemia/prediabetes. I have written for 8 U glargine to help wean off insulin gtt. Continue insulin gtt for now. Goal is no blood sugars > 180. Dispo: Await return of bowel function. Resuscitation Status: CPR: Attempt Resuscitation Tabatha Fierro MD Jan 22, 2017 08:53
[2017-01-22] MEDS: Fluticasone-Salmeterol 100-50 Inhaler INHALATION SCH ×2 (09:41→21:48)
[2017-01-22] MEDS: Polyethylene Glycol (PEG) 17 Gm Powder PO SCH (12:22)
--- NOTE | 2017-01-22 16:42 | PCM.PNMED ---
Subjective Date of Service Jan 22, 2017 Subjective Patient feels better today, complains of mild lower abdominal pain. Exam Vital Signs Vital Sign - Last Date Time Temp Pulse Resp B/P Pulse Ox O2 Delivery O2 Flow Rate FiO2 01/22/17 15:18 37.2 102 18 118/75 98 Room Air 01/21/17 19:48 10.00 01/21/17 16:12 100 Intake and Output 01/21/17 01/21/17 01/22/17 Cumulative From/Thru 15:00 23:00 07:00 01/11/17 11:46 - 01/21/17 18:48 Intake Total 5558 ml 500 ml 79410 ml Output Total 257 ml 450 ml 2214 ml Balance 5301 ml 50 ml 27121 ml Intake Oral 222 ml 500 ml 62245 ml IV Total 5336 ml 48727 ml Output Urine Total 157 ml 400 ml 2064 ml Drainage Total 50 ml 50 ml 100 ml Estimated Blood Loss 50 ml 50 ml # Voids 93 # Bowel Movements 8 Exam GENERAL: Alert, not in distress, cooperative HEAD: atraumatic, normocephalic, no bruises. EYES: RANDALL, EOMI, anicteric, able to fully open and close eyelids SKIN: Skin color normal, turgor normal/decreased. No visible rashes or lesions. EAR, NOSE, MOUTH, THROAT: Lips, oral mucosa, tongue gums, oropharynx are moist , pink, no lesions. Ears normal appearance, no lesions. NECK: no jugulovenous distention, no carotid bruits, carotid pulse normal contour, No carotid bruit, supple, no enlarged lymph nodes appreciated; ROM normal. RESPIRATORY: Lungs clear to auscultation. Good diaphragmatic excursion. Normal percussion sound. CARDIAC: normal S1 and S2; no rubs, murmurs, or gallops; regular rate and rhythm ABDOMEN: Abdomen soft, mildly tender. BS normal. No masses or organomegaly. MUSCULOSKELETAL: ROM full, muscles are not tender EXTREMITIES: no pitting edema in LE, no deformities, clubbing or skin discoloration. NEURO: Alert, oriented X 3, Sensation grossly intact., Cranial nerves II-XII intact, Grossly normal motor function. PULSES: 2+ radial, 2+ carotid REVIEW OF SYSTEMS: GENERAL: No weight loss, + malaise, no fevers., SEE HPI HEENT: Negative for frequent or significant headaches, No changes in hearing or vision, no nose bleeds or other nasal problems All other reviewed and negative other than HPI. IVs and Medications Medications Reviewed: Medications were reviewed in detail Lab and Diagnostics Result Diagram: 01/22/17 0540 01/22/17 0540 X-Rays, CTs and MRIs PROCEDURE: CT ABDOMEN AND PELVIS WITH CONTRAST (PNL-7102) INDICATIONS: ABDOMINAL PAIN, R/O DIVERTICULITIS IMPRESSION: 1. Rectosigmoid diverticulitis. There are at least phlegmonous soft tissue changes within the pelvis with a probable developing small abscess. No free air is seen. Please note that percutaneous drainage would be difficult given overlying bowel loops, at this time. 2. Moderate wall thickening of at least a single small bowel loop extending into the right hemipelvis is felt to be reactive. No bowel obstruction. 3. Probable constipation. 4. Probable moderate-sized right hepatic hemangioma. Dedicated liver MRI or CT with contrast is recommended. 5. Non-masslike enlargement of the left adrenal gland may be related to hyperplasia. 6. Aortic and iliac artery atherosclerosis. Note: Acute findings were discussed with Dr. Rom Avila at 1146 hours (PST) on 01/08/17. Dictated by: Ramiro Mariano M.D. on 01/08/2017 at 10:38 PROCEDURE: CT ABDOMEN AND PELVIS WITH CONTRAST ([facility]-[id number]) INDICATIONS: refractory diverticulitis r/o abscess TECHNIQUE: After the administration of oral and intravenous contrast, 5 mm thick sections acquired from the diaphragms to the symphysis. 5 mm thick coronal and sagittal reformats were performed. For radiation dose reduction, the following was used : automated exposure control, adjustment of mA and/or kV according to patient size. COMPARISON: [facility], CT, CT ABD PELVIS W CON, 01/08/2017, 10:48. IMPRESSION: 1. Acute diverticulitis. When the patient's acute symptoms have resolved, colonoscopy would be helpful to know exclude the possibility of an underlying lesion. 2. 2 loculated fluid collections within the pelvis are compatible with abscesses. Both of these have increased in size since the prior study. These raise the suspicion for a contained perforated diverticulum. No free air is evident. 3. No bowel obstruction. 4. Probable right hepatic hemangioma appears unchanged. 5. Right basilar pulmonary nodule. Six-month followup CT of the chest is recommended. Dictated by: Ramiro Mariano M.D. on 01/11/2017 at 13:19 Assessment & Plan 61-year-old lady was most medical history of hypertension, hypo-thyroidism,GERD , asthma, fibromyalgia and recently his diverticulitis presented to emergency room with progressively worsening abdominal pain of 1 week. Patient was diagnosed with acute diverticulitis with abscess. She underwent abscess drainage on January 16 , sigmoidectomy on January 21. Acute diverticulitis with diverticular abscess; s/p IR drainage 01/16, sigmoidectomy01/21/2017 - stable - Continue IV antibiotic therapy at this time, Zosyn as previously prescribed - Advised diet as tolerated Superficial fungal infection beneath breasts - improving - Trial of topical clotrimazole %1 cream twice a day. Hypertension - stable -Continue HCTZ and lisinopril, BP stable now Hypothyroidism - stable -Continue Synthroid Asthma, chronic - stable - Continue Symbicort Current smoker -Smokes 1 pack a day -Nicotine patch as needed History of GERD -PPI DVT prophylaxis - -lovenox and ppi Disposition: Home following stabilization. Anticipate 2 days more. Labs, radiology tests reviewed. Plan of care, medication side effects, home medication, diagnostic procedures and available alternatives were discussed and reviewed with patient. All questions answered. Patient verbalized understanding, approved and agreed to plan of care. Given patient's current condition, I certify, in my opinion inpatient services greater than two midnights are medically necessary for this patient. Please see H&P and MD progress notes for additional information about patient's course of treatment. VTE Mechanical Devices: Intermittant Pneumatic CD Resuscitation Status: CPR: Attempt Resuscitation Ham Rodriguez MD Jan 22, 2017 16:42
--- NOTE | 2017-01-22 18:30 | NUR ---
Wound Note Patient seen at bedside, Iliostomy site inspected, excellent stoma formation is noted, perfectly sergo red and suture border at skin stoma junction looks very nice and intact draining thin sanguineous mucous output. Iliostomy teaching provided. Will follow up with this patient in the coming days for continued teaching.
[2017-01-23 00:46] VITALS: BP 139/70; PULSE 101; RESP 18; O2SAT 95
[2017-01-23] MEDS: Heparin 5,000 Unit/mL Inj SUBQ SCH ×3 (01:42→17:24)
[2017-01-23] MEDS: HYDROmorphone 1 mg/mL Inj IVPUSH PRN ×3 (01:42→11:40)
[2017-01-23] MEDS: Acetaminophen IV 1,000 MG in IV Premix 1 EACH IV SCH ×3 (03:31→20:29)
[2017-01-23] MEDS: Piperacillin-Tazo 3.375 Gm Inj 3.375 GM in Dextrose 5% Minibag Plus 50 ML IV SCH ×4 (04:02→23:13)
[2017-01-23 04:40] VITALS: BP 109/71; PULSE 107; RESP 20; O2SAT 95
[2017-01-23] MEDS: Ondansetron 2 mg/mL 2 mL Inj IVPUSH PRN (05:48)
[2017-01-23] MEDS: Dextrose 5% Lactated Ringer's 1,000 ML IV SCH (06:33)
[2017-01-23] MEDS: Pantoprazole 40 mg ER24 Tablet PO SCH (06:39)
--- NOTE | 2017-01-23 06:41 | NUR ---
Pain/Nausea/Blood sugar 3x Pain medication and 1x nausea medication requested by patient. Pain 7-8/10 changed to 5/10 with medication. Insulin drip running minimal, blood sugar well under control, algorithm 1 maintained throughout night, see intervention for details.
[2017-01-23] MEDS ORDERED: Insulin GLARgine 100 Unit/mL Syringe SUBQ ONE (07:20)
--- NOTE | 2017-01-23 07:25 | PCM.PNSURG ---
Subjective Visit Information: Reason for Visit Diverticulitis Surgery/Surgery Date cystoscopy,zaria stents 01/21 Post-Op Day # Date of Admission: Jan 11, 2017 at 14:19 Hospital Day # Subjective: Mild nausea controlled with antiemetics overnight. Tolerated 1850 PO yesterday. All BS <180 after glargine in am and with insulin gtt during the day. Ambulated in the room but not in the halls. Chandra was out yesterday am. UOP 1950. Ostomy output 600. Flatus in ostomy bag during the day yesterday as well. BATSHEVA 110 serosanguinous output. Objective Vital Sign- Last 8 Hours Date Time Temp Pulse Resp B/P Pulse Ox O2 Delivery O2 Flow Rate FiO2 01/23/17 04:40 36.9 107 20 109/71 95 Room Air 01/23/17 00:46 36.9 101 18 139/70 95 Room Air Intake and Output- Last 8 Hour 01/23/17 Cumulative From/Thru 07:00 01/11/17 11:46 - 01/23/17 06:38 Intake Total 1936 ml 55034 ml Output Total 1070 ml 5344 ml Balance 866 ml 49061 ml Intake Oral 728 ml 49466 ml IV Total 1208 ml 92342 ml Output Urine Total 410 ml 4424 ml Stool Total 600 ml 600 ml Drainage Total 60 ml 270 ml Estimated Blood Loss 50 ml # Voids 1 94 # Bowel Movements 8 General: Alert, Oriented X3, Cooperative, No Acute Distress Abdomen: Soft, Appropriately tender, Non-distended, Ostomy pink & viable, Other (brown stool in ostomy bag, clear fluid in BATSHEVA drain) Result Diagram: 01/22/17 0540 01/22/17 0540 Assessment & Plan Impression POD2 laparoscopic sigmoid colectomy doing well Problems: Plan Transition to oral medications Advance to full liquids, if she tolerates it, ADAT Glargine 15U this am, pt may wean off drip after administration, continue BG checks Ambulate in halls Pending labs this am, will f/u As she is demonstrating bowel function, anticipate possible discharge in next 1- 3 days if she tolerates PO and is able to ambulate Will need course of antibiotics upon discharge given significant purulence encountered during operative case from her diverticulitis. Resuscitation Status: CPR: Attempt Resuscitation Tabatha Fierro MD Jan 23, 2017 07:25
[2017-01-23 07:31] LABS: Mean Corpuscular Hemoglobin 29.9 pg (27.0-35.0); Mean Corpuscular Volume 88.9 fL (81-100)
[2017-01-23] MEDS: Fluticasone-Salmeterol 100-50 Inhaler INHALATION SCH ×2 (08:06→20:42)
[2017-01-23] MEDS: ESTRADIOL VAGINAL TOPICAL SCH ×2 (08:30→20:30)
[2017-01-23 09:20] VITALS: PULSE 98; RESP 16; O2SAT 95
[2017-01-23 09:49] VITALS: BP 107/70; PULSE 100; RESP 18; O2SAT 95
--- NOTE | 2017-01-23 10:48 | PATH ---
SURGICAL PATHOLOGY Attending Physician:Tabatha Fierro MD CASE STATUS: Signed Out PATIENT NAME: KG FLORES PID: [id number] : 1955 DATE COLLECTED:01/21/2017 00:00 SPECIMEN: 1: Colon, Segment Resection, Non-Tumor 2: Colon, Resection Margin (donut) 3: Colon, Resection Margin (donut) CLINICAL HISTORY: COMPLICATED SIGMOID DIVERTICULITIS 1). SIGMOID COLON 2). DISTAL RING 3). PROXIMAL RING FINAL DIAGNOSIS: 1.SIGMOID COLON (15.0 CM RESECTED LENGTH): CHRONIC ACTIVE DIVERTICULITIS WITH PERFORATION AND PERICOLIC ABSCESS. NO EVIDENCE OF MALIGNANCY. 2.DISTAL COLONIC RING: NO EVIDENCE OF MALIGNANCY. 3.PROXIMAL COLON RING: NO EVIDENCE OF MALIGNANCY. ICD10 K57.9 GROSS DESCRIPTION: The specimens are received in formalin, labeled with the patient's name, and sublabeled as the following: (1) sigmoid colon; (2) distal ring; (3) proximal ring. (1) The specimen consists of an opened segment of colon (length-15.0 cm, proximal diameter-2.5 cm, distal diameter-2.8 cm) with attached adipose tissue (up to 3.3 cm in depth). The resection margins are received stapled. A black suture indicates the proximal end. The mucosa is larry and shiny with compact distorted folds containing diffuse diverticuli. Ink code: black-resection margin. Section code: (1A) proximal resection margin, longitudinally sectioned, cash posting representative; (1B) distal resection margin, longitudinally sectioned, cash posting representative; (1C-1H) colon segment, serially sectioned and submitted proximal to distal, cash posting representative. (2) The specimen consists of an unoriented segment of colon (length-0.5 cm, diameter-1.4 cm) with attached adipose tissue (up to 3.0 cm in depth). The mucosa is larry smooth and shiny. No nodules or masses or lesions are identified. Ink code: black-resection margin. Section code: (2A-2B) colon segment, bisected, one half in each cassette; (2C) adipose tissue. Specimen entirely submitted. (3) The specimen consists of an unoriented segment of colon (length-0.7 cm, diameter-1.3 cm). The mucosa is larry smooth and shiny. No nodules or masses or lesions are identified. Ink code: black-resection margin. Section code: (3A-3B) colon segment, bisected, one half in each cassette. Specimen entirely submitted. 01/22/17 MICRO DESCRIPTION: See diagnosis. ICD-9 CODES: CPT CODES: 1: 38533 2: 63513 3: 48385 Electronically Signed Out Jordon Muro MD [facility] [address], [place] [address] Technical component performed at [facility], [facility] [address], [place], [address]
[2017-01-23] MEDS: Polyethylene Glycol (PEG) 17 Gm Powder PO SCH (11:59)
--- NOTE | 2017-01-23 13:03 | PCM.PNMED ---
Subjective Date of Service Jan 23, 2017 Subjective Patient feels better today. Exam Vital Signs Vital Sign - Last Date Time Temp Pulse Resp B/P Pulse Ox O2 Delivery O2 Flow Rate FiO2 01/23/17 09:49 36.9 100 18 107/70 95 Room Air 01/21/17 19:48 10.00 01/21/17 16:12 100 Intake and Output 01/22/17 01/22/17 01/23/17 Cumulative From/Thru 14:59 22:59 06:59 01/11/17 11:46 - 01/23/17 06:38 Intake Total 1910 ml 2684 ml 1936 ml 98489 ml Output Total 1010 ml 1050 ml 1070 ml 5344 ml Balance 900 ml 1634 ml 866 ml 64202 ml Intake Oral 650 ml 1200 ml 728 ml 54117 ml IV Total 1260 ml 1484 ml 1208 ml 45341 ml Output Urine Total 950 ml 1000 ml 410 ml 4424 ml Stool Total 0 ml 0 ml 600 ml 600 ml Drainage Total 60 ml 50 ml 60 ml 270 ml Estimated Blood Loss 50 ml # Voids 1 94 # Bowel Movements 8 Exam GENERAL: Alert, not in distress, HEAD: atraumatic, normocephalic, no bruises. EYES: RANDALL, EOMI, anicteric, able to fully open and close eyelids SKIN: Skin color normal, turgor normal. No visible rashes or lesions. EAR, NOSE, MOUTH, THROAT: Lips, oral mucosa, tongue gums, oropharynx are moist , pink, no lesions. NECK: supple, ROM normal. RESPIRATORY: Lungs clear to auscultation. Good diaphragmatic excursion. CARDIAC: normal S1 and S2; no murmurs, or gallops; regular rhythm ABDOMEN: Abdomen soft, tender. BS normal. MUSCULOSKELETAL: ROM full, muscles are not tender EXTREMITIES: no pitting edema in LE, no deformities, clubbing or skin discoloration. NEURO: Alert, oriented X 3, Cranial nerves II-XII intact, Grossly normal motor function. PULSES: 2+ radial, 2+ carotid REVIEW OF SYSTEMS: GENERAL: No weight loss, + malaise, no fevers., SEE HPI HEENT: Negative for frequent or significant headaches, All other reviewed and negative other than HPI. IVs and Medications Medications Reviewed: Medications were reviewed in detail Lab and Diagnostics Result Diagram: 01/23/17 0710 01/23/17 0710 X-Rays, CTs and MRIs PROCEDURE: CT ABDOMEN AND PELVIS WITH CONTRAST ([id number]) INDICATIONS: ABDOMINAL PAIN, R/O DIVERTICULITIS IMPRESSION: 1. Rectosigmoid diverticulitis. There are at least phlegmonous soft tissue changes within the pelvis with a probable developing small abscess. No free air is seen. Please note that percutaneous drainage would be difficult given overlying bowel loops, at this time. 2. Moderate wall thickening of at least a single small bowel loop extending into the right hemipelvis is felt to be reactive. No bowel obstruction. 3. Probable constipation. 4. Probable moderate-sized right hepatic hemangioma. Dedicated liver MRI or CT with contrast is recommended. 5. Non-masslike enlargement of the left adrenal gland may be related to hyperplasia. 6. Aortic and iliac artery atherosclerosis. Note: Acute findings were discussed with Dr. Rom Avila at 1146 hours (PST) on 01/08/17. Dictated by: Ramiro Mariano M.D. on 01/08/2017 at 10:38 PROCEDURE: CT ABDOMEN AND PELVIS WITH CONTRAST ([id number]) INDICATIONS: refractory diverticulitis r/o abscess TECHNIQUE: After the administration of oral and intravenous contrast, 5 mm thick sections acquired from the diaphragms to the symphysis. 5 mm thick coronal and sagittal reformats were performed. For radiation dose reduction, the following was used : automated exposure control, adjustment of mA and/or kV according to patient size. COMPARISON: [facility], CT, CT ABD PELVIS W CON, 01/08/2017, 10:48. IMPRESSION: 1. Acute diverticulitis. When the patient's acute symptoms have resolved, colonoscopy would be helpful to know exclude the possibility of an underlying lesion. 2. 2 loculated fluid collections within the pelvis are compatible with abscesses. Both of these have increased in size since the prior study. These raise the suspicion for a contained perforated diverticulum. No free air is evident. 3. No bowel obstruction. 4. Probable right hepatic hemangioma appears unchanged. 5. Right basilar pulmonary nodule. Six-month followup CT of the chest is recommended. Dictated by: Ramiro Mariano M.D. on 01/11/2017 at 13:19 Assessment & Plan 61-year-old lady was most medical history of hypertension, hypo-thyroidism,GERD , asthma, fibromyalgia and recently his diverticulitis presented to emergency room with progressively worsening abdominal pain of 1 week. Patient was diagnosed with acute diverticulitis with abscess. She underwent abscess drainage on January 16 , s/p sigmoidectomy on January 21. Acute diverticulitis with diverticular abscess; s/p IR drainage 01/16, sigmoidectomy 01/21/2017 - stable ,leukocytosis still present - Continue IV antibiotic - Advanced diet as tolerated Superficial fungal infection beneath breasts - improving - c/w current meds. Hypertension - stable -Continue HCTZ and lisinopril, BP stable now Hypothyroidism - stable -Continue Synthroid Asthma, chronic - stable - Continue Symbicort Current smoker -Smokes 1 pack a day -Nicotine patch as needed DM - stable - c/w current meds History of GERD -PPI DVT prophylaxis - -lovenox and ppi Disposition: Home following stabilization. Anticipate 2 days more. Labs, radiology tests reviewed. Plan of care, diagnostic procedures and available alternatives were discussed and reviewed with patient. All questions answered. Patient verbalized understanding, approved and agreed to plan of care. Given patient's current condition, I certify, in my opinion inpatient services greater than two midnights are medically necessary for this patient. Please see H&P and MD progress notes for additional information about patient's course of treatment. VTE Mechanical Devices: Intermittant Pneumatic CD Resuscitation Status: CPR: Attempt Resuscitation Ham Rodriguez MD Jan 23, 2017 13:03
--- NOTE | 2017-01-23 14:01 | NUR ---
Pain / Mobility Pt reports pain is less today compared to yesterday. Receiving pain control with alternating doses of 1 mg IVP Dilaudid Q 3 hrs and 10 mg PO oxycodone Q 4 hrs. Pt's movement from bed to the bathroom or to the chair is easier and more fluid today. Pt does report some lightheadedness after being up in the chair for approximately 1 hour. Pt resting comfortably in bed now. Care continues.
[2017-01-23] MEDS ORDERED: 0.9% Sodium Chloride 250 ML ONE ×2 (14:44→20:19)
[2017-01-23 15:22] VITALS: BP 115/75; PULSE 67; RESP 18; O2SAT 95
--- NOTE | 2017-01-23 15:31 | NUR ---
NUTRITION FOLLOW-UP: ASSESS: 61 YO F admitted with complicated diverticulitis resulting in pelvic abscess. Pt had laparoscopic sigmoid colectomy 01/21. Pts diet has been advanced to full liquids with diet to be advanced as tolerated per surgery. Pt is eating 25% of full liquid diet x 1 meal. PMHX: Diverticulitis, HTN, hypothyroid, GERD, Colon Polyps, fibromyalgia DIET: Full Liquids, Impact adv. recovery all trays. PO 25% of meals. LABS: Reviewed. Cr 0.52, Glu 139, Alb 3.3. MEDS: Reviewed GI: 600 ML stool reported 01/23. WEIGHT: 104.3 kg Admit wt: 104.55 kg. EST.NEEDS: (CLASS II OBESITY, GI SURGERY): Kcal: 4487-4428 (20-22 kcals/kg BW) Protein: 70-90 g (1.2-1.5 g/kg IBW) NUTRITION DIAGNOSIS: (1) Altered GI tract related to alteration in GI tract function/structure as evidenced by complicated diverticulitis/pelvic abscess - PERSISTS. INTERVENTION: (1) Continue to advance diet as tolerated per surgery. (2) Continue to send impact advanced recovery all trays. MONITOR/EVAL: PO intake, diet advancement / tolerance, labs, nutritional status. Follow per moderate nutritional risk guidelines.
[2017-01-23 20:38] VITALS: BP 104/75; PULSE 103; RESP 18; O2SAT 94
--- NOTE | 2017-01-24 | NUR ---
Transfer of Care This RN took over care of pt. at 2300 from Kriss Morales RN.
[2017-01-24] MEDS: Heparin 5,000 Unit/mL Inj SUBQ SCH ×2 (00:01→09:13)
--- NOTE | 2017-01-24 02:04 | NUR ---
Transfer of Care Kriss Morales RN took over care of this pt. at 0115. Report given.
[2017-01-24] MEDS: Piperacillin-Tazo 3.375 Gm Inj 3.375 GM in Dextrose 5% Minibag Plus 50 ML IV SCH (05:16)
[2017-01-24 06:00] VITALS: BP 112/76; PULSE 84; RESP 16; O2SAT 97
[2017-01-24] MEDS: Pantoprazole 40 mg ER24 Tablet PO SCH (06:21)
--- NOTE | 2017-01-24 07:18 | NUR ---
Pain/BG level Pt c/o abd pain 02/11 x 2. Oxycodone 10 mg given x2 this shift and was effective per Pt. BG q2h 140,101,110,116,106,121. Care continues.
[2017-01-24 07:50] VITALS: PULSE 101; RESP 16; O2SAT 96
--- NOTE | 2017-01-24 08:56 | PCM.PNSURG ---
Subjective Visit Information: Reason for Visit Diverticulitis Surgery/Surgery Date cystoscopy,zaria stents 01/21 Post-Op Day # Date of Admission: Jan 11, 2017 at 14:19 Hospital Day # Subjective: Tolerated mashed potatoes in addition to liquids yesterday. 1300 UOP, 1190 ostomy output . Ambulated in halls. Tolerating oral analgesia. Heart rate is at baseline compared to before surgery. Objective Vital Sign- Last 8 Hours Date Time Temp Pulse Resp B/P Pulse Ox O2 Delivery O2 Flow Rate FiO2 01/24/17 07:50 101 16 96 Room Air 01/24/17 06:00 36.4 84 16 112/76 97 Room Air Intake and Output- Last 8 Hour 01/24/17 Cumulative From/Thru 07:00 01/11/17 11:46 - 01/24/17 06:52 Intake Total 500 ml 69059 ml Output Total 410 ml 7354 ml Balance 90 ml 63198 ml Intake Oral 500 ml 30078 ml IV Total 99620 ml Output Urine Total 390 ml 5764 ml Stool Total 1190 ml Drainage Total 20 ml 350 ml Estimated Blood Loss 50 ml # Voids 94 # Bowel Movements 8 General: Alert, Oriented X3, Cooperative, No Acute Distress Abdomen: Soft, Appropriately tender, Non-distended, Ostomy pink & viable, Other (stool in ostomy bag, BATSHEVA with serosanguinous fluid. ) Result Diagram: 01/23/17 0710 01/23/17 0710 Assessment & Plan Impression POD 3 laparoscopic sigmoid colectomy doing well. OK to discharge from surgical standoint. Problems: Plan Please include in discharge medications: Augmentin to complete a 2 week postoperative course (end date 02/04/17) Tylenol 1000mg q6h Oxycodone PRN Imodium PRN ostomy output (to take if empties more than 4 ostomy bags are emptied per day). Please no NSAIDs Follow up in my office in 2-3 weeks. Follow up with PCP especially regarding prediabetes. No insulin recommended at discharge as stress hyperglycemia is resolving. Resuscitation Status: CPR: Attempt Resuscitation Tabatha Fierro MD Jan 24, 2017 08:56
[2017-01-24] MEDS: ESTRADIOL VAGINAL TOPICAL SCH (09:00)
[2017-01-24] MEDS: Fluticasone-Salmeterol 100-50 Inhaler INHALATION SCH (09:15)
[2017-01-24 09:22] VITALS: BP 114/79; PULSE 87; RESP 20; O2SAT 96
[2017-01-24] MEDS ORDERED: AMOX-366 PO (10:26)
[2017-01-24 10:33] LABS: BASOPHILS % (AUTO) 0.3 % (0-3); EOSINOPHILS % (AUTO) 3.4 % (0-5); MONOCYTES % (AUTO) 9.5 % (4-12); Mean Corpuscular Hemoglobin 29.5 pg (27.0-35.0); Mean Corpuscular Volume 89.8 fL (81-100); NEUTROPHILS % (AUTO) 76.8 % (40-74); Platelet Count 479 bil/L (150-400)
[2017-01-24] MEDS ORDERED: Piperacillin-Tazo 3.375 Gm Inj 3.375 GM in Dextrose 5% Minibag Plus 50 ML IV SCH (11:00)
--- NOTE | 2017-01-24 11:04 | PCM.DIMED ---
Discharge Instructions Date of Service Jan 24, 2017 Dates of Hospitalization Jan 11, 2017 at 14:19 Medication Instructions Additional med instructions Please take medicine as below Antibiotics, Augmentin to complete a 2 week postoperative course (end date ) You can take Tylenol 1000mg q6h for pain You can also take Oxycodone as needed for severe pain You can try Imodium as needed if ostomy output (to take if empties more than 4 ostomy bags are emptied per day). Please avoid any medicines in these class: Ibuprofen(advil, Motrin), Naproxen( Alleve) Diet Discharge Diet: No restrictions, Other Activity Discharge Activity: No restrictions Call your provider Call your provider for: Excessive diarrhea Patient Instructions Patient Instructions You were hospitalized with complicated diverticulitis with abscess, underwent bowel surgery. Please follow up wt in 2weeks as instructed Please follow medicine instruction as above Follow-up Provider: Tabatha Fierro MD Follow-up with PCP in: 2 weeks Jamie Skinner MD Jan 24, 2017 10:19
--- NOTE | 2017-01-24 11:05 | NUR ---
Social Work: Readiness for Discharge D: Pt discussed in am rounds. Pt is POD 3 today. Pt is medically stable for discharge. Per Surgery, pt to discharge on PO augmentin. Pt has been ambulatory in the hallways during admission. SW met with pt at bedside today regarding discharge plan. Pt is ready to discharge, excited to return home. Pt to discharge home with spouse to transport via POV. Pt denied any questions or concerns related to discharge. No discharge needs anticipated at this time. SW will continue to follow. A: Pt who is I at baseline and lives at home with her supportive spouse. P: Pt to discharge home today with spouse to transport via POV. No discharge needs identified at this time. SW will continue to follow. AUBREY Randle
[2017-01-24] MEDS ORDERED: LOPE-147 PO (11:08)
[2017-01-24] MEDS ORDERED: ACET-171 PO (11:08)
[2017-01-24] MEDS ORDERED: OXYC-474 PO (11:08)
[2017-01-24] MEDS: Polyethylene Glycol (PEG) 17 Gm Powder PO SCH (12:00)
--- NOTE | 2017-01-24 14:55 | NUR ---
Wound Care Patient seen for iliostomy teaching today, reviewed at length need for frequent hydration and patient to contact surgical service line if pouch is needing to be emptied more than 4 times a day, Imodium also recommended to slow down output if necessary.Dietary precautions reviewed. Moldable #[id number] wafer applied over Denita ring. Patient has follow up at [facility] 01/31 with ostomy nurse. All questions answered.
--- NOTE | 2017-01-24 15:26 | PCM.DC.MED ---
Discharge Summary Date of Service Jan 24, 2017 Dates of Hospitalization Date of Hospital Admission Jan 11, 2017 at 14:19 Date of Discharge: Jan 24, 2017 Providers: Admitting Physician: Jn Pascual MD Primary Care Physician: Leslie Avila MD Attending Physician: Jn Pascual MD Diagnosis at Time of Discharge Diagnosis at Time of Discharge acute dx Acute diverticulitis with diverticular abscess s/p Laparoscopic sigmoid colectomy with primary anastomosis and diverting loop ileostomy Superficial fungal infection beneath breasts chronic dx Hypertension Hypothyroidism, Asthma, Current smoker, DM, History of GERD Consultations General surgery Dr. Fierro Procedures XRay, CTs & MRIs PROCEDURE: CT ABDOMEN AND PELVIS WITH CONTRAST ([id number]) INDICATIONS: ABDOMINAL PAIN, R/O DIVERTICULITIS IMPRESSION: 1. Rectosigmoid diverticulitis. There are at least phlegmonous soft tissue changes within the pelvis with a probable developing small abscess. No free air is seen. Please note that percutaneous drainage would be difficult given overlying bowel loops, at this time. 2. Moderate wall thickening of at least a single small bowel loop extending into the right hemipelvis is felt to be reactive. No bowel obstruction. 3. Probable constipation. 4. Probable moderate-sized right hepatic hemangioma. Dedicated liver MRI or CT with contrast is recommended. 5. Non-masslike enlargement of the left adrenal gland may be related to hyperplasia. 6. Aortic and iliac artery atherosclerosis. Note: Acute findings were discussed with Dr. Rom Avila at 1146 hours (PST) on 01/08/17. Dictated by: Ramiro Mariano M.D. on 01/08/2017 at 10:38 PROCEDURE: CT ABDOMEN AND PELVIS WITH CONTRAST ([id number]) INDICATIONS: refractory diverticulitis r/o abscess TECHNIQUE: After the administration of oral and intravenous contrast, 5 mm thick sections acquired from the diaphragms to the symphysis. 5 mm thick coronal and sagittal reformats were performed. For radiation dose reduction, the following was used : automated exposure control, adjustment of mA and/or kV according to patient size. COMPARISON: Merged With [facility], CT, CT ABD PELVIS W CON, 01/08/2017, 10:48. IMPRESSION: 1. Acute diverticulitis. When the patient's acute symptoms have resolved, colonoscopy would be helpful to know exclude the possibility of an underlying lesion. 2. 2 loculated fluid collections within the pelvis are compatible with abscesses. Both of these have increased in size since the prior study. These raise the suspicion for a contained perforated diverticulum. No free air is evident. 3. No bowel obstruction. 4. Probable right hepatic hemangioma appears unchanged. 5. Right basilar pulmonary nodule. Six-month followup CT of the chest is recommended. Dictated by: Ramiro Mariano M.D. on 01/11/2017 at 13:19 Brief History History of present illness obtained by on 01/11 61-year-old lady was most medical history of hypertension, hypo-thyroidism,GERD , asthma, fibromyalgia and recently his diverticulitis presented to emergency room with progressively worsening abdominal pain of 1 week. She states she started to have lower abdominal, dull aching, constant pain last Saturday. She went to urgent care on Saturday. Urinalysis was done and she was started on ciprofloxacin for UTI. She continued to have lower abdominal pain and she went to see her PCP on Saturday. CT done outpatient done by PCP showed Rectosigmoid diverticulitis with a probable developing small abscess. Flagyl was added to ciprofloxacin and sent home. Abdominal pain progressively worsened which prompted ED visit. She also has nausea for the last 1 week and had 2 episodes of vomiting today. She states she had watery diarrhea 4 days prior to onset of abdominal pain last Saturday. Denies fever. Denies having urinary complaints. in ED: Vitals unremarkable, exam with lower abdominal tenderness R>L, WBC 11.7 other labs unremarkable. Repeat CT scan ordered Admission requested for acute diverticulitis rule out diverticular abscess, failed outpatient treatment Hospital Course 61-year-old lady was most medical history of hypertension, hypo-thyroidism,GERD , asthma, fibromyalgia and recently his diverticulitis presented to emergency room with progressively worsening abdominal pain of 1 week. Patient was diagnosed with acute diverticulitis with abscess. She underwent abscess drainage on January 16 , s/p sigmoidectomy on January 21. acute dx. Acute diverticulitis with diverticular abscess; Patient had a prolonged course of hospitalization as initially patient was waiting for improvement with nonsurgical treatment with antibiotics. However, repeat imagings of abd CT suggested abscess site was not changed. Patient underwent CT-guided drainage by IR on 01/16, which drained only minimal amount of fluid. Eventually, patient underwent Laparoscopic sigmoid colectomy with primary anastomosis and diverting loop ileostomy by . Since the surgery, patient remained stable on antibiotics. Throughout the hospitalization , patient received a total of 13 days of Zosyn, Flagyl as well, antibiotics were eventually switched to Augmentin per Dr. Fierro. Patient was tolerating diet, symptoms are controlled, deemed safer discharge. Plan is to follow-up with Dr. Fierro in the clinic in 2-3 weeks, Superficial fungal infection beneath breasts, improved with topical anti-fungal chronic dx, remained stable Hypertension Continued HCTZ and lisinopril Hypothyroidism, Continue Synthroid Asthma, chronic Continue Symbicort Current smoker, Smokes 1 pack a day, nicotine patch as needed DM, History of GERD, PPI Exam Vital Signs (Last) Date Time Temp Pulse Resp B/P Pulse Ox O2 Delivery O2 Flow Rate FiO2 01/24/17 09:22 36.8 87 20 114/79 96 Room Air 01/21/17 19:48 10.00 01/21/17 16:12 100 Exam NAD, comfortably laying down on the bed no JVD, MMM, no LAD RRR, nl s1, s2 no mrg CTAB, no w,c S,ND,NT,normoactive BS+ warm, no edema, pulses 2/2 Test 01/11/17 12:20 01/11/17 12:25 01/15/17 06:40 01/16/17 12:50 Urine Color Yellow (YELLOW) Urine Appearance Hazy (CLEAR,HAZY) Urine pH 7.5 (5.0-8.0) Urine Specific [place] 1.010 (1.003-1.035) Urine Protein Tracemg/dL (NEG,TRACE) Urine Glucose (UA) Negativemg/dL (NEGATIVE) Urine Ketones Negativemg/dL (NEGATIVE) Urine Occult Blood Trace (NEGATIVE) Urine Nitrite Negative (NEGATIVE) Urine Bilirubin Negative (NEGATIVE) Urine Urobilinogen Normalmg/dL (NORMAL) Urine Leukocyte Esterase Negative (NEGATIVE) Urine RBC 0-2/hpf (0-2) Urine WBC 0-5/hpf (0-5) Urine Epithelial Cells Occasional/hpf (NONE-MOD) Urine Crystals Amorphous phosphates Urine Bacteria Few/hpf (NONE-FEW) Urine Hyaline Casts None/lpf (NONE) Urine Granular Casts None seen (NONE SEEN) Urine Waxy Casts None seen (NONE SEEN) Urine Red Blood Cell Casts None seen (NONE SEEN) Urine White Blood Cell Casts None seen (NONE SEEN) Urine Mucus None seen (None Seen) Urine Trichomonas None seen (NONE SEEN) Urine Yeast None (NONE SEEN) Urinalysis Comment None Urine Culture Reflexed Not indicated Lactic Acid Level 0.8mmol/L (0.4-2.0) Lipase 13U/L (13-60) Phosphorus Level 4.3mg/dL (2.5-4.9) Magnesium Level 1.9mg/dL (1.6-2.6) Prothrombin Time 11.4sec (8.1-12.5) Prothromb Time International Ratio 1.06ratio Activated Partial Thromboplast Time 30.4sec (22.8-33.0) Test 01/17/17 07:55 01/24/17 10:25 Hemoglobin A1c 5.7% (4.8-5.6) White Blood Count 9.5th/mm3 (3.8-10.1) Red Blood Count 3.52mil/mm3 (3.90-5.20) Hemoglobin 10.4g/dL (12.0-15.6) Hematocrit 31.6% (35.0-46.0) Mean Corpuscular Volume 89.8fL (81-100) Mean Corpuscular Hemoglobin 29.5pg (27.0-35.0) Mean Corpuscular Hemoglobin Concent 32.9% (32.0-37.0) Red Cell Distribution Width 13.5% (12.3-15.4) Platelet Count 479bil/L (150-400) Neutrophils (%) (Auto) 76.8% (40-74) Lymphocytes (%) (Auto) 9.5% (14-46) Monocytes (%) (Auto) 9.5% (4-12) Eosinophils (%) (Auto) 3.4% (0-5) Basophils (%) (Auto) 0.3% (0-3) Sodium Level 139mEq/L (134-144) Potassium Level 4.0mEq/L (3.5-5.2) Chloride Level 100mEq/L (97-108) Carbon Dioxide Level 28mmol/L (18-29) Blood Urea Nitrogen 9mg/dL (8-27) Creatinine 0.57mg/dL (0.57-1.00) Estimat Glomerular Filtration Rate 154mL/min (>59) Glucose Level 137mg/dL (60-99) Calcium Level 8.8mg/dL (8.5-10.1) Total Bilirubin 0.3mg/dL (0.0-1.2) Aspartate Amino Transf (AST/SGOT) 19U/L (0-50) Alanine Aminotransferase (ALT/SGPT) 13U/L (0-32) Alkaline Phosphatase 59U/L (25-165) Total Protein 5.1g/dL (6.4-8.4) Albumin 2.8g/dL (3.4-5.0) Procalcitonin 0.08ng/mL (0.00-0.08) Discharge Medications Discharge Medications Amoxicillin/Clav K 875-125 mg (Augmentin 875-125 mg) 1 Each Tablet 1 TABLET PO BID Prescribed by: JAMIE PINK MD Budesonide/Formoterol 80-4.5 mcg Inh (Symbicort 80-4.5 mcg Inh) 120 Puff Inhaler 2 PUFFS INHALATION BID (Reported) Esomeprazole Magnesium (Esomeprazole Magnesium) 40 Mg Capsule.dr 40 MG PO DAILY (Reported) Estradiol (Estrace) 42.5 Gm Cream.appl 1 APPLIC VAGINAL BID (Reported) Hydrochlorothiazide (Hydrochlorothiazide) 25 Mg Tablet 25 MG PO DAILY (Reported ) Levothyroxine (Levothyroxine) 125 Mcg Tablet 125 MCG PO DAILY (Reported) Lisinopril (Lisinopril) 10 Mg Tablet 10 MG PO DAILY (Reported) As needed Acetaminophen (Acetaminophen) 500 Mg Tablet 1,000 MG PO Q6H PRN PRN For Pain Prescribed by: JAMIE PINK MD Albuterol HFA (Proair HFA) 8.5 Gm Hfa.aer.ad 2 PUFFS INHALATION Q4H PRN PRN For Shortness of Breath (Reported) Albuterol Neb Soln (Albuterol Neb Soln) 2.5 Mg/3 Ml Vial.neb 3 ML INHALATION QID PRN PRN For Shortness of Breath (Reported) Fluticasone Propionate (Fluticasone Propionate Nasal) 16 Gm Ponder.susp 1-2 SPRAYS NASAL DAILY PRN PRN For Congestion (Reported) Loperamide HCl (Imodium A-D) 2 Mg Capsule 2 MG PO BID PRN PRN For Diarrhea or Loose Stool Prescribed by: JAMIE PINK MD Oxycodone (Roxicodone) 5 Mg Tablet 5 MG PO Q4H PRN PRN For Pain Prescribed by: JAMIE PINK MD Rizatriptan (Rizatriptan) 10 Mg Tablet 10 MG PO DIRECTED PRN PRN migraine ( Reported) Additional med instructions Please take medicine as below Antibiotics, Augmentin to complete a 2 week postoperative course (end date ) You can take Tylenol 1000mg q6h for pain You can also take Oxycodone as needed for severe pain You can try Imodium as needed if ostomy output (to take if empties more than 4 ostomy bags are emptied per day). Please avoid any medicines in these class: Ibuprofen(advil, Motrin), Naproxen( Alleve) Followup Plan Disposition: home Discharge Diet: No restrictions, Other Discharge Activity: No restrictions Patient Instructions You were hospitalized with complicated diverticulitis with abscess, underwent bowel surgery. Please follow up [facility] in 2weeks as instructed Please follow medicine instruction as above Follow-up Provider: Tabatha Fierro MD Follow-up with PCP in: 2 weeks Time spent 65min Jamie Pink MD Jan 24, 2017 15:02
--- NOTE | 2017-01-24 15:27 | NUR ---
Social Work: Discharge D: Pt discussed in am rounds. Pt is POD 3 today. Pt is medically stable for discharge. Per Surgery, pt to discharge on PO augmentin. Pt has been ambulatory in the hallways during admission. Pt to discharge home with spouse to transport via POV. No discharge needs. A: Pt who is I at baseline and lives at home with her supportive spouse. P: Pt to discharge home today with spouse to transport via POV. No discharge needs identified. Paige Fernandez PRODUCTION CONTROLLER
[2017-01-24 15:52] VITALS: BP 129/80; PULSE 85; RESP 18; O2SAT 99
--- NOTE | 2017-01-24 16:30 | NUR ---
Discharge: Pt discharged from unit at 1620 to home with all belongings via private vehicle with . Left and right PIV removed and intact. Wound RN provided pt teaching for colostomy and BATSHEVA incision site, patient understood and had no questions and pt comfortable with care performing colostomy care on own prior to discharge. BATSHEVA was dc'd 01/24/17 @ 1115. Follow up wound appt has been made. New rx's and home meds discussed with pt, and all questions answered.
== END 2017-01-24 16:20 | disposition home or self-care (01) | DRG 330 ==
LOC: SED 11:43 → MOC 14:19 → OSC 01-21 16:08
PROVIDERS: ADMIT Internal Medicine; ATTEND Internal Medicine
PROC: 0W9J3ZX Drainage of Pelvic Cavity, Percutaneous Approach, Diagnostic (ICD-10-PCS; 2017-01-16)
PROC: 0DN84ZZ Release Small Intestine, Percutaneous Endoscopic Approach (ICD-10-PCS; 2017-01-21)
PROC: 0DJD8ZZ Inspection of Lower Intestinal Tract, Via Natural or Artificial Opening Endoscopic (ICD-10-PCS; 2017-01-21)
PROC: 0DTN4ZZ Resection of Sigmoid Colon, Percutaneous Endoscopic Approach (ICD-10-PCS; principal; 2017-01-21 07:30)
PROC: 0D1B4Z4 Bypass Ileum to Cutaneous, Percutaneous Endoscopic Approach (ICD-10-PCS; 2017-01-21 07:30)
DX: K57.20 Diverticulitis of large intestine with perforation and abscess without bleeding (principal); N39.0 Urinary tract infection, site not specified; I10 Essential (primary) hypertension; E03.9 Hypothyroidism, unspecified; M79.7 Fibromyalgia; J45.909 Unspecified asthma, uncomplicated; F17.210 Nicotine dependence, cigarettes, uncomplicated; K21.9 Gastro-esophageal reflux disease without esophagitis; K66.0 Peritoneal adhesions (postprocedural) (postinfection); R73.03 Prediabetes; B36.9 Superficial mycosis, unspecified

== ENCOUNTER 2017-03-13 00:09 | Day surgery (SDC) | payer OTHER ==
[~2017-03-13 00:09] MED LIST changes: -ADV250INHA INH; +ALBU8.5H2 INHALATION; +ESOM40CA53 PO; -FLE10 PO; -HCTZ25 PO; +HYDR25TA4 PO; -HYDROCODONE PO; +LEVO125T6 PO; -LEVOTHYROXINE 125MCG PO; +LISI10TA PO; -MELO15TA14 PO; -MULT-1018 PO; -NEX40C PO; -TOLT4CAP PO; -VITA-212 PO; -ZES10 PO
[2017-03-13] MEDS ORDERED: fentaNYL-PF 50 mCg/mL 2 mL Inj IVPUSH PRN (08:00)
[2017-03-13 12:37] VITALS: BP 112/68; PULSE 80; RESP 14; O2SAT 99
[2017-03-13 15:48] VITALS: BP 117/81; PULSE 71; RESP 16; O2SAT 100
[2017-03-13 15:57] VITALS: BP 111/76; PULSE 76; O2SAT 100
--- NOTE | 2017-03-13 16:16 | ENDO ---
[address] [address] ENDOSCOPY PROCEDURE PATIENT: KG FLORES : 1955 MR#: [id number] ADMIT: 03/13/2017 JOB ID: [id number] DATE: 03/13/2017 PROCEDURE: Colonoscopy. PREPROCEDURE DIAGNOSIS: Diverticulitis status post sigmoid colectomy; history of tubular adenoma. POSTPROCEDURE DIAGNOSIS: Diverticulitis status post sigmoid colectomy; history of tubular adenoma. PROCEDURE PERFORMED: Colonoscopy with anastomotic dilation. SURGEON: Tabatha Fierro M.D. HISTORY OF PRESENT ILLNESS: This is a 61-year-old woman who presented to the hospital with complicated diverticulitis with pelvic abscess approximately two months ago. She underwent initial management with IV antibiotics and percutaneous drainage, however, her disease process was refractory to this and, therefore, she underwent sigmoid colectomy on a semi-urgent basis as an inpatient. A diverting loop ileostomy was created at the time. Her previous colonoscopy had been nearly 10 years ago and a tubular adenoma had been found at that time. For all of these reasons, colonoscopy was indicated. FINDINGS: 1. The anastomosis was patent but required a small amount of pressure to advance a colonoscope through it. For that reason, balloon dilation was performed to 12 mm. The anastomosis appeared widely patent after the dilation. 2. No polyps, strictures or masses. DESCRIPTION OF PROCEDURE: The patient was brought to the procedure suite and placed in the left lateral decubitus position. Moderate anesthesia was induced. A digital rectal examination was performed and was normal. The colonoscope was advanced into the rectum. The previous anastomosis was seen and, although patent, required a small amount of pressure in order to advance the scope through it. The remainder of the colon was visualized to the cecum, which was identified by the ileocecal valve and the appendiceal orifice. The prep was good. Withdrawal time was 37 minutes, but there were no additional masses, strictures or polyps seen. Once I returned to the anastomosis, it still appeared to have a mild stenosis and, therefore, balloon dilation was performed to 12 mm. The anastomosis appeared widely patent after this. Of note, the anastomosis had been performed from the side of the rectum to the end of the colon, and, therefore, an associated rectal reservoir was seen. Retroflexed examination was not performed as I wanted to avoid additional trauma to the anastomosis after the dilation. The patient tolerated the procedure well. COMPLICATIONS: None. SPECIMENS: None. ESTIMATED BLOOD LOSS: None.
== END 2017-03-13 23:59 | disposition home or self-care (01) ==
LOC: END 00:09
PROVIDERS: ATTEND Surgery
DX: K57.92 Diverticulitis of intestine, part unspecified, without perforation or abscess without bleeding (principal); Z86.010 Personal history of colon polyps; Z90.49 Acquired absence of other specified parts of digestive tract; I10 Essential (primary) hypertension; K21.9 Gastro-esophageal reflux disease without esophagitis; E03.9 Hypothyroidism, unspecified; M54.16 Radiculopathy, lumbar region; Z87.891 Personal history of nicotine dependence; Z86.69 Personal history of other diseases of the nervous system and sense organs
CPT/HCPCS: 45386; 99153; G0500; J2250; J3010; J7030

== ENCOUNTER 2017-03-20 13:55 | Day surgery (SDC) | payer OTHER ==
[~2017-03-20] VITALS: Ht 167.6 cm; Wt 95.7 kg
[~2017-03-20 13:55] MED LIST changes: -LISI10TA PO; +Lactated Ringer's 1,000 ML IV ONE; +fentaNYL-PF 50 mCg/mL 2 mL Inj IVPUSH PRN
[2017-03-20 14:18] VITALS: BP 108/78; PULSE 75; RESP 17; O2SAT 99
[2017-03-20 15:17] VITALS: BP 107/68; PULSE 76; RESP 15; O2SAT 98
[2017-03-20 15:26] VITALS: BP 104/70; PULSE 77; RESP 15; O2SAT 99
[2017-03-20 15:36] VITALS: BP 95/73; PULSE 82; RESP 15; O2SAT 99
--- NOTE | 2017-03-20 15:44 | ENDO ---
[address] [address] ENDOSCOPY PROCEDURE PATIENT: KG FLORES : 1955 MR#: [id number] ADMIT: 03/20/2017 JOB ID: [id number] DATE: 03/20/2017 SURGEON: Tabatha Fierro M.D. PREPROCEDURE DIAGNOSIS: Colorectal anastomotic stricture. POSTPROCEDURE DIAGNOSIS: Colorectal anastomotic stricture. PROCEDURE PERFORMED: A flexible endoscopy with dilation of colorectal stricture using a ragxzic-aod-otovu balloon. HISTORY OF PRESENT ILLNESS: This is a 61-year-old woman who presented with complicated diverticulitis and underwent laparoscopic sigmoid colectomy with a diverting loop ileostomy. She had been due for a colonoscopy and, therefore, this was performed last week, revealing an anastomotic stricture. Prior to taking down her ileostomy, subsequent dilation was recommended to avoid complications related to the stricture. FINDINGS: The anastomosis was dilated to 18 mm with a through-the- scope balloon. It appeared widely patent at the completion of the procedure. DESCRIPTION OF PROCEDURE: The patient was brought to the endoscopy suite and placed in the lithotomy position. Moderate anesthesia was induced after a preprocedural pause. The endoscope was advanced into the rectum. The anastomosis was visualized and appeared patent. A moderate amount of pressure was required to advance the endoscope into the lumen of the colon. A rzprrxv-lst-hlvie balloon was then used to dilate the anastomosis first to 15 mm, then to 16.5 mm, and finally to 18 mm. There was evidence of mucosal break after the 18 mm dilation consistent with successful dilation. There was no sign of a perforation. The endoscope was withdrawn. The patient tolerated the procedure well. COMPLICATIONS: None. SPECIMENS: None. ESTIMATED BLOOD LOSS: 2 mL.
== END 2017-03-20 23:59 | disposition home or self-care (01) ==
LOC: END 13:55
PROVIDERS: ATTEND Surgery
DX: K91.3 Postprocedural intestinal obstruction (principal); K57.92 Diverticulitis of intestine, part unspecified, without perforation or abscess without bleeding; I10 Essential (primary) hypertension; E03.9 Hypothyroidism, unspecified; K21.9 Gastro-esophageal reflux disease without esophagitis; Z86.69 Personal history of other diseases of the nervous system and sense organs; Z86.010 Personal history of colon polyps; Z87.891 Personal history of nicotine dependence
CPT/HCPCS: 45340; 99153; G0500; J2250; J3010

== ENCOUNTER 2017-03-27 11:30 | Day surgery (SDC) | payer OTHER ==
[~2017-03-27] VITALS: Ht 167.6 cm; Wt 96.2 kg
[~2017-03-27 11:30] MED LIST changes: -Lactated Ringer's 1,000 ML IV ONE; -fentaNYL-PF 50 mCg/mL 2 mL Inj IVPUSH PRN
[2017-03-27] MEDS ORDERED: fentaNYL-PF 50 mCg/mL 2 mL Inj IVPUSH PRN (11:50)
[2017-03-27] MEDS ORDERED: Sodium Biphos-Phos 133 mL Enema RECTAL PRN (11:50)
[2017-03-27 11:52] VITALS: BP 111/75; PULSE 71; RESP 12; O2SAT 98
[2017-03-27] MEDS ORDERED: ASPI-973 PO (11:54)
[2017-03-27 15:22] VITALS: BP 113/74; PULSE 79; RESP 12; O2SAT 95
--- NOTE | 2017-03-27 15:27 | ENDO ---
[address] [address] ENDOSCOPY PROCEDURE PATIENT: KG FLORES : 1955 MR#: [id number] ADMIT: 03/27/2017 JOB ID: [id number] DATE OF SERVICE: 03/27/2017 PROCEDURE: Colonoscopy. PREPROCEDURAL DIAGNOSIS: History of diverticulitis, status post sigmoid colectomy with anastomotic stricture. POSTPROCEDURAL DIAGNOSIS: History of diverticulitis, status post sigmoid colectomy with anastomotic stricture. PROCEDURE PERFORMED: Flexible endoscopy of rectum and colorectal anastomosis with balloon dilation through the scope to 18 mm. SURGEON: Tabatha Fierro MD INSTRUMENT: [employer] [id number]-180AL MEDICATIONS: Versed 5 mg, fentanyl 100 mcg. HISTORY OF PRESENT ILLNESS: This is a 61-year-old woman who presented with diverticulitis with intraabdominal abscesses that were refractory to conservative management and underwent a sigmoid colectomy with colorectal anastomosis and diverting loop ileostomy. Postoperatively, she was found to have an anastomotic stricture and has been undergoing serial dilations. This is her 3rd dilation, in anticipation of ileostomy takedown. FINDINGS: Patent anastomosis amenable to dilation up to 18 mm. DESCRIPTION OF PROCEDURE: The patient was brought to the procedure suite and placed in left lateral decubitus position after preprocedural pause. Moderate anesthesia was induced. A digital rectal examination was performed and was normal. The endoscope was advanced to 10 cm, the location of the colorectal anastomosis. It appeared patent but slightly narrow. Balloon dilation was performed to 16.5 mm for one minute, and then again to 18 mm for 30 seconds. The balloon popped, presumably due to a staple from her anastomosis. Withdrawal of the balloon was performed and there was sign of mucosal change consistent with adequate dilation. The patient tolerated the procedure well. ESTIMATED BLOOD LOSS: None. COMPLICATIONS: None. SPECIMENS: None.
[2017-03-27 15:40] VITALS: BP 99/65; PULSE 85; RESP 12; O2SAT 100
[2017-03-27 15:41] VITALS: BP 101/73; PULSE 82; RESP 14; O2SAT 100
== END 2017-03-27 23:59 | disposition home or self-care (01) ==
LOC: SAS 11:30
PROVIDERS: ATTEND Surgery
DX: K91.3 Postprocedural intestinal obstruction (principal); K57.92 Diverticulitis of intestine, part unspecified, without perforation or abscess without bleeding; I10 Essential (primary) hypertension; M54.16 Radiculopathy, lumbar region; E03.9 Hypothyroidism, unspecified; K21.9 Gastro-esophageal reflux disease without esophagitis; Z86.010 Personal history of colon polyps; Z87.891 Personal history of nicotine dependence
CPT/HCPCS: 45340; G0500; J2250; J3010; J7030